=== PATIENT | female | born 1975 | race Caucasian/White ===

== ENCOUNTER 2020-07-22 16:03 | Outpatient (REF) | payer OTHER, SELFPAY ==
--- NOTE | 2020-07-22 16:08 | MM_ITS ---
EXAMINATION: MM SCREENING DIGITAL BREAST TOMOSYNTHESIS, BILATERAL CLINICAL INFORMATION: Screening. Asymptomatic. The lifetime risk of breast cancer based on the Tyrer-Cuzick Model is 27%. COMPARISON: Mammography: July 05, 2019 and May 22, 2018 TECHNIQUE: Digital breast tomosynthesis is performed in both the craniocaudal and mediolateral oblique views along with computer-aided detection (CAD). Synthesized 2D images are generated from the tomosynthesis. FINDINGS: The breasts are extremely dense, which lowers the sensitivity of mammography (ACR BI-RADS breast composition Category d). There are no significant masses, abnormal calcifications, or other abnormalities. MM/MM tomosynthesis screening BI IMPRESSION: There are no significant changes from prior study. ASSESSMENT: BI-RADS 1: Negative RECOMMENDATION: Routine annual mammography screening. This patient's information was entered into a reminder system with a target due date for their next mammogram.
== END 2020-07-22 16:04 | disposition home or self-care (01) ==
LOC: HO.MAMMO 16:03
PROVIDERS: PCP Internal Medicine; Visit Provider Internal Medicine
DX: Z12.31 Encounter for screening mammogram for malignant neoplasm of breast (principal)
CPT/HCPCS: 77063; 77067

== ENCOUNTER 2021-01-20 14:43 | Outpatient (REF) | payer OTHER, SELFPAY ==
[2021-01-21 03:59] LABS: CT PCR NOT DETECTED (Not Detect.); NG PCR NOT DETECTED (Not Detect.)
[2021-01-21 10:02] LABS: BV Int Neg Control Negative (Negative); BV Int Pos Control Positive (Positive)
== END 2021-01-20 14:44 | disposition home or self-care (01) ==
LOC: HO.LAB 14:43
PROVIDERS: PCP Internal Medicine; Referring Provider Internal Medicine; Visit Provider Obstetrics & Gynecology
DX: Z01.411 Encounter for gynecological examination (general) (routine) with abnormal findings (principal); Z11.3 Encounter for screening for infections with a predominantly sexual mode of transmission; B37.3 Candidiasis of vulva and vagina; Z91.89 Other specified personal risk factors, not elsewhere classified
CPT/HCPCS: 87480; 87491; 87510; 87591; 87660

== ENCOUNTER 2021-01-28 08:38 | Outpatient (REF) | payer OTHER, SELFPAY ==
--- NOTE | ~2021-01-28 | MR_ITS ---
EXAMINATION: MR BREAST WITHOUT AND WITH CONTRAST, BILATERAL CLINICAL INFORMATION: 45-year-old for high-risk screening; family history mother at age 50. COMPARISON: Correlation to mammogram of 07/22/2020. TECHNIQUE: Imaging was performed with a dedicated breast coil. Prior to the administration of contrast, bilateral axial T1 and bilateral axial T2 weighted sequences were obtained. After the uneventful administration of?7.5 mL of Gadavist, dynamic contrast-enhanced VIBRANT series through the breasts in the axial plane were performed. Subtracted images were performed and reviewed. A delayed sagittal sequence through both breasts was acquired. Additionally, CAD post-processing, including maximum intensity projections, 3-D reconstructions and kinetic analysis, were performed an independent workstation and reviewed by the interpreting radiologist is a portion of this exam. FINDINGS: The patient's fibroglandular tissue demonstrates moderate background enhancement. LEFT BREAST: There is moderate background enhancement which decreases the overall sensitivity of this examination. There are multiple enhancing foci demonstrating subthreshold and progressive-type kinetics. There is an oval T2 bright mass in the 1 o'clock position, 7.6 cm from the nipple. This may represent an intramammary lymph node (axial subtracted image 52/124). There are no areas of mass or non-mass enhancement suspicious of malignancy. There are no secondary signs of malignancy. There are scattered bright masses consistent with small cysts. There are no additional findings on kinetic curve analysis. RIGHT BREAST: There is a oval enhancing T2 bright mass in the 10 o'clock position, 6 cm from the nipple measuring 2.9 cm. This appears to correspond to a intramammary lymph node which can be seen on mammography (axial subtracted image 68/124). Similar to the contralateral breast, there is moderate background enhancement which decreases the overall sensitivity of this examination. Multiple enhancing foci are also noted demonstrating subthreshold-type kinetics. There are no areas of mass or non-mass enhancement suspicious of malignancy. There are multiple T2 bright masses consistent with cysts. There are no additional findings on kinetic curve analysis. There is no suspicious internal mammary chain or axillary adenopathy. Limited views of the chest and abdomen are unremarkable. MR/MR breast BI wo/w con IMPRESSION: 1. Left breast with oval enhancing T2 bright mass 1 o'clock position which may represent an intramammary lymph node. 2. Right breast with oval enhancing T2 bright mass 10 o'clock position which may represent an intramammary lymph node. ASSESSMENT: LEFT BREAST: BI-RADS 3, probably benign. RIGHT BREAST: BI-RADS 3, probably benign. RECOMMENDATIONS: Short-interval follow-up in 6-12 months to assess findings in the breasts bilaterally.
== END 2021-01-28 08:39 | disposition home or self-care (01) ==
LOC: HO.MRI 08:38
PROVIDERS: PCP Internal Medicine; Visit Provider Obstetrics & Gynecology
DX: Z91.89 Other specified personal risk factors, not elsewhere classified (principal); Z80.3 Family history of malignant neoplasm of breast
CPT/HCPCS: 77049; A9585

== ENCOUNTER 2021-05-05 09:26 | Outpatient (REF) | payer OTHER, SELFPAY ==
[2021-05-05 11:20] LABS: MANUAL DIFF FLAG NO
[2021-05-05 11:26] LABS: Basophils Percent Auto 0.5 % (0-2); Eosinophils Absolute Auto 0.2 X10*3/uL (0.0-0.4); Eosinophils Percent Auto 4.1 % (0-4); Hematocrit 44.9 % (37-47); Hemoglobin 14.4 g/dl (12.0-16.0); Imm Gran Abs Auto 0.01 X10*3/uL (0.00-0.03); Imm Gran Pct Auto 0.2 % (0.0-0.4); Lymphocytes Absolute Auto 1.3 X10*3/uL (1.2-4.9); Lymphocytes Percent Auto 22.3 % (20-40); Mean Corpuscular HGB Conc 32.1 g/dl (31.0-35.0); Mean Corpuscular Hemoglobin 30.4 pg (27.0-33.0); Mean Corpuscular Volume 94.9 fL (80-98); Mean Platelet Volume 9.1 fL (9.4-12.3); Monocytes Absolute Auto 0.4 X10*3/uL (0.1-1.2); Monocytes Percent Auto 6.3 % (2-11); Neutrophils Absolute Auto 3.9 X10*3/uL (2.0-8.3); Neutrophils Percent Auto 66.6 % (45-73); Platelet Count 381 X10*3/uL (160-400); Red Blood Count 4.73 X10*6/uL (4.20-5.50); Red Cell Distribution Width 12.4 % (11.0-16.0); White Blood Count 5.9 X10*3/uL (4.8-10.8)
[2021-05-05 11:48] LABS: Alanine Aminotransferase 41 U/L (0-31); Albumin Level 4.2 g/dL (3.5-5.0); Alkaline Phosphatase 44 U/L (39-117); Anion Gap 10 (12-20); Aspartate Amino Transferase 26 U/L (5-31); Bilirubin Total 1.5 mg/dL (0.0-1.0); Blood Urea Nitrogen 12 mg/dL (9-16); Calcium 9.3 mg/dL (8.4-10.2); Carbon Dioxide 27 mmol/L (22-29); Chloride 103 mmol/L (96-108); Cholesterol 189 mg/dL; Estimated Glomerular Filt Rate > 60; Glucose Fasting 101 mg/dL (60-99); HDL Cholesterol 51 mg/dL; LDL Cholesterol Calculated 123 mg/dl; Potassium 4.2 mmol/L (3.3-5.1); Sodium 136 mmol/L (135-145); Total Protein 6.9 g/dL (6.5-8.0); Triglycerides 76 mg/dL
[2021-05-05 12:09] LABS: Free T4 (Free Thyroxine) 1.11 ng/dL (0.71-1.85); Thyroid Stimulating Hormone 0.77 uIU/mL (0.32-4.0)
[2021-05-05 12:21] LABS: Estimated Average Glucose 97 mg/dL
== END 2021-05-05 09:27 | disposition home or self-care (01) ==
LOC: HO.MANLDS 09:26
PROVIDERS: PCP Physician Assistant; Visit Provider Physician Assistant
DX: Z00.00 Encounter for general adult medical examination without abnormal findings (principal); R63.5 Abnormal weight gain
CPT/HCPCS: 36415; 80053; 80061; 83036; 84439; 84443; 85025

== ENCOUNTER 2021-08-31 16:24 | Outpatient (REF) | payer OTHER, SELFPAY ==
--- NOTE | ~2021-08-31 | MM_ITS ---
EXAMINATION: MM SCREENING DIGITAL BREAST TOMOSYNTHESIS, BILATERAL CLINICAL INFORMATION: Screening. Asymptomatic. Family history breast cancer, mother. The lifetime risk of breast cancer based on the Tyrer-Cuzick Model is 25%. COMPARISON: Mammography: 07/22/2020, 07/05/2019, 05/22/2018; bilateral breast MRI 01/28/2021 TECHNIQUE: Digital breast tomosynthesis is performed in both the craniocaudal and mediolateral oblique views along with computer-aided detection (CAD). Synthesized 2D images are generated from the tomosynthesis. Additional right MLO view is provided. FINDINGS: The breasts are heterogeneously dense, which may obscure small masses (ACR BI-RADS breast composition Category c). There are no significant masses, abnormal calcifications, or other abnormalities. Parenchymal pattern is similar to prior studies. There is no developing density or architectural abnormality. The axilla and skin contours are unremarkable. No significant changes. MM/MM tomosynthesis screening BI IMPRESSION: There are no significant changes from prior study. ASSESSMENT: BI-RADS 1: Negative RECOMMENDATION: 1. Routine annual mammography screening. 2. The lifetime risk of breast cancer based on the Tyrer-Cuzick Model is 25%. Additional annual adjunct screening with breast MRI may be of benefit in women with a risk score of 20% or greater. This patient's information was entered into a reminder system with a target due date for their next mammogram.
== END 2021-08-31 16:25 | disposition home or self-care (01) ==
LOC: HO.MAMMO 16:24
PROVIDERS: PCP Physician Assistant; Visit Provider Physician Assistant
DX: Z12.31 Encounter for screening mammogram for malignant neoplasm of breast (principal)
CPT/HCPCS: 77063; 77067

== ENCOUNTER 2021-09-03 15:01 | Outpatient (REF) | payer OTHER, SELFPAY ==
--- NOTE | ~2021-09-03 | MR_ITS ---
EXAMINATION: MR BREAST WITHOUT AND WITH CONTRAST, BILATERAL CLINICAL INFORMATION: Previous abnormal high risk screening. The estimated lifetime risk of developing breast cancer is 25% Previous MRI 01/28/21 demonstrated probably benign findings in each breast for which short-interval follow-up was recommended Oval enhancing T2 intense mass 1 o'clock position left breast with probably benign features. Oval enhancing T2 intense mass 10 o'clock position right breast with probably benign features. COMPARISON: Portions of a previous MRI 01/28/2021. Mammography (nondiagnostic monitor review): 08/31/2021 TECHNIQUE: A 1.5 T system and a dedicated breast coil. T1-weighted sequences without fat-saturation were obtained prior to the administration of contrast. Fat-saturated T1 and T2-weighted sequences were also acquired. The patient received 8.5 mL of IV gadolinium-based contrast, Gadavist. Multiple sequential dynamic T1-weighted sequences were obtained through both breasts with fat-saturation. Subtracted images were reviewed. CAD postprocessing with 3-D reconstructions, maximum intensity projections and kinetic analysis was performed by the interpreting radiologist at an independent workstation and reviewed as a portion of this exam. FINDINGS: Amount of Remaining Fibroglandular Signal: There is heterogeneous fibroglandular tissue, which may obscure small masses(ACR BI-RADS breast composition category C).* Background Parenchymal Enhancement: Mild Symmetry of Background Enhancement: Symmetric RIGHT BREAST: There is a circumscribed T2 intense bilobed early enhancing mass in the 10 o'clock position, 6 cm from the right nipple (series 100, image 58). 09/03/2021 - 1.0 cm 01/28/2021 - 1.1 cm No suspicious interval change. There is no mammographic correlate. Masses: There are no other suspicious enhancing masses. Non-mass Enhancement: There is no suspicious non-mass enhancement. Focus: There are no suspicious enhancing foci. Non-enhancing Findings: Associated findings: There are some small cysts. Kinetic Curve Assessment: Initial Phase: There are no suspicious areas of color signal. Delayed Phase: There are no areas of washout kinetics. LEFT BREAST: There is a circumscribed oval T2 intense early enhancing mass in the 1 o'clock position, 8 cm from the left nipple (series 102, image 59). 09/03/2021 - 0.6 cm 01/28/2021 - 0.7 cm No suspicious interval change. No suspicious mammographic correlate. Masses: There are no other suspicious enhancing masses. Non-mass Enhancement: There is no suspicious non-mass enhancement. Focus: There are no suspicious enhancing foci. Non-enhancing Findings: Associated Findings: There are no suspicious associated findings. Kinetic Curve Assessment: Initial Phase: There are no areas of suspicious color signal. Delayed Phase: There are no areas of washout kinetics. The axillary lymph nodes are morphologically normal. No suspicious internal mammary lymph nodes are seen. No suspicious abnormality in the visualized portions of chest or abdomen. MR/MR breast BI wo/w con IMPRESSION: No interval change in small T2 intense circumscribed early enhancing masses in each breast. Recommend high-risk screening MRI in one year No new suspicious abnormality. ASSESSMENT: Right Breast: ACR BI-RADS 2: Benign finding. Left Breast: ACR BI-RADS 2: Benign finding. RECOMMENDATIONS: Continue screening.
== END 2021-09-03 15:02 | disposition home or self-care (01) ==
LOC: HO.MRI 15:01
PROVIDERS: Visit Provider Obstetrics & Gynecology
DX: Z91.89 Other specified personal risk factors, not elsewhere classified (principal)
CPT/HCPCS: 77049; A9585

== ENCOUNTER → 2021-10-07 08:36 | Outpatient (BNVA) | payer OTHER, SELFPAY | PROVIDERS: PCP Physician Assistant; Visit Provider Obstetrics & Gynecology ==

== ENCOUNTER 2021-11-02 14:30 | Outpatient (REF) | payer OTHER, SELFPAY ==
[2021-11-02 17:20] LABS: CT PCR NOT DETECTED (Not Detect.); NG PCR NOT DETECTED (Not Detect.)
== END 2021-11-02 14:31 | disposition home or self-care (01) ==
LOC: HO.LAB 14:30
PROVIDERS: PCP Physician Assistant; Visit Provider Obstetrics & Gynecology
DX: Z30.433 Encounter for removal and reinsertion of intrauterine contraceptive device (principal); Z87.891 Personal history of nicotine dependence
CPT/HCPCS: 58300; 58301; 81025; 87491; 87591

== ENCOUNTER → 2021-12-13 11:03 | Outpatient (BNVA) | payer OTHER, SELFPAY | PROVIDERS: Visit Provider Obstetrics & Gynecology | DX: Z30.431 Encounter for routine checking of intrauterine contraceptive device (principal) | CPT/HCPCS: 81025 ==

== ENCOUNTER 2022-01-24 15:26 | Outpatient (REF) | payer OTHER, SELFPAY ==
[2022-01-27 17:02] LABS: HPV mRNA E6/E7 rflx Detected (Not Detected)
[2022-01-27 17:22] LABS: HPV 16 RNA DETECTED (NOT DETECTED)
== END 2022-01-24 15:27 | disposition home or self-care (01) ==
LOC: HO.LAB 15:26
PROVIDERS: Visit Provider Obstetrics & Gynecology
DX: Z01.419 Encounter for gynecological examination (general) (routine) without abnormal findings (principal); Z11.51 Encounter for screening for human papillomavirus (HPV)
CPT/HCPCS: 87624; 87625; 88142

== ENCOUNTER 2022-03-02 12:48 | Outpatient (REF) | payer OTHER, SELFPAY | END 2022-03-02 12:49 | disposition home or self-care (01) | LOC: HO.LAB 12:48 | PROVIDERS: PCP Internal Medicine; Visit Provider Obstetrics & Gynecology | DX: Z32.02 Encounter for pregnancy test, result negative (principal); R87.613 High grade squamous intraepithelial lesion on cytologic smear of cervix (HGSIL) | CPT/HCPCS: 57454; 81025; 88305 ==

== ENCOUNTER → 2022-03-10 09:59 | Outpatient (BNVA) | payer OTHER, SELFPAY | PROVIDERS: PCP Internal Medicine; Visit Provider Obstetrics & Gynecology | DX: Z30.432 Encounter for removal of intrauterine contraceptive device (principal); D06.9 Carcinoma in situ of cervix, unspecified | CPT/HCPCS: 58301; 81025 ==

== ENCOUNTER 2022-03-18 08:51 | Day surgery (SDC) | payer OTHER, SELFPAY ==
--- NOTE | 2022-03-17 08:36 | P.CONAN_ITS ---
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 (Acute) HGSIL (high grade squamous intraepithelial lesion) on Pap smear of cervix (Acute) Encounter for IUD removal and reinsertion (Acute) Contraceptive management (Acute) IUD check up (Acute) Candidal vulvovaginitis (Acute) At high risk for breast cancer (Acute) Well woman exam (Acute) Past Medical History Medical History Asthma Family History Family History Mother Breast CA Father Diabetes Maternal Aunt Non-Hodgkin lymphoma Paternal Uncle Lung cancer Social History Social History Alcohol intake: former Patient Tobacco Use Status: Former Tobacco user Quit Date: 2015 Tobacco use type: Cigarette Use of substances other than those prescribed or required for medical reasons: No Are you DNR?: No Advance Directives: No Advance Directives Information Provided: Yes Recently lost weight without trying: No Nutrition Risks: No Nutritional Risk Meds Allergies Allergy/AdvReac Type Severity Reaction Status Date / Time No Known Allergies Allergy Verified 01/24/22 15:01 Home Medications Medication Instructions Recorded Confirmed Last Taken Type montelukast 10 mg tablet 10 mg PO QPM 01/20/21 02/05/21 Unknown History Surinamese Ginseng 1 tab PO DAILY 02/05/21 02/05/21 Unknown History Benadryl Allergy 25 mg PO PRN Allergy Symptoms 02/05/21 Unknown History magnesium 1 tab PO DAILY 02/05/21 02/05/21 Unknown History copper 380 square mm intrauterine intrauterine 12/13/21 Unknown History device (ParaGard T 380A) albuterol sulfate 90 mcg/actuation 2 puff inhalation Q6H PRN 01/24/22 Unknown History aerosol inhaler albuterol sulfate 90 mcg/actuation 2 puff inhalation Q6H PRN 01/24/22 Unknown History aerosol inhaler bupropion HCl 150 mg tablet,12 hr 150 mg PO QAM 01/24/22 Unknown History sustained-release (Wellbutrin SR) Exam Exam Date and Time: March 17, [id number] Assessment and Plan Assessment Anesthesia Assessment: PAT Visit Documented by User: Rafael Bonilla MD 03/18/22 10:14 [facility] Past Medical History Medical History Asthma Family History Family History Mother Breast CA Father Diabetes Maternal Aunt Non-Hodgkin lymphoma Paternal Uncle Lung cancer Family history of problems with anesthesia: No Surgical History History of Problems with Anesthesia: No Social History Social History Alcohol intake: former Patient Tobacco Use Status: Former Tobacco user Quit Date: 2015 Tobacco use type: Cigarette Use of substances other than those prescribed or required for medical reasons: No Are you DNR?: No Advance Directives: No Advance Directives Information Provided: Yes Recently lost weight without trying: No Nutrition Risks: No Nutritional Risk Meds Allergies Allergy/AdvReac Type Severity Reaction Status Date / Time No Known Allergies Allergy Verified 01/24/22 15:01 Home Medications Medication Instructions Recorded Confirmed Last Taken Type montelukast 10 mg tablet 10 mg PO QPM 01/20/21 02/05/21 Unknown History Surinamese Ginseng 1 tab PO DAILY 02/05/21 02/05/21 Unknown History Benadryl Allergy 25 mg PO PRN Allergy Symptoms 02/05/21 Unknown History magnesium 1 tab PO DAILY 02/05/21 02/05/21 Unknown History copper 380 square mm intrauterine intrauterine 12/13/21 Unknown History device (ParaGard T 380A) albuterol sulfate 90 mcg/actuation 2 puff inhalation Q6H PRN 01/24/22 Unknown History aerosol inhaler albuterol sulfate 90 mcg/actuation 2 puff inhalation Q6H PRN 01/24/22 Unknown History aerosol inhaler bupropion HCl 150 mg tablet,12 hr 150 mg PO QAM 01/24/22 Unknown History sustained-release (Wellbutrin SR) Exam Airway Mallampati Class: I TM Dist: >3cm Neck ROM: Full Loose/Missing/Broken Teeth: No (Rrr) Lungs: clear Assessment and Plan Final Anesthetic Review Family History of Problems with Anesthesia: No History of Problems with Anesthesia: No NPO: Yes ASA Class: I Final Preanesthetic Review: No Changes in Pt Med Stat, Meds/Allgs Chart Reviewed, Consent Obtained/Reviewed and Anes Risks/Benef Reviewed Patient Risk: Low Procedure Risk: Low Anesthetic Plan Anesthetic Plan: GA Disposition: Standard PACU
[2022-03-18 09:13] VITALS: BMI 27.4
[2022-03-18 09:19] LABS: UPreg QC Valid YES; Urine Pregnancy NEGATIVE (NEGATIVE)
[2022-03-18 09:26] VITALS: BP 117/62; PULSE 86; RESP 16; TEMP 36.7; O2SAT 99
[2022-03-18] MEDS: Lactated Ringers 1,000 ML 100 ML IVCONT (09:40)
--- NOTE | 2022-03-18 10:55 | MHC.SHP ---
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 No changes have occurred unless specified.
--- NOTE | 2022-03-18 10:55 | PM.OP ---
Brief Operative Note Date of Service: 03/18/22 Pre-op diagnosis: MAITE 3 with positive ECC Post-op diagnosis: same Procedure: LEEP CONE with post CONE ECC Surgeon: Eb Griffin MD Anesthesia: GLMA and other (Paracervical block) Was an Trimmer And Reinforcer used for this Procedure?: No Estimated blood loss (mL): 0 Pathology: other (Cervical cone, anterior cervical deeper layer, posterior cervical LEEP later, endocervix, post cone ECC) Condition: stable Disposition: other (Home)
--- NOTE | 2022-03-18 10:56 | W.PM.OPN ---
Operative Note Operative Note Date of Service: 03/18/22 Narrative: Pre op diagnosis: MAITE 3 with positive ECC Operation: Colposcopy, Loop electrical excision procedure cone, top hat endocervical excision, post cone ECC Postop diagnosis: the same Quantitative blood loss: 50 cc Surgeon: Eb Griffin MD, FACOG [employer] Logistics Manager: None Pathology: Cervical cone marked to with at 12:00 o'clock suture, anterior cervical lip wider and deeper, posterior cervical lip wider and deeper , endocervix & post cone ECC Complications: none Anesthesia: GLMA and Para cervical block Procedure: The patient was put in a dorsal lithotomy position, scrubbed and draped in the usual sterile fashion. A speculum was inserted inside the patient's vagina. The cervix is assessed using the colposcope with acetic acid , the lesions were seen, and at least 1 cm of the squamocolumnar junction was observed. 20 x 5 mm size loop was selected based upon the diameter of the lesion. Lugol solution was used to outline the lesions and area of the transformation zone order to be removed 10 cc of xylocaine with epinephrine were injected submucosally into the surface of the cervix (ectocervix) at the 3, 6, 9, and 12 o'clock positions. The electrosurgical generator is set at 50 perry on blend 1. The loop is carefully passed simultaneously around and under the transformation zone, in order to ensure excising it making sure the lesion is at least 5 mm far from the specimen margins . The loop was allowed to glide through the cervix from one side to the other, allowing the cutting current to divide the tissue. This was followed by a wider and deeper excision of the anterior cervical lip and a wider and deeper excision of the posterior cervical Since ECC was positive additional tissue was excised from this area with a smaller-diameter loop , endo cervical excision was performed. An endo cervical curettage is performed following completion of excision, and hemostasis is obtained with a Ball electrode or regular tip cautery. At the end, Monsel's solution was applied to the cone bed. The patient tolerated the procedure well and, all instruments were taken out of the patient vaginal cavity, and the patient was transferred to the PACU in stable condition.
[2022-03-18 11:04] VITALS: BP 98/50; PULSE 72; RESP 16; TEMP 36.3; O2SAT 100
[2022-03-18 11:09] VITALS: BP 110/55; PULSE 68; RESP 16; O2SAT 100
[2022-03-18 11:14] VITALS: BP 106/56; PULSE 68; RESP 16; O2SAT 100
[2022-03-18 11:19] VITALS: BP 113/58; PULSE 67; RESP 16; O2SAT 100
[2022-03-18] MEDS: oxyCODONE HCl Immed Release 5 MG TABLET PO (11:32)
[2022-03-18 11:36] VITALS: BP 120/61; PULSE 64; RESP 46; TEMP 36.6; O2SAT 100
== END 2022-03-18 12:22 | disposition home or self-care (01) ==
PROVIDERS: Nurse Practitioner; PCP Internal Medicine; Visit Provider Obstetrics & Gynecology
PROC: 0UBC7ZZ Excision of Cervix, Via Natural or Artificial Opening (ICD-10-PCS; CPT 57522; principal; 2022-03-18 10:50)
DX: D06.0 Carcinoma in situ of endocervix (principal); J45.909 Unspecified asthma, uncomplicated; Z87.891 Personal history of nicotine dependence
CPT/HCPCS: 57460; 81025; 88305; 88307; J1100; J1885; J2250; J2405

== ENCOUNTER 2022-05-10 09:37 | Outpatient (REF) | payer OTHER, SELFPAY ==
[2022-05-10 11:03] LABS: MANUAL DIFF FLAG NO
[2022-05-10 11:33] LABS: Estimated Average Glucose 91 mg/dL; Hemoglobin A1c % 4.8 %
[2022-05-10 11:57] LABS: Alanine Aminotransferase 19 U/L (0-31); Albumin Level 4.2 g/dL (3.5-5.0); Alkaline Phosphatase 44 U/L (39-117); Anion Gap 14 (12-20); Aspartate Amino Transferase 18 U/L (5-31); Bilirubin Total 1.1 mg/dL (0.0-1.0); Blood Urea Nitrogen 13 mg/dL (9-16); Calcium 9.1 mg/dL (8.4-10.2); Carbon Dioxide 25 mmol/L (22-29); Chloride 105 mmol/L (96-108); Cholesterol 133 mg/dL; Estimated Glomerular Filt Rate > 60; Glucose Random 92 mg/dL (60-115); HDL Cholesterol 41 mg/dL; Iron 88 mcg/dL (30-160); LDL Cholesterol Calculated 81 mg/dl; Percent Iron Saturation 32 % (15-50); Potassium 4.3 mmol/L (3.3-5.1); Sodium 140 mmol/L (135-145); Total Iron Binding Capacity 278 mcg/dL (228-428); Total Protein 6.7 g/dL (6.5-8.0); Triglycerides 55 mg/dL; Unsaturated Iron Binding 190 ug/dL
[2022-05-10 12:08] LABS: Basophils Absolute Auto 0.1 X10*3/uL (0.0-0.2); Basophils Percent Auto 0.7 % (0-2); Eosinophils Absolute Auto 0.1 X10*3/uL (0.0-0.4); Eosinophils Percent Auto 1.9 % (0-4); Hematocrit 41.7 % (37.0-47.0); Hemoglobin 13.8 g/dl (12.0-16.0); Imm Gran Abs Auto 0.02 X10*3/uL (0.00-0.03); Imm Gran Pct Auto 0.3 % (0.0-0.4); Lymphocytes Absolute Auto 1.2 X10*3/uL (1.2-4.9); Lymphocytes Percent Auto 17.7 % (20-40); Mean Corpuscular HGB Conc 33.1 g/dl (31.0-35.0); Mean Corpuscular Hemoglobin 31.6 pg (27.0-33.0); Mean Corpuscular Volume 95.4 fL (80.0-98.0); Mean Platelet Volume 9.5 fL (9.4-12.3); Monocytes Absolute Auto 0.4 X10*3/uL (0.1-1.2); Neutrophils Percent Auto 73.4 % (45-73); Platelet Count 324 X10*3/uL (160-400); Red Blood Count 4.37 X10*6/uL (4.20-5.50); White Blood Count 6.8 X10*3/uL (4.8-10.8)
[2022-05-10 12:10] LABS: Folate 12.3 ng/mL (> or = 4.0); Vitamin B12 751 pg/mL (200-900)
[2022-05-10 14:04] LABS: Ferritin 89 ng/mL (10-250); Free T4 (Free Thyroxine) 1.04 ng/dL (0.71-1.85); Thyroid Stimulating Hormone 0.67 uIU/mL (0.32-4.0); Vitamin D 25-OH Total 29.1 ng/mL (>30)
== END 2022-05-10 09:38 | disposition home or self-care (01) ==
LOC: HO.MANLDS 09:37
PROVIDERS: Visit Provider Physician Assistant
DX: Z00.00 Encounter for general adult medical examination without abnormal findings (principal)
CPT/HCPCS: 36415; 80053; 80061; 82306; 82607; 82728; 82746; 83036; 83540; 84439; 84443; 85025

== ENCOUNTER 2022-08-15 07:52 | Outpatient (REF) | payer OTHER, SELFPAY ==
[2022-08-15 09:12] LABS: Hematocrit 42.2 % (37.0-47.0); Hemoglobin 13.7 g/dl (12.0-16.0); Mean Corpuscular HGB Conc 32.5 g/dl (31.0-35.0); Mean Corpuscular Hemoglobin 31.1 pg (27.0-33.0); Mean Corpuscular Volume 95.7 fL (80.0-98.0); Mean Platelet Volume 8.9 fL (9.4-12.3); Platelet Count 358 X10*3/uL (160-400); Red Blood Count 4.41 X10*6/uL (4.20-5.50); Red Cell Distribution Width 12.8 % (11.0-16.0); White Blood Count 12.7 X10*3/uL (4.8-10.8)
[2022-08-15 09:50] LABS: HCG Quantitative < 2 mIU/mL; TSH reflex Free T4 0.51 uIU/mL (0.32-4.0)
[2022-08-15 14:12] LABS: CT PCR NOT DETECTED (Not Detect.); NG PCR NOT DETECTED (Not Detect.)
== END 2022-08-15 07:53 | disposition home or self-care (01) ==
LOC: HO.LNP 07:52
PROVIDERS: PCP Internal Medicine; Visit Provider Obstetrics & Gynecology
DX: N93.9 Abnormal uterine and vaginal bleeding, unspecified (principal); D06.9 Carcinoma in situ of cervix, unspecified; Z91.89 Other specified personal risk factors, not elsewhere classified; Z30.09 Encounter for other general counseling and advice on contraception
CPT/HCPCS: 0353U; 84443; 84702; 85027

== ENCOUNTER 2022-08-25 15:51 | Outpatient (REF) | payer OTHER, SELFPAY ==
--- NOTE | ~2022-08-25 | MR_ITS ---
EXAMINATION: MR BREAST WITHOUT AND WITH CONTRAST, BILATERAL CLINICAL INFORMATION: High-risk screening. COMPARISON: MRI 09/03/2021, 01/28/2021 TECHNIQUE: Imaging was performed with a dedicated breast coil. Prior to the administration of contrast, bilateral axial T1 and bilateral axial T2 weighted sequences were obtained. After the uneventful administration of?6.5 mL of Gadavist, dynamic contrast-enhanced VIBRANT series through the breasts in the axial plane were performed. Subtracted images were performed and reviewed. A delayed sagittal sequence through both breasts was acquired. Additionally, CAD post-processing, including maximum intensity projections, 3-D reconstructions and kinetic analysis, were performed an independent workstation and reviewed by the interpreting radiologist is a portion of this exam. FINDINGS: The patient's fibroglandular tissue demonstrates moderate background enhancement. LEFT BREAST: No suspicious masslike or non-masslike enhancement. No abnormal skin thickening or nipple retraction. No abnormal architectural distortion. Review of the T2 weighted images demonstrates no fibrocystic changes or dilated ducts. Review of kinetic images reveals no additional findings. RIGHT BREAST: In the 1:00 position, 4 cm from the nipple, there is a 4 mm focus of enhancement with mostly circumscribed margins a be a new finding compared to previous studies. Finding is mildly hyperintense on review of T2-weighted images and considered probably benign. Recommend attention on follow-up MRI in one year (image 46, series 700). No suspicious masslike or non-masslike enhancement. No abnormal skin thickening or nipple retraction. No abnormal architectural distortion. Review of the T2 weighted images demonstrates no fibrocystic changes or dilated ducts. Review of kinetic images reveals no additional findings. There is no suspicious internal mammary chain or axillary adenopathy. Limited views of the chest and abdomen are unremarkable. MR/MR breast BI wo/w con IMPRESSION: Probably benign focus of enhancement, right breast, 1:00. Otherwise, no MR specific evidence of malignancy. ASSESSMENT: LEFT BREAST: BI-RADS 1-Negative RIGHT BREAST: BI-RADS 3 - Probably benign finding (s). Short interval followup suggested. RECOMMENDATIONS: Follow-up MRI in one year.
== END 2022-08-25 15:52 | disposition home or self-care (01) ==
LOC: HO.MRI 15:51
PROVIDERS: PCP Internal Medicine; Visit Provider Obstetrics & Gynecology
DX: Z12.39 Encounter for other screening for malignant neoplasm of breast (principal); Z91.89 Other specified personal risk factors, not elsewhere classified
CPT/HCPCS: 77049

== ENCOUNTER 2022-09-02 13:40 | Outpatient (REF) | payer OTHER, SELFPAY ==
--- NOTE | ~2022-09-02 | MM_ITS ---
EXAMINATION: MM SCREENING DIGITAL BREAST TOMOSYNTHESIS, BILATERAL CLINICAL INFORMATION: Screening. Asymptomatic. The lifetime risk of breast cancer based on the Tyrer-Cuzick Model is 25.4%. Additional annual screening with breast MRI may be of benefit in women with a score of 20% or greater. COMPARISON: Mammography: MRI of August 25, 2022 and studies dating back to December 08, 2008 TECHNIQUE: Digital breast tomosynthesis is performed in both the craniocaudal and mediolateral oblique views along with computer-aided detection (CAD). Synthesized 2D images are generated from the tomosynthesis. FINDINGS: The breasts are heterogeneously dense, which may obscure small masses (ACR BI-RADS breast composition Category c). There are no significant masses, abnormal calcifications, or other abnormalities. MM/MM tomosynthesis screening BI IMPRESSION: No significant changes from prior exam. ASSESSMENT: BI-RADS 1: Negative RECOMMENDATION: Routine annual mammography screening. This patient's information was entered into a reminder system with a target due date for their next mammogram.
== END 2022-09-02 13:41 | disposition home or self-care (01) ==
LOC: HO.MAMMO 13:40
PROVIDERS: PCP Internal Medicine; Visit Provider Internal Medicine
DX: Z12.31 Encounter for screening mammogram for malignant neoplasm of breast (principal)
CPT/HCPCS: 77063; 77067

== ENCOUNTER 2022-09-05 14:18 | Outpatient (REF) | payer OTHER, SELFPAY ==
--- NOTE | ~2022-09-05 | US_ITS ---
EXAMINATION: US PELVIS CLINICAL INFORMATION: Abnormal uterine and vaginal bleeding; the last menstrual period was on 08/15/2022. COMPARISON: None TECHNIQUE: Ultrasound of the pelvis is performed using both transabdominal and transvaginal transducers along with Doppler. Transvaginal imaging is performed due to inadequate visualization transabdominally. FINDINGS: Uterus: The uterus is anteverted and measures 8.8 x 3.1 x 4.4 cm. The uterus is anteverted and anteflexed. There are punctate calcifications within the cervix. The double wall endometrial thickness is 6 mm. The uterus is smooth in contour and has normal myometrial echogenicity. No visible fibroid. Adnexa: Both ovaries are visualized. There is normal color flow to the adnexa. There is no ovarian torsion. There is a small amount of nonspecific free fluid adjacent to the right ovary. Right ovary measures 2.7 x 2.1 x 2.4 cm (volume 7.1 mL). A 1.8 x 1.4 x 1.9 cm right ovarian corpus luteum cyst is seen. Left ovary measures 2.0 x 1.6 x 1.6 cm (volume 2.7 mL). US/US pelvic and transvaginal IMPRESSION: 1. A 1.9 cm in maximal diameter right ovarian corpus luteum cyst is seen. 2. There is a small amount nonspecific free fluid adjacent to the right ovary.
== END 2022-09-05 14:19 | disposition home or self-care (01) ==
LOC: HO.US 14:18
PROVIDERS: PCP Internal Medicine; Visit Provider Obstetrics & Gynecology
DX: N93.9 Abnormal uterine and vaginal bleeding, unspecified (principal)
CPT/HCPCS: 76830; 76856

== ENCOUNTER 2022-09-12 11:42 | Outpatient (REF) | payer OTHER, SELFPAY | END 2022-09-12 11:43 | disposition home or self-care (01) | LOC: HO.LNP 11:42 | PROVIDERS: PCP Internal Medicine; Visit Provider Obstetrics & Gynecology | DX: N93.9 Abnormal uterine and vaginal bleeding, unspecified (principal) | CPT/HCPCS: 58100; 81025; 88305 ==

== ENCOUNTER → 2022-09-13 15:07 | Outpatient (BNVA) | payer OTHER, SELFPAY | PROVIDERS: PCP Internal Medicine; Visit Provider Surgery | DX: Z13.89 Encounter for screening for other disorder (principal) ==

== ENCOUNTER → 2022-09-26 10:32 | Outpatient (BNVA) | payer OTHER, SELFPAY | PROVIDERS: PCP Internal Medicine; Visit Provider Obstetrics & Gynecology | DX: Z13.89 Encounter for screening for other disorder (principal) ==

== ENCOUNTER 2022-10-03 11:05 | Outpatient (REF) | payer OTHER, SELFPAY ==
[2022-10-05 01:10] LABS: HPV mRNA E6/E7 rflx Not Detected (Not Detected)
== END 2022-10-03 11:06 | disposition home or self-care (01) ==
LOC: HO.LNP 11:05
PROVIDERS: PCP Internal Medicine; Visit Provider Obstetrics & Gynecology
DX: D06.9 Carcinoma in situ of cervix, unspecified (principal)
CPT/HCPCS: 87624; 88142

== ENCOUNTER 2022-12-01 12:29 | Outpatient (REF) | payer OTHER, SELFPAY | END 2022-12-01 12:30 | disposition home or self-care (01) | LOC: HO.LNP 12:29 | PROVIDERS: PCP Internal Medicine; Visit Provider Obstetrics & Gynecology | DX: Z32.02 Encounter for pregnancy test, result negative (principal); R87.610 Atypical squamous cells of undetermined significance on cytologic smear of cervix (ASC-US) | CPT/HCPCS: 57454; 81025; 88305; 88342; 88360 ==

== ENCOUNTER 2022-12-20 11:45 | Outpatient (REF) | payer OTHER, SELFPAY | END 2022-12-20 11:46 | disposition home or self-care (01) | LOC: HO.LNP 11:45 | PROVIDERS: PCP Internal Medicine; Visit Provider Obstetrics & Gynecology | DX: R87.610 Atypical squamous cells of undetermined significance on cytologic smear of cervix (ASC-US) (principal) | CPT/HCPCS: 57454; 88305 ==

== ENCOUNTER 2023-03-14 15:06 | Outpatient (AMB) | payer OTHER, SELFPAY ==
--- NOTE | 2023-03-14 15:08 | MHC.OFFVIS ---
Intake Vital Signs 03/14/23 15:17 Height 5 ft 2 in Weight 145 lb BMI 26.5 BP 120/58 L Blood Pressure Location Lt brachial Position Sitting Pulse 68 Intake Visit Reasons: 6 mth follow up breast exam Intake Note: Patient is seen in office for 6 month follow up visit, breast exam. Patient c/0: denies any concerns or changes since last visit Irish [employer] Operator Required: No Accompanied by: Self / Same As Patient Allergies No Known Allergies Allergy (Verified 03/14/23 15:17) HPI HPI Comments History of Present Illness Details 47-year-old female patient with a known strong family history of breast cancer including her mother and maternal aunt, determined to be high risk for breast cancer due to her family history with a Tyrer-Cuzick remaining lifetime risk of breast cancer of 25%. She has been followed by Dr. Griffin and Bk for this high risk and has previously undergone yearly breast MRI and mammograms. Genetic testing performed by Dr. Bourgeois is reported to be negative for any clinically significant genetic mutations or mutations of unknown significance. Her most recent mammogram performed on 09/05/2022 revealed no suspicious findings and no significant changes from her prior study (BI-RADS 1). Breast MRI on 08/25/2022?revealed a focus of enhancement in the 1 o'clock position of the right breast, 4 cm from the nipple, 4 mm in diameter with circumscribed margins felt to be new from the previous studies. The finding was felt to be low suspicion for malignancy and short-term follow-up recommended in 1 year. The patient denies any palpable mass, skin change, nipple discharge, or enlarged lymph nodes in either breast. She denies a previous history of breast problems or breast surgery. She is with 1 ab. Menarche at 14 years old, LMP on 09/11/2022. 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 Gender identity: Female Female Reproductive History Menstrual Age of Menarche: 14 Review of Systems Const All systems reviewed & are unremarkable except as noted in HPI and below Denies chills, Denies fever(s), Denies headache(s), Denies poor appetite and Denies weakness ENT Denies headache(s) Card Denies chest pain, Denies irregular heart rhythm, Denies palpitations and Denies dyspnea Resp Denies cough, Denies excessive phlegm production and Denies dyspnea GI Denies abdominal pain, Denies bloating, Denies change in bowel habits, Denies constipation, Denies heartburn, Denies diarrhea, Denies nausea and Denies vomiting Denies urinary frequency Musc Denies back pain, Denies muscle weakness and Denies numbness Skin/Breast Denies changing lesions and Denies unusual bruising Neuro Denies headache(s), Denies numbness, Denies paresthesias and Denies weakness Psych Denies anxiety and Denies depression Endo Denies palpitations Rich/Lymph Denies lymphadenopathy Physical Exam Vital Signs: Last Vital Signs Pulse 68 03/14/23 15:17 BP 120/58 L 03/14/23 15:17 BMI result Body Mass Index 26.5 Const General: cooperative and no acute distress Nutritional Appearance: well nourished Orientation/consciousness: patient oriented x3 Limitations: no limitations HEENT Head: Yes normocephalic and Yes atraumatic Ears: hearing grossly normal bilaterally Chest Other: Left breast: No skin change, no nipple retraction, no nipple discharge, no palpable mass, no enlarged lymph nodes. Right breast: No skin change, no nipple retraction, no nipple discharge, no palpable mass, no enlarged lymph nodes Resp Effort & Inspection: normal respiratory effort, no audible wheezes, no cough and no respiratory distress Cardio Jugular venous distension: no JVD GI Inspection: Yes normal to inspection Skin Other: Warm, dry, no rash Neuro General: patient oriented x3 Extrem General: Yes no clubbing, cyanosis or edema Assessment & Plan Assessment & Plan (1) At high risk for breast cancer: Code(s): Z91.89 - Other specified personal risk factors, not elsewhere classified (2) Family history of breast cancer: Code(s): Z80.3 - Family history of malignant neoplasm of breast Plan 47-year-old female patient with a strong family history of breast cancer in both her mother and maternal aunt presenting for a high risk breast cancer evaluation. She should continue with the yearly breast MRI alternating with mammograms q.6 month. I encouraged her to perform breast self examinations every month. I also suggested she return in 6 months for routine breast examination. She is welcome to call sooner for any new breast concerns. She expressed understanding and agrees with the plan. Orders: Orders MM screening mammo BI 09/04/23 Z80.3 - Family history of malignant neoplasm of breast, Z91.89 - Other specified personal risk factors, not elsewhere classified MR breast BI wo/w con 08/28/23 Z80.3 - Family history of malignant neoplasm of breast, Z91.89 - Other specified personal risk factors, not elsewhere classified Coding Level of Care Code Est Pt Level 3 (27500) Diagnoses At high risk for breast cancer Z91.89 Family history of breast cancer Z80.3
[2023-03-14 15:17] VITALS: BP 120/58; PULSE 68; BMI 26.5
== END 2023-03-14 15:31 | disposition home or self-care (01) ==
PROVIDERS: PCP Internal Medicine; Visit Provider Surgery
DX: Z91.89 Other specified personal risk factors, not elsewhere classified (principal); Z80.3 Family history of malignant neoplasm of breast
CPT/HCPCS: 99213

== ENCOUNTER → 2023-03-14 15:06 | Outpatient (BNVA) | payer SELFPAY | PROVIDERS: PCP Internal Medicine; Visit Provider Surgery ==

== ENCOUNTER 2023-03-31 11:48 | Outpatient (REF) | payer OTHER, SELFPAY ==
[2023-03-31 18:18] LABS: Erythrocyte Sedimentation Rate 5 MM/HR (0-20)
[2023-03-31 18:59] LABS: Alanine Aminotransferase 21 U/L (0-31); Albumin Level 4.3 g/dL (3.5-5.0); Alkaline Phosphatase 43 U/L (39-117); Amylase 59 U/L (28-100); Anion Gap 15 (12-20); Aspartate Amino Transferase 25 U/L (5-31); Bilirubin Total 1.4 mg/dL (0.0-1.0); Blood Urea Nitrogen 17 mg/dL (9-16); C Reactive Protein < 0.10 mg/dL (< or = 0.50); Carbon Dioxide 24 mmol/L (22-29); Chloride 100 mmol/L (96-108); Estimated Glomerular Filt Rate > 60; Glucose Random 63 mg/dL (60-115); Lipase 23 U/L (8-78); Potassium 3.9 mmol/L (3.3-5.1); Sodium 135 mmol/L (135-145); Total Protein 7.1 g/dL (6.5-8.0)
[2023-03-31 19:19] LABS: Gamma Glutamyl Transpeptidase 35 U/L (7-33)
== END 2023-03-31 11:49 | disposition home or self-care (01) ==
LOC: HO.MANLDS 11:48
PROVIDERS: Visit Provider Physician Assistant
DX: A07.8 Other specified protozoal intestinal diseases (principal); K29.60 Other gastritis without bleeding
CPT/HCPCS: 36415; 80053; 82150; 82977; 83690; 85652; 86140

== ENCOUNTER 2023-04-05 06:45 | Outpatient (REF) | payer OTHER, SELFPAY ==
[2023-04-05 15:27] LABS: Adenovirus F 40/41 Not Detected (Not Detect.); Astrovirus Not Detected (Not Detect.); Campylobacter Not Detected (Not Detect.); Cryptosporidium Not Detected (Not Detect.); Cyclospora cayetanensis Not Detected (Not Detect.); E. coli EAEC Not Detected (Not Detect.); E. coli EPEC Not Detected (Not Detect.); E. coli ETEC Not Detected (Not Detect.); E. coli STEC Not Detected (Not Detect.); Entamoeba histolytica Not Detected (Not Detect.); Giardia lamblia Not Detected (Not Detect.); Norovirus GI/GII Not Detected (Not Detect.); Plesiomonas shigelloides Not Detected (Not Detect.); Rotavirus A Not Detected (Not Detect.); Salmonella Not Detected (Not Detect.); Sapovirus Not Detected (Not Detect.); Shigella sp./EIEC Not Detected (Not Detect.); Vibrio Not Detected (Not Detect.); Vibrio Cholerae Not Detected (Not Detect.); Yersinia enterocolitica Not Detected (Not Detect.)
[2023-04-11 22:18] LABS: Calprotectin, Fecal 29 mcg/g
== END 2023-04-05 06:46 | disposition home or self-care (01) ==
LOC: HO.MANLNP 06:45
PROVIDERS: Visit Provider Physician Assistant
DX: A07.8 Other specified protozoal intestinal diseases (principal)
CPT/HCPCS: 83993; 87507

== ENCOUNTER 2023-05-16 07:45 | Outpatient (AMB) | payer OTHER, SELFPAY ==
--- NOTE | 2023-05-16 08:10 | A.OFFVIS_ITS ---
Intake Vital Signs 05/16/23 08:11 Height 5 ft 2 in Weight 140 lb BMI 25.6 BP 98/56 L Blood Pressure Location Lt brachial Position Sitting Pulse 66 Intake Visit Reasons: Diarrhea Intake Note: Patient new consult for diarrhea. Patient cc: abdominal bloating, diarrhea with some blood on and off, and denies any other GI issues. Etcher Machine Required: No Accompanied by: Self / Same As Patient Allergies No Known Allergies Allergy (Verified 05/16/23 08:08) HPI Diarrhea HPI Details 47-year-old female is here today for innikhil gonzalez consultation. Patient reports to have loose stools for the last few months. Patient had bit intestine for any viral component and it was negative. Patient reports that she was away in [place] for the weekend and when she came back she started with symptoms epigastric pain and postprandial moves stools. No matter what patient will be eating she has loose stools. Currently patient is using omeprazole on as needed basis. Epigastric pain has subsided. However patient reports that she will have the pain if she is eating spicy. Patient reports that her stools are soft, feels like they are sticky, not watery. Patient reports that she has not changed her diet. Patient reports occasional blood on the tissue when wiping. Despite having frequent bowel movements patient does not feel like she empties her bowels completely. Patient is feeling bloated and gassy. Patient denies any nausea or vomiting. Denies any dyspepsia, dysphagia her odynophagia. Patient denies any melena, unintentional weight loss or ribbon like stools. 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 Gender identity: Female Female Reproductive History Menstrual Age of Menarche: 14 Review of Systems Const Denies weight gain and Denies weight loss ENT Reports no additional complaints, Denies dysphagia and Denies odynophagia Card Reports no additional complaints Resp Reports no additional complaints GI Denies abdominal pain, Denies belching, Denies melena, Reports bloating, Denies change in bowel habits, Denies dysphagia, Denies excessive flatus, Denies dyspepsia, Reports heartburn, Denies diarrhea, Reports loose stools, Denies nausea, Denies odynophagia and Denies vomiting Reports no additional complaints Musc Reports no additional complaints Neuro Reports no additional complaints Psych Reports no additional complaints Endo Reports no additional complaints Physical Exam Const General: healthy appearing, no acute distress and well developed Nutritional Appearance: well nourished Orientation/consciousness: patient oriented x3 HEENT Head: Yes normal to inspection, Yes normocephalic and Yes atraumatic Face and sinus: Yes normal facial exam Mouth: Normal oral and palatal mucosa present Throat: Yes posterior oropharynx normal, Yes tonsils normal and Yes uvula midline Eyes General: appearance normal, both eyes and all related structures Neck Neck: Yes normal visual inspection, Yes full ROM and Yes trachea midline Thyroid: Thyroid normal Resp Effort & Inspection: normal respiratory effort, able to speak in complete sentences, no tracheal deviation and symmetric chest movement Auscultation: clear to auscultation bilaterally Cardio Rate: regular rate Heart sounds: S1 normal heart sound present and S2 normal heart sound present GI Inspection: Yes normal to inspection and No distended Palpation (GI): Soft to palpation, not firm, nontender and No hepatosplenomegaly present Auscultation: normal bowel sounds General: Yes no CVA tenderness Back/Spine/Pelvis Back: no CVA tenderness Skin General skin exam: elasticity normal, turgor normal and dry skin Neuro General: patient oriented x3 Psych Appearance: grossly normal Mental Status: mental status grossly normal Assessment & Plan Assessment & Plan (1) Irritable bowel syndrome with both constipation and diarrhea: Code(s): K58.2 - Mixed irritable bowel syndrome (2) Postprandial diarrhea: Code(s): K52.9 - Noninfective gastroenteritis and colitis, unspecified (3) Abdominal bloating: Code(s): R14.0 - Abdominal distension (gaseous) (4) GERD (gastroesophageal reflux disease): Code(s): K21.9 - Gastro-esophageal reflux disease without esophagitis Qualifiers: Esophagitis presence: esophagitis presence not specified Qualified Code(s): K21.9 - Gastro-esophageal reflux disease without esophagitis (5) Epigastric pain: Code(s): R10.13 - Epigastric pain Plan Liver enzymes and lipase were normal when blood work was ordered by PCP. Will send to rule out pancreatic insufficiency, H pylori. Patient will start taking Citrucel to help her bulk her stool and will take Senokot to help her eliminate her bowels better. Patient was also encouraged to increase fluid intake and activity to her move her bowel motility. Discussed with patient low FODMAP diet. List of food recommended as well as list of food to avoid given to patient. Patient reports epigastric discomfort, will check transglutaminase to rule out celiac. Will check vitamin-D, B12 and folate. I will see patient in 3 months. Patient is due to go for colorectal screening. Will discuss going for colonoscopy. If patient continues have epigastric pain and reflux we will send her for upper endoscopy as well. All this was discussed with patient. Patient is agreeable to plan of care and verbalizes understanding of instructions. She was given the opportunity to ask questions and all questions answered. Thank you for allowing me to participate in her care Orders: Orders Pancreatic Elastase-1 Today R10.9 - Unspecified abdominal pain Transglutaminase Ab IgG Today R10.9 - Unspecified abdominal pain Transglutaminase IgA Today R10.9 - Unspecified abdominal pain Vitamin D 25-OH (D2 and D3) Today E55.9 - Vitamin D deficiency, unspecified Vitamin B12 and Folate Today R19.7 - Diarrhea, unspecified H pylori Ag Stool Today K21.9 - Gastro-esophageal reflux disease without esophagitis Medications: New methylcellulose (laxative) (Citrucel) 500 mg PO DAILY 30 tabs 2RF K59.00 - Constipation, unspecified sennosides (Natural Senna Laxative) 17.2 mg (2 x 8.6 mg) PO BEDTIME 60 tabs 3RF constipation K59.00 - Constipation, unspecified Coding Level of Care Code New Pt Level 4 (08474) Diagnoses Irritable bowel syndrome with both constipation and diarrhea K58.2 Postprandial diarrhea K52.9 Abdominal bloating R14.0 Gastroesophageal reflux disease, unspecified whether esophagitis present K21.9 Esophagitis presence: esophagitis presence not specified Epigastric pain R10.13 Time Spent (min) 45 Comment 30 minutes spent with patient and additional 15 minutes spent reviewing her records.
[2023-05-16 08:11] VITALS: BP 98/56; PULSE 66; BMI 25.6
== END 2023-05-16 08:45 | disposition home or self-care (01) ==
PROVIDERS: PCP Internal Medicine; Visit Provider Nurse Practitioner Family
DX: K58.2 Mixed irritable bowel syndrome (principal); R14.0 Abdominal distension (gaseous); K21.9 Gastro-esophageal reflux disease without esophagitis; R10.13 Epigastric pain
CPT/HCPCS: 99204

== ENCOUNTER 2023-05-16 07:45 | Outpatient (REF) | payer OTHER, SELFPAY ==
[2023-05-16 11:06] LABS: Folate 11.5 ng/mL (> or = 4.0); Vitamin B12 817 pg/mL (200-900)
[2023-05-18 17:53] LABS: Transglutaminase Ab IgG 1.2 U/mL; Transglutaminase IgA <1.0 U/mL
[2023-05-19 16:47] LABS: Vitamin D 25-OH, D2 <4 ng/mL; Vitamin D 25-OH, D3 33 ng/mL; Vitamin D 25-OH, Total 33 ng/mL (30-100)
== END 2023-05-16 07:46 | disposition home or self-care (01) ==
LOC: HO.LAB 07:45
PROVIDERS: PCP Internal Medicine; Visit Provider Nurse Practitioner Family
DX: R10.9 Unspecified abdominal pain (principal); E55.9 Vitamin D deficiency, unspecified; K52.9 Noninfective gastroenteritis and colitis, unspecified; R14.0 Abdominal distension (gaseous); K21.9 Gastro-esophageal reflux disease without esophagitis; R10.13 Epigastric pain
CPT/HCPCS: 36415; 82306; 82607; 82746; 86364

== ENCOUNTER 2023-05-18 08:28 | Outpatient (REF) | payer OTHER, SELFPAY ==
[2023-05-26 02:19] LABS: Pancreatic Elastase-1 459 mcg/g
== END 2023-05-18 08:29 | disposition home or self-care (01) ==
LOC: HO.LNP 08:28
PROVIDERS: Visit Provider Nurse Practitioner Family
DX: R10.9 Unspecified abdominal pain (principal); K21.9 Gastro-esophageal reflux disease without esophagitis
CPT/HCPCS: 82656; 87338

== ENCOUNTER 2023-08-22 07:46 | Outpatient (AMB) | payer OTHER, SELFPAY ==
--- NOTE | 2023-08-22 07:48 | MHC.OFFVIS ---
Intake Vital Signs 08/22/23 08:03 Height 5 ft 2 in Weight 150 lb BMI 27.4 BP 114/67 Blood Pressure Location Lt brachial Position Sitting Pulse 77 Intake Visit Reasons: 3 month follow up Diarrhea Intake Note: Yudi presents in the office as a 3 month follow up diarrhea. CC: She states that things are getting better and she does not have any concerns at this time. Ammonia Solution Preparer Required: No Allergies No Known Allergies Allergy (Verified 08/22/23 08:04) HPI 3 month follow up Diarrhea HPI Details LAST VISIT: Irritable bowel syndrome with both constipation and diarrhea Postprandial diarrhea Abdominal bloating GERD (gastroesophageal reflux disease) Epigastric pain Plan Liver enzymes and lipase were normal when blood work was ordered by PCP. Will send to rule out pancreatic insufficiency, H pylori. Patient will start taking Citrucel to help her bulk her stool and will take Senokot to help her eliminate her bowels better. Patient was also encouraged to increase fluid intake and activity to her move her bowel motility. Discussed with patient low FODMAP diet. List of food recommended as well as list of food to avoid given to patient. Patient reports epigastric discomfort, will check transglutaminase to rule out celiac. Will check vitamin-D, B12 and folate. I will see patient in 3 months. Patient is due to go for colorectal screening. Will discuss going for colonoscopy. If patient continues have epigastric pain and reflux we will send her for upper endoscopy as well. All this was discussed with patient. Patient is agreeable to plan of care and verbalizes understanding of instructions. She was given the opportunity to ask questions and all questions answered. ? Thank you for allowing me to participate in her care Orders Orders Pancreatic Elastase-1 Today R10.9 Transglutaminase Ab IgG Today R10.9 Transglutaminase IgA Today R10.9 Vitamin D 25-OH (D2 and D3) Today E55.9 Vitamin B12 and Folate Today R19.7 H pylori Ag Stool Today K21.9 Medications New methylcellulose (laxative) (Citrucel) 500 mg PO DAILY 30 tabs 2RF K59.00 sennosides (Natural Senna Laxative) 17.2 mg (2 x 8.6 mg) PO BEDTIME 60 tabs 3RF constipation K59.00 TODAY'S VISIT: Patient is here today for follow-up and to discuss colonoscopy. Patient reports that she has been feeling better. Her symptoms of acid reflux are controlled. Patient reports that she is moving her bowels better now that she is taking senna. Denies any abdominal pain or discomfort. Denies melena, hematochezia, unintentional weight loss or ribbon like stools. Patient denies any dyspepsia dysphagia or odynophagia. Depending on what she eats patient might have postprandial abdominal bloating and occasional dyspepsia. 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 Gender identity: Female Female Reproductive History Menstrual Age of Menarche: 14 Review of Systems Const Denies weight gain and Denies weight loss ENT Reports no additional complaints, Denies dysphagia and Denies odynophagia Card Reports no additional complaints Resp Reports no additional complaints GI Denies abdominal pain, Denies belching, Denies melena, Reports bloating, Denies change in bowel habits, Denies dysphagia, Denies excessive flatus, Denies dyspepsia, Reports heartburn, Denies diarrhea, Denies loose stools, Denies nausea, Denies odynophagia and Denies vomiting Reports no additional complaints Musc Reports no additional complaints Neuro Reports no additional complaints Psych Reports no additional complaints Endo Reports no additional complaints Physical Exam Vital Signs: Last Vital Signs Pulse 77 08/22/23 08:03 BP 114/67 08/22/23 08:03 BMI result Body Mass Index 27.4 Const General: healthy appearing, no acute distress and well developed Nutritional Appearance: well nourished Orientation/consciousness: patient oriented x3 Resp Effort & Inspection: normal respiratory effort, able to speak in complete sentences, no tracheal deviation and symmetric chest movement Auscultation: clear to auscultation bilaterally Cardio Rate: regular rate GI Inspection: Yes normal to inspection and No distended Palpation (GI): Soft to palpation, not firm, nontender and No hepatosplenomegaly present Auscultation: normal bowel sounds General: Yes no CVA tenderness Back/Spine/Pelvis Back: no CVA tenderness Skin General skin exam: elasticity normal, turgor normal and dry skin Neuro General: patient oriented x3 Psych Appearance: grossly normal Mental Status: mental status grossly normal Speech and movement: Normal speech and movement present Results Reviewed Results Reviewed: Laboratory Tests 05/16/23 05/16/23 05/18/23 09:02 09:02 07:11 Vitamin B12 817 25-OH Vitamin D Total 33 Folate 11.5 Stool Pancreat Elastase 459 Tiss Transglutamin IgG 1.2 Tiss Transglutamin IgA <1.0 Assessment & Plan Assessment & Plan (1) Irritable bowel syndrome with both constipation and diarrhea: Code(s): K58.2 - Mixed irritable bowel syndrome (2) Postprandial diarrhea: Code(s): K52.9 - Noninfective gastroenteritis and colitis, unspecified (3) Abdominal bloating: Code(s): R14.0 - Abdominal distension (gaseous) (4) GERD (gastroesophageal reflux disease): Code(s): K21.9 - Gastro-esophageal reflux disease without esophagitis Qualifiers: Esophagitis presence: esophagitis presence not specified Qualified Code(s): K21.9 - Gastro-esophageal reflux disease without esophagitis (5) Epigastric pain: Code(s): R10.13 - Epigastric pain Plan Patient reports to be feeling better since the last time I have seen her. Patient reports that she changed her diet. Eating more fiber. Patient is moving her bowels better. Less postprandial abdominal bloating. Patient denies any dyspepsia, dysphagia or odynophagia. Denies melena, hematochezia, unintentional weight loss or ribbon like stools. Patient will continue avoiding dietary triggers and late night snacking. Staying upright for minimum 3 hours after meals discussed with patient. Patient denies any melena, hematochezia, unintentional weight loss or ribbon like stools. Patient will go for colonoscopy. Patient denies any issues with anesthesia in the past. No history of sleep apnea. Not on any anticoagulation medication. Patient denies any cardiac or respiratory symptoms. What to expect before during and after the procedure discussed with patient. The importance of clear liquid diet and good bowel prep day before procedure discussed with patient. Patient will follow-up in the office after the procedure, sooner on as needed basis. Patient is agreeable to this plan and verbalizes understanding of instructions. She was given the opportunity to ask questions and all questions answered. Thank you for allowing me participate in her care Medications: New bisacodyl (Dulcolax (bisacodyl)) take 4 tabs at noon the day before your colonoscopy 20 mg (4 x 5 mg) PO ONCE 1 day 4 tabs 0RF Z12.11 - Encounter for screening for malignant neoplasm of colon polyethylene glycol 3350 (Miralax) As directed by gastroenterology department at [facility] 238 grams PO ONCE 238 grams 0RF Z12.11 - Encounter for screening for malignant neoplasm of colon Refilled sennosides (Natural Senna Laxative) 17.2 mg (2 x 8.6 mg) PO BEDTIME 180 tabs 3RF constipation K59.00 - Constipation, unspecified Coding Level of Care Code Est Pt Level 4 (05372) Diagnoses Irritable bowel syndrome with both constipation and diarrhea K58.2 Postprandial diarrhea K52.9 Abdominal bloating R14.0 Gastroesophageal reflux disease, unspecified whether esophagitis present K21.9 Esophagitis presence: esophagitis presence not specified Epigastric pain R10.13 Time Spent (min) 35 Comment 20 minutes spent with patient and additional 15 minutes spent reviewing her records
[2023-08-22 08:03] VITALS: BP 114/67; PULSE 77; BMI 27.4
== END 2023-08-22 09:04 | disposition home or self-care (01) ==
PROVIDERS: PCP Internal Medicine; Visit Provider Nurse Practitioner Family
DX: K58.2 Mixed irritable bowel syndrome (principal); K21.9 Gastro-esophageal reflux disease without esophagitis
CPT/HCPCS: 99213

== ENCOUNTER → 2023-08-22 07:46 | Outpatient (BNVA) | payer OTHER, SELFPAY | PROVIDERS: PCP Internal Medicine; Visit Provider Nurse Practitioner Family ==

== ENCOUNTER 2023-09-05 13:54 | Outpatient (REF) | payer OTHER, SELFPAY | END 2023-09-05 13:55 | disposition home or self-care (01) | LOC: HO.MAMMO 13:54 | PROVIDERS: Absent Provider Obstetrics & Gynecology; PCP Internal Medicine; Visit Provider Surgery | DX: Z12.31 Encounter for screening mammogram for malignant neoplasm of breast (principal) | CPT/HCPCS: 77063; 77067 ==

== ENCOUNTER → 2023-09-05 13:55 | Outpatient (BNV) | payer OTHER, SELFPAY | PROVIDERS: Absent Provider Obstetrics & Gynecology; PCP Internal Medicine; Visit Provider Radiology Diagnostic Radiology | DX: Z12.31 Encounter for screening mammogram for malignant neoplasm of breast (principal) | CPT/HCPCS: 77063; 77067 ==

== ENCOUNTER 2023-09-08 14:31 | Outpatient (REF) | payer OTHER, SELFPAY ==
[2023-09-08 16:41] LABS: Thyroid Stimulating Hormone 0.56 uIU/mL (0.32-4.0)
[2023-09-09 08:35] LABS: Follicle Stimulating Hormone 7.4 mIU/mL; Lutenizing Hormone 5.5 mIU/mL; Prolactin 10.1 ng/mL
[2023-09-13 12:19] LABS: Testosterone, Total 21 ng/dL (2-45)
[2023-09-14 18:08] LABS: Estrogen 116 pg/mL
[2023-09-15 20:24] LABS: Progesterone 0.1 ng/mL
[2023-09-21 06:27] LABS: Estradiol Free 0.79 pg/mL; Estradiol, Ultrasensitive 43 pg/mL
== END 2023-09-08 14:32 | disposition home or self-care (01) ==
LOC: HO.LAB 14:31
PROVIDERS: PCP Internal Medicine; Visit Provider Physician Assistant
DX: N95.8 Other specified menopausal and perimenopausal disorders (principal)
CPT/HCPCS: 36415; 82670; 82672; 82681; 83001; 83002; 84144; 84146; 84403; 84436; 84443

== ENCOUNTER 2023-09-19 15:30 | Outpatient (AMB) | payer OTHER, SELFPAY ==
[2023-09-19 15:33] VITALS: BP 126/74; PULSE 71; BMI 29.0
--- NOTE | 2023-09-19 15:33 | A.OFFVIS_ITS ---
Intake Vital Signs 09/19/23 15:33 Height 5 ft 2 in Weight 158 lb 6 oz BMI 29.0 BP 126/74 Blood Pressure Location Lt brachial Position Sitting Pulse 71 Pulse Source Pulse Oximeter Intake Visit Reasons: 6 mth breast exam Intake Note: Pt presents to the office today for a 6 month breast exam. Pt states she is feeling well at this time and denies any concerns. Allergies No Known Allergies Allergy (Verified 09/19/23 15:35) HPI HPI Comments History of Present Illness Details 47-year-old female patient with a known strong family history of breast cancer including her mother and maternal aunt, determined to be high risk for breast cancer due to her family history with a Tyrer-Cuzick remaining lifetime risk of breast cancer of 25%. She has been followed by Dr. Griffin and Bk for this high risk and has previously undergone yearly breast MRI and mammograms. Genetic testing performed by Dr. Bourgeois is reported to be negative for any clinically significant genetic mutations or mutations of unknown significance. Her most recent mammogram dated 09/05/2023 revealed no mammographic evidence of malignancy ( BI-RADS 1 ). Follow-up mammogram is recommended in 1 year. Breast MRI on 08/25/2022?revealed a focus of enhancement in the 1 o'clock position of the right breast, 4 cm from the nipple, 4 mm in diameter with circumscribed margins felt to be new from the previous studies. The finding was felt to be low suspicion for malignancy and short-term follow-up recommended in 1 year. She is due for this breast MRI currently. The patient denies any palpable mass, skin change, nipple discharge, or enlarged lymph nodes in either breast. She is with 1 ab. Menarche at 14 years old, LMP on 09/11/2022. 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 Gender identity: Female Female Reproductive History Menstrual Age of Menarche: 14 Review of Systems Const All systems reviewed & are unremarkable except as noted in HPI and below Denies chills, Denies fever(s), Denies headache(s), Denies poor appetite and Denies weakness ENT Denies headache(s) Card Denies chest pain, Denies irregular heart rhythm, Denies palpitations and Denies dyspnea Resp Denies cough, Denies excessive phlegm production and Denies dyspnea GI Denies abdominal pain, Denies bloating, Denies change in bowel habits, Denies constipation, Denies heartburn, Denies diarrhea, Denies nausea and Denies vomiting Denies urinary frequency Musc Denies back pain, Denies muscle weakness and Denies numbness Skin/Breast Denies changing lesions and Denies unusual bruising Neuro Denies headache(s), Denies numbness, Denies paresthesias and Denies weakness Psych Denies anxiety and Denies depression Endo Denies palpitations Rich/Lymph Denies lymphadenopathy Physical Exam Const General: cooperative and no acute distress Nutritional Appearance: well nourished Orientation/consciousness: patient oriented x3 Limitations: no limitations HEENT Head: Yes normocephalic and Yes atraumatic Ears: hearing grossly normal bilaterally Chest Other: Left breast: No skin change, no nipple retraction, no nipple discharge, no palpable mass, no enlarged lymph nodes. Right breast: No skin change, no nipple retraction, no nipple discharge, no palpable mass, no enlarged lymph nodes Resp Effort & Inspection: normal respiratory effort, no audible wheezes, no cough and no respiratory distress Cardio Jugular venous distension: no JVD GI Inspection: Yes normal to inspection Skin Other: Warm, dry, no rash Neuro General: patient oriented x3 Extrem General: Yes no clubbing, cyanosis or edema Assessment & Plan Assessment & Plan (1) At high risk for breast cancer: Code(s): Z91.89 - Other specified personal risk factors, not elsewhere classified (2) Family history of breast cancer: Code(s): Z80.3 - Family history of malignant neoplasm of breast Plan 47-year-old female patient with a strong family history of breast cancer determined to be at high risk for breast cancer with a Tyrer-Cuzick remaining lifetime risk of breast cancer of 25%. Her most recent breast MRI 1 year ago revealed a low suspicion findings and repeat MRI was recommended in 1 year. She is now due for this MRI. This will be scheduled as soon as possible. Her most recent mammogram dated 09/05/2023 revealed no mammographic evidence of malignancy in either breast (BI-RADS 1). Examination today revealed no suspicious findings in either breast. I recommended follow-up examination in 6 months. She should continue monthly self examinations and call for any new concerns. Coding Level of Care Code Est Pt Level 3 (43865) Diagnoses At high risk for breast cancer Z91.89 Family history of breast cancer Z80.3
== END 2023-09-19 15:51 | disposition home or self-care (01) ==
PROVIDERS: PCP Internal Medicine; Visit Provider Surgery
DX: Z91.89 Other specified personal risk factors, not elsewhere classified (principal); Z80.3 Family history of malignant neoplasm of breast
CPT/HCPCS: 99213

== ENCOUNTER → 2023-09-19 15:30 | Outpatient (BNVA) | payer OTHER, SELFPAY | PROVIDERS: PCP Internal Medicine; Visit Provider Surgery ==

== ENCOUNTER 2023-10-19 15:26 | Outpatient (REF) | payer OTHER, SELFPAY ==
--- NOTE | ~2023-10-19 | MR_ITS ---
EXAMINATION: MR BREAST WITHOUT AND WITH CONTRAST, BILATERAL CLINICAL INFORMATION: Z91.89 - Other specified personal risk factors, not elsewhere classified COMPARISON: MRI 08/25/2022, 09/03/2021, 01/28/2021 TECHNIQUE: Imaging was performed with a dedicated breast coil. Prior to the administration of contrast, bilateral axial T1 and bilateral axial T2 weighted sequences were obtained. After the uneventful administration of?7 mL of Gadavist, dynamic contrast-enhanced VIBRANT series through the breasts in the axial plane were performed. Subtracted images were performed and reviewed. A delayed sagittal sequence through both breasts was acquired. Additionally, CAD post-processing, including maximum intensity projections, 3-D reconstructions and kinetic analysis, were performed an independent workstation and reviewed by the interpreting radiologist is a portion of this exam. FINDINGS: The patient's fibroglandular tissue demonstrates moderate background enhancement. LEFT BREAST: There are numerous scattered areas of nonmass enhancement throughout the left breast which are most consistent with background parenchymal enhancement. These overall limits exam sensitivity. No definite suspicious nonmass or mass enhancement. Review of the T2-weighted images demonstrates a few subcentimeter high signal intensity structures consistent with cysts. Review of the kinetic images demonstrates no additional suspicious findings. RIGHT BREAST: In the 1:00 position, 4 cm from the nipple, there is a heterogeneously enhancing mass with mildly indistinct margins measuring 7 mm which is increased in size compared to previous exams (image 49, series 103). No T2 correlate. Finding demonstrates mostly progressive or type I enhancement. Consider MR directed second look ultrasound for further evaluation. Similar to the contralateral side, there are scattered patchy areas of nonmass enhancement which appears similar to previous exams. No other suspicious nonmass or mass enhancement. Review of the T2-weighted images demonstrates a few subcentimeter high signal intensity structures consistent with cysts. Review of the kinetic images demonstrates no additional suspicious findings. There is no suspicious internal mammary chain or axillary adenopathy. Limited views of the chest and abdomen are unremarkable. MR/MR breast BI wo/w con IMPRESSION: 1. Indeterminate right breast mass, 1:00. MR directed second look ultrasound recommended. 2. No convincing MRI evidence of malignancy within the left breast within the limits of the exam. ASSESSMENT: LEFT BREAST: BI-RADS 1-Negative RIGHT BREAST: BI-RADS 4 - Suspicious abnormality - Biopsy should be considered. RECOMMENDATIONS: If this right breast finding cannot be clarified further with ultrasound, MRI guided biopsy will be required for further evaluation. Recommendation give to Osvaldo Barajas RN at 10:10 am.
[2023-10-19] MEDS: gadobutroL 7.5 ML VIAL IVPUSH (16:34)
== END 2023-10-19 15:27 | disposition home or self-care (01) ==
LOC: HO.MRI 15:26
PROVIDERS: PCP Internal Medicine; Visit Provider Surgery
DX: Z91.89 Other specified personal risk factors, not elsewhere classified (principal); Z80.3 Family history of malignant neoplasm of breast
CPT/HCPCS: 77049; A9585

== ENCOUNTER 2023-11-03 09:09 | Outpatient (REF) | payer OTHER, SELFPAY ==
--- NOTE | ~2023-11-03 | US_ITS ---
EXAMINATION: US DIAGNOSTIC ULTRASOUND BREAST, RIGHT CLINICAL INFORMATION: Follow-up for enhancing mass on MRI 10/19/2023, right breast 1:00 axis anterior one third measuring approximately 6-7 mm in diameter with plateau-type kinetics. COMPARISON: MRI 10/19/2023, 08/25/2022, and 09/03/2021. TECHNIQUE: Ultrasound of the breast is performed with real-time red scale imaging and color Doppler. Attention was given to the 1:00 axis and upper inner quadrant of the right breast in the region of MRI concern. FINDINGS: In review of the recent MRI, the enhancing oval mass at the 1:00 axis, anterior one third seems to demonstrate a prominent fatty hilum, suggesting a lymph node. Real-time red scale ultrasound imaging of the right breast demonstrates an oval hypoechoic mass in the 1:00 axis of the right breast, 2 cm from the nipple, measuring 5 x 4 x 2 cm, with fatty hilum, and hilar flow on color Doppler imaging. This finding is consistent with a intramammary lymph node, and is probably benign. This correlates well with the finding on MRI. No additional finding in the upper inner right breast to account for the MRI finding. Results are discussed with the patient at time of visit. US/US breast RT limited mamm only IMPRESSION: Probable intramammary lymph node right breast 1:00 axis, 2 cm from the nipple, correlating well with the enhancing nodule on recent MRI with plateau kinetics. Fatty hilum seen both on the MRI and the ultrasound. This is probably benign, and six-month interval follow-up targeted right breast ultrasound recommended to ensure stability. ASSESSMENT: BI-RADS 3 - Probably benign finding(s) - 6 month follow-up suggested RECOMMENDATION: 6 Month F/U This patient's information was entered into a reminder system with a target due date for their next mammogram.
== END 2023-11-03 09:10 | disposition home or self-care (01) ==
LOC: HO.MAMMO 09:09
PROVIDERS: PCP Internal Medicine; Visit Provider Surgery
DX: N63.12 Unspecified lump in the right breast, upper inner quadrant (principal); Z91.89 Other specified personal risk factors, not elsewhere classified; Z80.3 Family history of malignant neoplasm of breast
CPT/HCPCS: 76642

== ENCOUNTER → 2023-11-03 09:30 | Outpatient (BNV) | payer OTHER, SELFPAY | PROVIDERS: PCP Internal Medicine; Visit Provider Radiology Diagnostic Radiology | DX: N63.12 Unspecified lump in the right breast, upper inner quadrant (principal) | CPT/HCPCS: 76642 ==

== ENCOUNTER 2023-11-16 13:09 | Outpatient (REF) | payer OTHER, SELFPAY ==
--- NOTE | ~2023-11-16 | FL_ITS ---
Left hip arthrogram Indications: Left hip pain. Intra-articular gadolinium injection is needed prior to MRI. Procedure: Risks and benefits and possible complications were discussed with the patient and the consent form was signed. The patient was placed hip on the fluoroscopy table. The left hip was prepped and draped in normal sterile fashion. 1% buffered lidocaine was used for anesthesia. A 22-gauge spinal needle was used to access the hip joint. Intra-articular position of the needle within the hip joint was verified using 3 cc of Omnipaque 300. A total of 10 mL of gadolinium/saline (1:200) contrast mixture was then injected into the hip joint. The needle was then removed and a Band-Aid was applied to the injection site. The patient tolerated the procedure well and was sent for to MRI. There were no immediate complications. FL/FL arthrogram hip LT Impression: Fluoroscopic left hip arthrogram The procedure was performed by Ty Reeves PA-C, and directly supervised by Dr. Garza
--- NOTE | ~2023-11-16 | MR_ITS ---
EXAMINATION: MR HIP WITH CONTRAST, LEFT CLINICAL INFORMATION: Pain labral tear COMPARISON: None available. TECHNIQUE: MRI of the left hip was performed after the intra-articular administration of a dilute gadolinium-containing solution on a high-field scanner. FINDINGS: Bone/cartilage: Articular cartilage and marrow normal no arthrosis. No cystic change or bony excrescence at the femoral head neck junction. Alpha angle 42 degrees Labrum Muscles/tendons: Minimal heterogeneity of the distal gluteus medius and minimus compatible tendinosis. No discrete tear. Bursa: Normal. Muscles/tendons: Normal. Neurovascular structures: Normal. Lymph nodes: Normal. Subcutaneous soft tissues: Normal. MR/MR hip LT w con IMPRESSION: 1. Labrum intact. 2. Mild tendinosis of the gluteus medius and minimus.
[2023-11-16] MEDS: gadobutroL 2 ML VIAL IVPUSH (15:36)
== END 2023-11-16 13:10 | disposition home or self-care (01) ==
LOC: HO.XRAY 13:09
PROVIDERS: PCP Internal Medicine; Visit Provider Physician Assistant
DX: M25.552 Pain in left hip (principal)
CPT/HCPCS: 27093; 73525; 73722; A9585

== ENCOUNTER → 2023-11-16 13:50 | Outpatient (BNV) | payer OTHER, SELFPAY | PROVIDERS: PCP Internal Medicine; Visit Provider Physician Assistant Surgical | DX: M25.552 Pain in left hip (principal) | CPT/HCPCS: 27093; 73525 ==

== ENCOUNTER 2023-11-20 13:43 | Outpatient (AMB) | payer OTHER, SELFPAY ==
--- NOTE | 2023-11-20 13:53 | A.OFFVIS_ITS ---
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 No complaints. Last Pap/HPV was ascus/HPV negative, colpo/biopsy/ECC were negative. The patient had PALAK 3 in 01/19 status post LEEP with negative margins Last Mammogram was in 09/23 was BI-RADS 1 Breast MRI in 11/21 right BI-RADS 1, left BI-RADS 4 recommended ultrasound which showed BI-RADS 3, recommended six-month follow-up., the patient is under the care of Dr. 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 Gender identity: Female Female Reproductive History Menstrual Age of Menarche: 14 Duration of menses: 6-7 days Date of last menstrual period: 11/01/23 Total pregnancies: 1 Number of Living Children: 0 Date of last pap smear: 10/03/22 ([place]) History of abnormal pap smear: Yes (01/19 hgsil +hpv 03/21 colpo palak 3 03/21 leep palak 3 12/20 colpo) Date of Mammogram: 09/05/23 Review of Systems Const All systems reviewed & are unremarkable except as noted in HPI and below Card Reports as per HPI Resp Reports as per HPI GI Reports as per HPI and Reports no additional complaints Reports as per HPI Physical Exam Vital Signs: Last Vital Signs BP 100/64 11/20/23 13:55 BMI result Body Mass Index 27.1 Const General: cooperative, healthy appearing and comfortable Chest Chest palpation & inspection: normal inspection of the chest and normal palpation of entire chest wall Breast/axilla inspection: normal inspection of the breasts and normal inspection of the axillae Breast/axilla palpation: normal palpation of the breasts, normal palpation of the axillae and no axillary lymphadenopathy Resp Effort & Inspection: normal respiratory effort Auscultation: clear to auscultation bilaterally Percussion: percussion normal Cardio Palpation: normal PMI Rate: regular rate Rhythm: regular rhythm Heart sounds: no murmurs and no rubs Peripheral pulses: Peripheral pulses 2+ throughout GI Inspection: Yes normal to inspection Palpation (GI): Soft to palpation, nontender, no guarding, not rigid and No hepatosplenomegaly present Percussion: Yes normal to percussion Auscultation: normal bowel sounds Rectal Exam - Female: deferred General: Yes bladder normal to palpation External Female Exam: No lesion Speculum Exam - Vagina: normal appearance of the vagina, normal palpation, normal vaginal discharge and not erythematous Speculum Exam - Cervix: normal appearance of the cervix and normal palpation Bimanual exam- vagina & uterus: normal bimanual exam, normal palpation, uterine size normal, bladder normal to palpation, consistency normal and normal palpation Bimanual Exam- Adnexa, other: normal adnexae, no masses and no tenderness Assessment & Plan Assessment & Plan (1) Well woman exam: Comment: History of PALAK 3 in 01/19 status post LEEP cone negative margins Code(s): Z01.419 - Encounter for gynecological examination (general) (routine) without abnormal findings Category: Medical Plan: Cotesting done. Instructions given the patient to schedule a six-month Mammogram /ultrasound per recommendation and to follow up with Dr. Fraga for her high-risk breast cancer status. Counseled the patient about the recommended dietary allowance of 1000 mg of Calcium & 600 IU of vitamin D. The patient was instructed to perform monthly self-breast exams and to schedule an annual exam in a year; The patient has an appointment with GI for screening colonoscopy All questions answered and the patient verbalized understanding. Instructed the patient to schedule annual exam in a year
[2023-11-20 13:55] VITALS: BP 100/64; BMI 27.1
== END 2023-11-20 15:17 | disposition home or self-care (01) ==
LOC: HO.HWS 13:43
PROVIDERS: PCP Internal Medicine; Visit Provider Obstetrics & Gynecology
DX: Z01.419 Encounter for gynecological examination (general) (routine) without abnormal findings (principal)
CPT/HCPCS: 99396

== ENCOUNTER 2023-11-20 13:43 | Outpatient (REF) | payer OTHER, SELFPAY ==
[2023-11-23 22:43] LABS: HPV 16 RNA DETECTED (NOT DETECTED); HPV mRNA E6/E7 rflx Detected (Not Detected)
== END 2023-11-20 13:44 | disposition home or self-care (01) ==
LOC: HO.LNP 13:43
PROVIDERS: PCP Internal Medicine; Visit Provider Obstetrics & Gynecology
DX: Z01.419 Encounter for gynecological examination (general) (routine) without abnormal findings (principal); Z11.51 Encounter for screening for human papillomavirus (HPV); D06.9 Carcinoma in situ of cervix, unspecified
CPT/HCPCS: 87624; 87625; 88142

== ENCOUNTER 2023-12-18 14:38 | Outpatient (AMB) | payer OTHER, SELFPAY ==
--- NOTE | 2023-12-18 14:39 | MHC.OFFVIS ---
Vital Signs 12/18/23 14:45 Height 5 ft 2 in Weight 147 lb 11.355 oz BMI 27.0 BP 120/70 Intake Visit Reasons: Colposcopy Health Commissioner Required: No Information Interpreted: non-clinical & clinical Bone Density Technician: Bone Density Technician Present (Diane SINGH) Accompanied by: Self / Same As Patient Allergies No Known Allergies Allergy (Verified 12/18/23 14:46) Is last menstrual period known: Yes Last menstrual period: 11/28/23 HPI Comments Details: Presenting for colposcopy Pap smear showed ascus/HPV E6/E7 positive, HPV 16/18/45 negative 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 We thoroughly discussed the procedure itself, including its details, alternatives, and all associated risks. This included but not limited to the following complications such as bleeding, infection, and injury to the vagina, bladder, and vessels, as well as the potential need for transfusion with all its associated risks. Subsequently, the patient sign the consent. Pap smear result: Ascus/HPV E6/E7 positive /HPV 16/18/45 negative Urine test in office = Negative Procedure: During the procedure, the following steps were performed: A speculum was inserted, and acetic acid was applied. Colposcopy was conducted, allowing visualization of the transformation zone. Acetowhite lesions were identified at the 4+7+11+12+3 o'clock position. Cervical biopsies were obtained from the 4+7+11+12+3 o'clock position, followed by an endocervical curettage (ECC). Vaginoscopy of the upper vagina revealed no evidence of aceto-white lesions. Hemostasis was achieved using Monsel solution, and the patient tolerated the procedure well. Post-Procedure Instructions: The patient was advised to promptly contact the office or the after hours answering service or go to the emergency room if experiencing a temperature exceeding 100.4?F, abdominal pain, nausea/vomiting, or bleeding. Additionally, the patient was instructed to abstain from vaginal intercourse and bathtub use. The patient confirmed understanding of these instructions. Discharge Instructions: The patient was instructed to schedule a follow-up appointment in 2 weeks for further evaluation and management. Please note that this note was generated using a voice recognition program, and errors may have occurred during embedded developer. 80873-Wpasefzzs of cervix including upper vagina with biopsy and ECC Procedure code (CPT) selection complete Results AMB Test Urine AMB Test Urine Negative Last Edit by Diane Kauffman CMA on 12/18/23 14:47 Results Reviewed Results Reviewed: Laboratory Last Values Tst Clinic Negative 12/18/23 14:47 Assessment & Plan Assessment & Plan (1) ASCUS with positive high risk HPV cervical: Code(s): R87.610 - Atypical squamous cells of undetermined significance on cytologic smear of cervix (ASC-US); R87.810 - Cervical high risk human papillomavirus (HPV) DNA test positive Category: Medical Plan: Colposcopy done, see procedure Orders: Orders AMB HCG Urine Test Today Z32.02 - Encounter for test, result negative AMB Colposcopy Today R87.610 - Atypical squamous cells of undetermined significance on cytologic smear of cervix (ASC-US), R87.810 - Cervical high risk human papillomavirus (HPV) DNA test positive Coding Level of Care Code Procedure Only Diagnoses ASCUS with positive high risk HPV cervical R87.610; R87.810 CPT Codes Colposcopy - CPT: 27947-Xeromzrrn of cervix including upper vagina with biopsy and ECC ([id number])
[2023-12-18 14:45] VITALS: BP 120/70; BMI 27.0
== END 2023-12-18 15:10 | disposition home or self-care (01) ==
LOC: HO.HWS 14:38
PROVIDERS: PCP Internal Medicine; Visit Provider Obstetrics & Gynecology
DX: R87.610 Atypical squamous cells of undetermined significance on cytologic smear of cervix (ASC-US) (principal); R87.810 Cervical high risk human papillomavirus (HPV) DNA test positive; Z32.02 Encounter for pregnancy test, result negative
CPT/HCPCS: 57454

== ENCOUNTER 2023-12-18 14:38 | Outpatient (REF) | payer OTHER, SELFPAY | END 2023-12-18 14:39 | disposition home or self-care (01) | LOC: HO.LNP 14:38 | PROVIDERS: PCP Internal Medicine; Visit Provider Obstetrics & Gynecology | DX: R87.610 Atypical squamous cells of undetermined significance on cytologic smear of cervix (ASC-US) (principal); R87.810 Cervical high risk human papillomavirus (HPV) DNA test positive | CPT/HCPCS: 57454; 81025; 88305; 88342; 88360 ==

== ENCOUNTER 2024-01-15 10:16 | Day surgery (SDC) | payer OTHER, SELFPAY ==
[2024-01-11 11:34] VITALS: BMI 27.4
[2024-01-15 10:36] VITALS: BMI 24.8
[2024-01-15 10:44] VITALS: BP 105/53; PULSE 73; RESP 16; TEMP 37.1; O2SAT 99
[2024-01-15 10:57] LABS: UPreg QC Valid YES; Urine Pregnancy NEGATIVE (NEGATIVE)
[2024-01-15] MEDS: Lactated Ringers 1,000 ML 50 ML IVCONT (11:01)
--- NOTE | 2024-01-15 11:26 | P.CONAN_ITS ---
[facility] Active Problems Active Problems: All Active Problems ASCUS with positive high risk HPV cervical (Acute) ASCUS of cervix with negative high risk HPV (Acute) Family history of breast cancer (Acute) Family planning advice (Acute) Abnormal uterine bleeding (AUB) (Acute) Encounter for IUD removal (Acute) MAITE III (cervical intraepithelial neoplasia grade III) with severe dysplasia (Acute) HGSIL (high grade squamous intraepithelial lesion) on Pap smear of cervix (Acute) Encounter for IUD removal and reinsertion (Acute) Contraceptive management (Acute) IUD check up (Acute) Candidal vulvovaginitis (Acute) At high risk for breast cancer (Acute) Well woman exam (Acute) Past Medical History Medical History (Updated 01/11/24 @ 11:35 by Tiffanie Denny RN) GERD (gastroesophageal reflux disease) Asthma Family History Family History Mother Breast CA, Onset Age: 50 Father Diabetes Maternal Aunt Non-Hodgkin lymphoma Breast CA Paternal Uncle Lung cancer Family history of problems with anesthesia: No Surgical History Surgical History H/O LEEP History of Problems with Anesthesia: No Social History Social History Household Members: None Housing: Apartment Alcohol intake: current Alcohol intake frequency: holidays/special occasions only Patient Tobacco Use Status: Former Tobacco user Tobacco use type: Cigarette Use of substances other than those prescribed or required for medical reasons: No Are you DNR?: No Advance Directives: No Advance Directives Information Provided: Yes service: No Current occupational status: employed 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 Gender identity: Female Meds Allergies Allergy/AdvReac Type Severity Reaction Status Date / Time No Known Allergies Allergy Verified 12/18/23 14:46 Active Medications: Current Medications Lactated Ringer's (Lr) 1,000 mls @ 50 mls/hr IVCONT .Q20H HALI Last Admin: 01/15/24 11:01 Dose: 50 mls/hr Home Medications ?Medication ?Instructions ?Recorded ?Confirmed ?Last Taken ?Type montelukast 10 mg tablet 10 mg PO QPM 01/20/21 01/11/24 Unknown History Benadryl Allergy 25 mg PO DAILY PRN Allergy Symptoms 02/05/21 01/11/24 Unknown History albuterol sulfate 90 mcg/actuation 2 puff inhalation Q6H PRN 01/24/22 01/11/24 Unknown History aerosol inhaler Shortness Of Breath Or Wheezing escitalopram oxalate 10 mg tablet 10 mg PO DAILY 05/16/23 01/11/24 Unknown History omeprazole 20 mg capsule,delayed 20 mg PO DAILY 05/16/23 01/11/24 Unknown History release Exam Height,Weight and Vital Signs: Height 5 ft 2 in Weight 61.462 kg Last Vital Signs Temp 98.7 F 01/15/24 10:44 Pulse 73 01/15/24 10:44 Resp 16 01/15/24 10:44 BP 105/53 L 01/15/24 10:44 Pulse Ox 99 01/15/24 10:44 O2 Del Method Room Air 01/15/24 10:44 Pertinent Lab Results Pertinent Lab Results: Laboratory Tests 01/15/24 10:30 Urine Test NEGATIVE Airway Mallampati Class: II TM Dist: >3cm Neck ROM: Full Heart: rrr Lungs: cta Assessment and Plan Assessment Anesthesia Assessment: Anesthesia Plan Discussed and Chart Reviewed Final Anesthetic Review Family History of Problems with Anesthesia: No History of Problems with Anesthesia: No NPO: Yes ASA Class: II Final Preanesthetic Review: No Changes in Pt Med Stat, Meds/Allgs Chart Reviewed and Consent Obtained/Reviewed Patient Risk: Low Procedure Risk: Low Anesthetic Plan Anesthetic Plan: MAC: Disposition: Standard PACU
--- NOTE | 2024-01-15 12:17 | MHC.SHP ---
Pre-Procedural Eval Section A - 24 Hr Update-Section A only Date of Service: 01/15/24 The patient is an INPATIENT: No The patient has been examined within 24 hours of the surgical procedure. The History & Physical has been completed within 30 days and I have reviewed it.: No Section B - Complete if H&P > 30 days Chief Complaint: Colon cancer screening, diarrhea Relevant Family History (Specify if Yes): No Relevant Social History: Tobacco Use (former smoker) Present Medications: see Short Stay Collaborative assessment Medical History: Significant History (GERD, asthma) History of Previous Operations: Relevant previous surgery/procedure and date(s) (H/O LEEP) Allergies: Allergies Allergy/AdvReac Type Severity Reaction Status Date / Time No Known Allergies Allergy Verified 12/18/23 14:46 Review of Systems Sugical H&P ROS: Negative: Constitution, Cardiovascular, Respiratory and Gastrointestinal Exam Surgical H&P Exam: Normal: Heart, Normal: Lungs, Normal: Extremities and Normal: Abdomen Plan Diagnosis/Plan: Unchanged I have reviewed the history and physical and performed a pertinent physical examination on my patient. No changes have occurred unless specified. Time Spent With Patient Time: Total time managing care of this patient today ____ minutes.
[2024-01-15 12:55] VITALS: BP 89/48; PULSE 73; RESP 16; TEMP 36.2; O2SAT 100
--- NOTE | 2024-01-15 12:59 | HO.OPN-COLON ---
Colonoscopy Operative Note Operative Note Date of Service: 01/15/24 Narrative: COLONOSCOPY TILL CECUM WITH BIOPSIES Pre-op diagnosis: Colon cancer screening, chronic diarrhea. Post-op diagnosis:? Mild melanosis coli, Diverticulosis, hemorrhoids Endoscopist:? Marianna Franklin MD Anesthesia:?MAC Consent: Indications for the procedure and potential complications of bleeding, perforation, reaction to medications and missed diagnosis were discussed with the patient and informed consent was obtained. Instrument: Olympus PCF H 190 L variable stiffness pediatric colonoscope Monitoring: Vital signs and clinical assessment, intermittent blood pressure monitoring, continuous EKG monitoring, Pulse oximetry and Carbon Dioxide monitoring were done throughout the procedure. Please see anesthesia flowsheet. Colon withdrawl time was 11 minutes. Procedure: The patient was placed in the left lateral decubitis position and pre-procedure medications were administered. After a digital rectal examination of the ano-rectum, the video colonoscope was inserted into the rectum and advanced through the colon to the cecum. The colonoscope was slowly withdrawn in a retrograde panoramic fashion and the colon mucosa was carefully examined including a retroflexed view of the rectum. Findings and interventions are described below. Procedure Difficulty: without difficulty Findings: Terminal Ileum: Not evaluated Cecum: Mild melanosis coli noted throughout the entire colon Ascending Colon: Mild melanosis coli noted throughout the entire colon Transverse Colon: Mild melanosis coli noted throughout the entire colon Descending Colon: Mild melanosis coli noted throughout the entire colon Sigmoid Colon: Mild melanosis coli noted throughout the entire colon and moderate diverticulosis Rectum: Normal Ano-rectum: Moderate internal hemorrhoids Colon preparation: Excellent after some irrigation. [place] Bowel Preparation Scale Right colon; 3 Transverse colon: 3 Left colon; 3 (0 = Unprepared colon segment with mucosa not seen due to solid stool that cannot be cleared. 1 = Portion of mucosa of the colon segment seen, but other areas of the colon segment not well seen due to staining, residual stool and/or opaque liquid. 2 = Minor amount of residual staining, small fragments of stool and/or opaque liquid, but mucosa of colon segment seen well. 3 = Entire mucosa of colon segment seen well with no residual staining, small fragments of stool or opaque liquid) Impression and Post Procedure Diagnosis: Colonoscopy Findings: No polyps were detected Mild melanosis coli noted throughout the entire colon. Random biopsies were obtained in the right and left colon to check for microscopic colitis Moderate diverticulosis seen in the sigmoid colon Small hemorrhoids on retroflexed exam. Plan: Pt has a FU appointment on 02/09/24 with Rupali Richards NP Repeat Colonoscopy in 10 years if colon biopsies are normal. Above findings were reviewed with the patient and relevant handouts were given and the discharge area. BIOSPSIES SHOWED: A. Colon, random right, biopsy: Colonic mucosa with melanosis coli; negative for active, chronic or microscopic colitis. B. Colon, random left, biopsy: Colonic mucosa with melanosis coli; negative for active, chronic or microscopic colitis
[2024-01-15 13:10] VITALS: BP 94/45; PULSE 70; RESP 14; O2SAT 100
[2024-01-15 13:25] VITALS: BP 113/62; PULSE 74; RESP 15; TEMP 36.1; O2SAT 100
== END 2024-01-15 13:41 | disposition home or self-care (01) ==
PROVIDERS: Anesthesiology; PCP Internal Medicine; Visit Provider Internal Medicine Gastroenterology
PROC: 0DJD8ZZ Inspection of Lower Intestinal Tract, Via Natural or Artificial Opening Endoscopic (ICD-10-PCS; CPT 45378; principal; 2024-01-15 11:30)
DX: Z12.11 Encounter for screening for malignant neoplasm of colon (principal); K57.30 Diverticulosis of large intestine without perforation or abscess without bleeding; K64.8 Other hemorrhoids; K58.2 Mixed irritable bowel syndrome; J45.909 Unspecified asthma, uncomplicated
CPT/HCPCS: 45380; 81025; 88305; J2704

== ENCOUNTER → 2024-01-15 10:16 | Outpatient (BNV) | payer OTHER, SELFPAY | PROVIDERS: PCP Internal Medicine; Visit Provider Internal Medicine Gastroenterology | DX: Z12.11 Encounter for screening for malignant neoplasm of colon (principal); K52.9 Noninfective gastroenteritis and colitis, unspecified; K63.89 Other specified diseases of intestine; K57.30 Diverticulosis of large intestine without perforation or abscess without bleeding; K64.8 Other hemorrhoids | CPT/HCPCS: 45380 ==

== ENCOUNTER 2024-01-24 11:36 | Outpatient (AMB) | payer OTHER, SELFPAY ==
--- NOTE | 2024-01-24 11:50 | A.OFFVIS_ITS ---
Intake Visit Reasons: Colposcopy Allergies No Known Allergies Allergy (Verified 12/18/23 14:46) HPI Comments Details: Presenting post colpo for follow-up. The patient is doing well with no complaints. The pathology showed the following: A. Endocervix, curettage: Scant benign endocervical glandular epithelium and fragments of benign lower uterine segment. B. Cervix, 3:00, biopsy: Squamous and endocervical glandular mucosa with marked inflammation, and atypical epithelium bordering on mild dysplasia/low-grade squamous intraepithelial lesion; no evidence of high grade dysplasia. C. Cervix, 4:00, biopsy: Squamous and endocervical glandular mucosa with marked inflammation and reactive changes; negative for dysplasia. D. Cervix, 7:00, biopsy: Squamous and endocervical glandular mucosa with marked inflammation and reactive changes; negative for dysplasia. E. Cervix, 11:00, biopsy: Squamous and endocervical glandular mucosa with marked inflammation and reactive changes; negative for dysplasia. F. Cervix, 12, biopsy: Squamous and endocervical glandular mucosa with marked inflammation and reactive changes; negative for dysplasia. Comment: The rare atypical cells in the patient's previous Pap test ([id number]) have some similarities to the atypical cells in the current biops [facility] Medical History (Updated 01/24/24 @ 12:02 by Eb Griffin MD) GERD (gastroesophageal reflux disease) Asthma Surgical History (Updated 01/24/24 @ 12:02 by Eb Griffin MD) H/O LEEP Family History Mother Breast CA, Onset Age: 50 Father Diabetes Maternal Aunt Non-Hodgkin lymphoma Breast CA Paternal Uncle Lung cancer Social History Household Members: None Housing: Apartment Alcohol intake: current Alcohol intake frequency: holidays/special occasions only Patient Tobacco Use Status: Former Tobacco user Tobacco use type: Cigarette service: No Current occupational status: employed 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 Discussed with the patient the sensitivity specificity, positive and negative predictive value in detecting cervical cancer in addition discussed the regression, persistence and progression rates. Recommended co-testing in 12 months, if cytology and or HPV are abnormal will proceed was colposcopy biopsy and endocervical curettage, if lesions gets worse or stays persistent for 2 years will proceed with loop electric excision procedure. Instructions given to the patient to schedule a co test appointment in 1 year. All questions answered the patient verbalized understanding. Coding Level of Care Code Est Pt Level 3 (99125) Diagnoses Dysplasia of cervix, low grade (MAITE 1) N87.0
== END 2024-01-24 12:21 | disposition home or self-care (01) ==
PROVIDERS: PCP Internal Medicine; Visit Provider Obstetrics & Gynecology
DX: N87.0 Mild cervical dysplasia (principal)
CPT/HCPCS: 99213

== ENCOUNTER → 2024-01-24 11:36 | Outpatient (BNVA) | payer OTHER, SELFPAY | PROVIDERS: PCP Internal Medicine; Visit Provider Obstetrics & Gynecology ==

== ENCOUNTER 2024-02-09 09:43 | Outpatient (AMB) | payer OTHER, SELFPAY ==
--- NOTE | 2024-02-09 09:46 | A.OFFVIS_ITS ---
Vital Signs 02/09/24 10:47 Height 5 ft 2 in Weight 135 lb BMI 24.7 BP 97/45 L Blood Pressure Location Lt brachial Position Sitting Pulse 66 Intake Visit Reasons: S/P Abrams; Dr. Vigil Intake Note: Patient follow up for abdominal bloating and Colonoscopy results. Patient cc: abdominal pain with bloating/nauseas and cramping with new medication dulcolax , diarrhea and constipation on and off. Instructor Dramatic Arts Required: No Accompanied by: Self / Same As Patient Allergies No Known Allergies Allergy (Verified 02/09/24 09:45) HPI HPI S/P Abrams; Dr. Vigil: Details: LAST VISIT: Irritable bowel syndrome with both constipation and diarrhea Postprandial diarrhea Abdominal bloating GERD (gastroesophageal reflux disease) Epigastric pain Plan Patient reports to be feeling better since the last time I have seen her. Patient reports that she changed her diet. Eating more fiber. Patient is moving her bowels better. Less postprandial abdominal bloating. Patient denies any dyspepsia, dysphagia or odynophagia. Denies melena, hematochezia, unintentional weight loss or ribbon like stools. Patient will continue avoiding dietary triggers and late night snacking. Staying upright for minimum 3 hours after meals discussed with patient. Patient denies any melena, hematochezia, unintentional weight loss or ribbon like stools. Patient will go for colonoscopy. Patient denies any issues with anesthesia in the past. No history of sleep apnea. Not on any anticoagulation medication. Patient denies any cardiac or respiratory symptoms. What to expect before during and after the procedure discussed with patient. The importance of clear liquid diet and good bowel prep day before procedure discussed with patient. Patient will follow-up in the office after the procedure, sooner on as needed basis. Patient is agreeable to this plan and verbalizes understanding of instructions. She was given the opportunity to ask questions and all questions answered. ? Thank you for allowing me participate in her care Medications New bisacodyl (Dulcolax (bisacodyl)) take 4 tabs at noon the day before your colonoscopy 20 mg (4 x 5 mg) PO ONCE 1 day 4 tabs 0RF Z12.11 polyethylene glycol 3350 (Miralax) As directed by gastroenterology department at [facility] 238 grams PO ONCE 238 grams 0RF Z12.11 Refilled sennosides (Natural Senna Laxative) 17.2 mg (2 x 8.6 mg) PO BEDTIME 180 tabs 3RF constipation K59.00 COLONOSCOPY: Findings: Terminal Ileum: Not evaluated Cecum: Mild melanosis coli noted throughout the entire colon Ascending Colon: Mild melanosis coli noted throughout the entire colon Transverse Colon: Mild melanosis coli noted throughout the entire colon Descending Colon: Mild melanosis coli noted throughout the entire colon Sigmoid Colon: Mild melanosis coli noted throughout the entire colon and moderate diverticulosis Rectum: Normal Ano-rectum: Moderate internal hemorrhoids Colon preparation: Excellent after some irrigation. [place] Bowel Preparation Scale Right colon; 3 Transverse colon: 3 Left colon; 3 (0 = Unprepared colon segment with mucosa not seen due to solid stool that cannot be cleared. 1 = Portion of mucosa of the colon segment seen, but other areas of the colon segment not well seen due to staining, residual stool and/or opaque liquid. 2 = Minor amount of residual staining, small fragments of stool and/or opaque liquid, but mucosa of colon segment seen well. 3 = Entire mucosa of colon segment seen well with no residual staining, small fragments of stool or opaque liquid) Impression and Post Procedure Diagnosis: Colonoscopy Findings: No polyps were detected Mild melanosis coli noted throughout the entire colon. Random biopsies were obtained in the right and left colon to check for microscopic colitis Moderate diverticulosis seen in the sigmoid colon Small hemorrhoids on retroflexed exam. Plan: Repeat Colonoscopy in 10 years if colon biopsies are normal. Above findings were reviewed with the patient and relevant handouts were given and the discharge area. BIOSPSIES SHOWED: A. Colon, random right, biopsy: Colonic mucosa with melanosis coli; negative for active, chronic or microscopic colitis. B. Colon, random left, biopsy: Colonic mucosa with melanosis coli; negative for active, chronic or microscopic colitis TODAY'S VISIT Patient is here today for follow-up and to discuss colonoscopy results. Patient denies any ill effects from the prep, anesthesia or procedure itself. Patient reports that she has been feeling well. No polyps found: On coli patient is not using senna but Dulcolax. Patient states that senna used to work better for her, however she is aware that she should avoid using it. Patient reports cramps when taking Dulcolax. Would like to switch to something else. Patient denies any melena, hematochezia. Denies any other GI concerning symptoms. Occasional acid reflux what she uses omeprazole for. 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 Gender identity: Female Female Reproductive History Menstrual Age of Menarche: 14 Review of Systems Const Denies weight gain and Denies weight loss ENT Reports no additional complaints, Denies dysphagia and Denies odynophagia Card Reports no additional complaints Resp Reports no additional complaints GI Denies abdominal pain, Denies belching, Denies melena, Reports bloating, Denies change in bowel habits, Denies dysphagia, Denies excessive flatus, Denies dyspepsia, Reports heartburn (Occasional), Denies diarrhea, Denies loose stools, Denies nausea, Denies odynophagia and Denies vomiting Reports no additional complaints Musc Reports no additional complaints Neuro Reports no additional complaints Psych Reports no additional complaints Endo Reports no additional complaints Physical Exam Vital Signs: Last Vital Signs Pulse 66 02/09/24 10:47 BP 97/45 L 02/09/24 10:47 BMI result Body Mass Index 24.7 Const General: healthy appearing, no acute distress and well developed Nutritional Appearance: well nourished Orientation/consciousness: patient oriented x3 Resp Effort & Inspection: normal respiratory effort, able to speak in complete sentences, no tracheal deviation and symmetric chest movement Auscultation: clear to auscultation bilaterally Cardio Rate: regular rate GI Inspection: Yes normal to inspection and No distended Palpation (GI): Soft to palpation, not firm, nontender and No hepatosplenomegaly present Auscultation: normal bowel sounds General: Yes no CVA tenderness Back/Spine/Pelvis Back: no CVA tenderness Skin General skin exam: elasticity normal, turgor normal and dry skin Neuro General: patient oriented x3 Psych Appearance: grossly normal Mental Status: mental status grossly normal Assessment & Plan Assessment & Plan (1) Irritable bowel syndrome with both constipation and diarrhea: Code(s): K58.2 - Mixed irritable bowel syndrome (2) Postprandial diarrhea: Code(s): K52.9 - Noninfective gastroenteritis and colitis, unspecified (3) Abdominal bloating: Code(s): R14.0 - Abdominal distension (gaseous) (4) GERD (gastroesophageal reflux disease): Code(s): K21.9 - Gastro-esophageal reflux disease without esophagitis Qualifiers: Esophagitis presence: esophagitis presence not specified Qualified Code(s): K21.9 - Gastro-esophageal reflux disease without esophagitis (5) Epigastric pain: Code(s): R10.13 - Epigastric pain Plan Patient will stop taking Dulcolax and will use MiraLax daily. Increase fluid intake and activity to promote better bowel motility. Patient can continue PPI on as-needed basis. Avoid dietary triggers and late night snacking. Staying upright for minimum 3 hours after meals discussed with patient. Patient will return in the office in 6 months, sooner on as needed basis. She is agreeable to this plan and verbalizes understanding of instructions. She was given the opportunity to ask questions and all questions answered. Colonoscopy in 10 years, sooner if clinically necessary. Patient denies any family history of CRC Medications: New polyethylene glycol 3350 (Miralax) 17 grams PO DAILY 510 grams 2RF Discontinued bisacodyl (Dulcolax (bisacodyl)) Discontinued Reason: Doctor's Order 10 mg (2 x 5 mg) PO BEDTIME 60 tabs 4RF Coding Level of Care Code Est Pt Level 3 (03484) Diagnoses Irritable bowel syndrome with both constipation and diarrhea K58.2 Postprandial diarrhea K52.9 Abdominal bloating R14.0 Gastroesophageal reflux disease, unspecified whether esophagitis present K21.9 Esophagitis presence: esophagitis presence not specified Epigastric pain R10.13 Time Spent (min) 30 Comment 20 minutes spent with patient and additional 10 minutes spent reviewing her records
[2024-02-09 10:47] VITALS: BP 97/45; PULSE 66; BMI 24.7
== END 2024-02-09 11:20 | disposition home or self-care (01) ==
PROVIDERS: PCP Internal Medicine; Visit Provider Nurse Practitioner Family
DX: K58.2 Mixed irritable bowel syndrome (principal); K52.9 Noninfective gastroenteritis and colitis, unspecified; R14.0 Abdominal distension (gaseous); K21.9 Gastro-esophageal reflux disease without esophagitis; R10.13 Epigastric pain
CPT/HCPCS: 99213

== ENCOUNTER → 2024-02-09 09:43 | Outpatient (BNVA) | payer OTHER, SELFPAY | PROVIDERS: PCP Internal Medicine; Visit Provider Nurse Practitioner Family ==

== ENCOUNTER 2024-03-19 15:32 | Outpatient (AMB) | payer OTHER, SELFPAY ==
--- NOTE | 2024-03-19 15:33 | MHC.OFFVIS ---
Vital Signs 03/19/24 15:40 Height 5 ft 2 in Weight 130 lb 2 oz BMI 23.8 BP 115/58 L Blood Pressure Location Lt brachial Position Sitting Pulse 66 Intake Visit Reasons: 6 mth breast exam Intake Note: Patient is seen in office for 6 month follow up visit, breast exam. Pt c/o: denies any concerns at the time of visit mm:09/05/23 MRI:10/19/23 Glass Embosser Required: No Simplex Operator: Simplex Operator Present Accompanied by: Self / Same As Patient Allergies No Known Allergies Allergy (Verified 03/19/24 15:39) HPI Comments Details: 48-year-old female patient with a known strong family history of breast cancer including her mother and maternal aunt, determined to be high risk for breast cancer due to her family history with a Tyrer-Cuzick remaining lifetime risk of breast cancer of 25%. She has been followed by Dr. Griffin and kB for this high risk and has previously undergone yearly breast MRI and mammograms. Genetic testing performed by Dr. Bourgeois is reported to be negative for any clinically significant genetic mutations or mutations of unknown significance. Her most recent mammogram dated 09/05/2023 revealed no mammographic evidence of malignancy ( BI-RADS 1 ). Follow-up mammogram is recommended in 1 year. Breast MRI on 10/19/2023 revealed an enhancing mass the 1 o'clock position right breast 4 cm from the nipple measuring 7 mm, increased in size from the previous year's MRI. This was felt to be suspicious (BI-RADS 4 right breast ) and focused ultrasound was recommended. This was performed on 11/03/2023. The findings were felt to be an intramammary lymph node, probably benign (BI-RADS 3). Six-month follow-up breast ultrasound is scheduled for 05/07/2024. The patient denies any palpable mass, skin change, nipple discharge, or enlarged lymph nodes in either breast. She is with 1 ab. Menarche at 14 years old, LMP on 09/11/2022. 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 Gender identity: Female Female Reproductive History Menstrual Age of Menarche: 14 Review of Systems Const All systems reviewed & are unremarkable except as noted in HPI and below Denies chills, Denies fever(s), Denies headache(s), Denies poor appetite and Denies weakness ENT Denies headache(s) Card Denies chest pain, Denies irregular heart rhythm, Denies palpitations and Denies dyspnea Resp Denies cough, Denies excessive phlegm production and Denies dyspnea GI Denies abdominal pain, Denies bloating, Denies change in bowel habits, Denies constipation, Denies heartburn, Denies diarrhea, Denies nausea and Denies vomiting Denies urinary frequency Musc Denies back pain, Denies muscle weakness and Denies numbness Skin/Breast Denies changing lesions and Denies unusual bruising Neuro Denies headache(s), Denies numbness, Denies paresthesias and Denies weakness Psych Denies anxiety and Denies depression Endo Denies palpitations Rich/Lymph Denies lymphadenopathy Physical Exam Const General: cooperative and no acute distress Nutritional Appearance: well nourished Orientation/consciousness: patient oriented x3 Limitations: no limitations HEENT Head: Yes normocephalic and Yes atraumatic Ears: hearing grossly normal bilaterally Chest Other: Left breast: No skin change, no nipple retraction, no nipple discharge, no palpable mass, no enlarged lymph nodes. Right breast: No skin change, no nipple retraction, no nipple discharge, no palpable mass, no enlarged lymph nodes Resp Effort & Inspection: normal respiratory effort, no audible wheezes, no cough and no respiratory distress Cardio Jugular venous distension: no JVD GI Inspection: Yes normal to inspection Skin Other: Warm, dry, no rash Neuro General: patient oriented x3 Extrem General: Yes no clubbing, cyanosis or edema Assessment & Plan Assessment & Plan (1) At high risk for breast cancer: Code(s): Z91.89 - Other specified personal risk factors, not elsewhere classified Category: Medical (2) Family history of breast cancer: Code(s): Z80.3 - Family history of malignant neoplasm of breast Category: Medical Plan 48-year-old female patient with a strong family history of breast cancer determined to be at high risk for breast cancer with a Tyrer-Cuzick remaining lifetime risk of breast cancer of 25%. Her most recent breast MRI of 10/19/2023 revealed a right breast enhancing mass in the 01:00 o'clock location 4 cm from the nipple. ( BI-RADS 4 right breast ). Subsequent ultrasound revealed an apparent benign lymph node. Repeat ultrasound in 6 months was recommended and is scheduled for 05/07/2024. Examination today revealed no suspicious findings in either breast. She will return in 6 months following her next mammogram. She is welcome to call sooner for any new concerns. Coding Level of Care Code Est Pt Level 3 (84507) Diagnoses At high risk for breast cancer Z91.89 Family history of breast cancer Z80.3
[2024-03-19 15:40] VITALS: BP 115/58; PULSE 66; BMI 23.8
== END 2024-03-19 15:52 | disposition home or self-care (01) ==
PROVIDERS: PCP Internal Medicine; Visit Provider Surgery
DX: R92.8 Other abnormal and inconclusive findings on diagnostic imaging of breast (principal); Z80.3 Family history of malignant neoplasm of breast; Z91.89 Other specified personal risk factors, not elsewhere classified
CPT/HCPCS: 99213

== ENCOUNTER → 2024-03-19 15:32 | Outpatient (BNVA) | payer OTHER, SELFPAY | PROVIDERS: PCP Internal Medicine; Visit Provider Surgery ==

== ENCOUNTER → 2024-04-09 10:31 | Outpatient (RCR) | payer OTHER, SELFPAY ==
[2021-02-05 14:48] VITALS: BMI 29.5
[2021-02-05 14:49] VITALS: BP 120/84; PULSE 73; RESP 18; TEMP 37.1; O2SAT 98
--- NOTE | 2021-02-05 15:51 | PM.HEMONCCN ---
Subjective - Subjective Chief complaint: consult for: Family history of breast cancer. Patient: new to practice Consult date: 02/05/21 Requesting Physician: Rod Primary Care Provider: Tono Renee MD Medical Summary: DIAGNOSIS: FAMILY HISTORY OF BREAST CANCER IN MOM. HPI - Consult Narrative Reason for consult: Consult for: Family history of breast cancer. Narrative: Yudi Gill is a pleasant 45 year old lady, Who tells me that her mom developed breast cancer at the age of 50. 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 she underwent a simple mastectomy with reconstruction. She did not require further chemotherapy nor antiestrogen therapy. Patient is rather concerned about her risk of developing breast cancer and so she is here for consultation. ROS: She denies easy fatigability. She has felt anxious about coming to this appointment. Appetite is good. Weight is stable. She denies any headache no dizziness. No chest pain or trouble breathing. Denies abdominal pain nausea vomiting heartburn indigestion. Bowels are working without any gross blood in it. Denies any urinary complaints. She has not had a period in 5 years. She has the IUD in place. Denies any joint pain or muscle pain. Denies focal weakness. Denies depression. Family history: Her mom developed breast cancer at 50. A paternal aunt had breast cancer in her 60s. Grandfather had colon cancer. Maternal aunt had non-Hodgkin's lymphoma. 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 She has no children. She denies smoking. She usually drinks on Fridays and Saturdays. Review of Systems - Constitutional Reports no additional constitutional complaints, Denies lack of energy, Denies malaise, Reports weight gain - Eyes Reports no additional eye complaints, Denies double vision - ENT Reports no additional ear, nose, mouth, and throat complaints - Cardiovascular Reports no additional cardiovascular complaints - Respiratory Reports no additional respiratory complaints - Gastrointestinal Reports no additional gastrointestinal complaints - Genitourinary Reports no additional female genitourinary complaints - Musculoskeletal Reports no additional musculoskeletal complaints - Integumentary/Breasts Skin/Breast: Reports no additional skin complaints - Neurologic Reports no additional neurologic complaints - Psychiatric Reports no additional psychiatric complaints - Endocrine Reports no additional endocrine complaints - Hematologic/Lymphatic Reports no additional hematologic/lymphatic complaints - Allergic/Immunologic Reports no additional allergic/immunologic complaints Oncology Screenings - ECOG Performance Status ECOG Performance Status: 0 [facility] Medical History: Medical History (Last Reviewed 02/05/21 @ 14:56 by Saray Dee RN) Asthma Functional capacity: independent ambulation Patient : No Family History: Family History (Last Updated 02/05/21 @ 15:18 by Saray Dee RN) Mother Breast CA Father Diabetes Maternal Aunt Non-Hodgkin lymphoma Paternal Uncle Lung cancer Social History: Social History (Last Updated 02/05/21 @ 14:58 by Saray Dee RN) Alcohol History: Alcohol intake: former Tobacco History: Patient Tobacco Use Status: Former Tobacco user Smoked in Last 30 Days: No Smoke Quit Date: 2015 Nutrition Assessment: Patient : No Home Medications and Allergies Home Medications Medication Instructions Recorded Confirmed Type levonorgestrel 20 mcg/24 hours (6 1 device INTRAUTERINE 01/20/21 History yrs) 52 mg intrauterine device montelukast 10 mg tablet 10 mg PO QPM 01/20/21 02/05/21 History Russian Ginseng 1 tab PO DAILY 02/05/21 02/05/21 History Benadryl Allergy 25 mg PO PRN 02/05/21 History magnesium 1 tab PO DAILY 02/05/21 02/05/21 History Allergies Allergy/AdvReac Type Severity Reaction Status Date / Time No Known Allergies Allergy Verified 01/20/21 14:54 Physical Exam Vital signs: Vital Signs Temp 98.7 F 02/05/21 14:49 Pulse 73 02/05/21 14:49 Resp 18 02/05/21 14:49 BP 120/84 02/05/21 14:49 Pulse Ox 98 02/05/21 14:49 Intake & Output 02/04/21 02/05/21 02/05/21 18:59 06:59 18:59 Other: Weight 73.2 kg [place] Weight in Grams 84709 Weight 73.2 kg - Constitutional Present: no acute distress - Routine HEENT Exam Head: Present: normal inspection ENT: Present: normal exam - Routine Neck Exam Present: supple. Absent: lymphadenopathy - Routine Chest/Breast/Axilla Exam Breast: Absent: tenderness - Routine Respiratory Exam Present: CTAB - Routine Cardiovascular Exam Cardiovascular: Present: RRR, S1, S2 - Routine Abdominal Exam Present: normal bowel sounds, soft. Absent: nontender - Routine Rectal Exam Patient deferred: digital exam - Routine Extremities Exam Present: nontender - Routine Back/Spine/Pelvis Exam Back/Spine: Absent: CVA tenderness Assessment and Plan (1) At high risk for breast cancer Status: Acute This is a pleasant 45-year-old lady with a family history of breast cancer in her mom, who developed it at the age of 50. Her mom has not undergone genetic testing. She is in [place]. She had a normal mammogram on 07/22. She had an MRI of the breast recently that revealed: 1. Left breast with oval enhancing T2 bright mass 1 o'clock position which may represent an intramammary lymph node. 2. Right breast with oval enhancing T2 bright mass 10 o'clock position which may represent an intramammary lymph node. ASSESSMENT: LEFT BREAST: BI-RADS 3, probably benign. RIGHT BREAST: BI-RADS 3, probably benign. RECOMMENDATIONS: Short-interval follow-up in 6-12 months to assess findings in the breasts bilaterally. I offered her genetic testing. Went over the pros and cons of such testing, including the therapeutic options if it turns out to be positive.. PLAN: She watched a video, then spoke to the counselor. She will have the labs drawn for [facility] BRCA 1 and 2 analysis. Will make further recommendations about screening upon the above results. She will return in a couple months for a follow-up visit. All her questions were answered to her satisfaction. thank you, CC: Dr. Griffin. Dr. renee.
--- NOTE | 2021-02-05 16:26 | MHC.HEMONC ---
Exam with Dr Bourgeois. Medications/Clinical Summary updated by this RN. Patient denied pain. Patient reviewed [employer] video and qualifies for evaluation. Blood drawn, consents signed and package prepared to send to [employer].
--- NOTE | 2021-03-08 15:29 | MHC.HEMONC ---
pt was denied genetic testing per [facility]. I left message for pt to call our office for this information. Dr Bourgeois aware.
[2021-04-08 14:13] LABS: MANUAL DIFF FLAG NO
[2021-04-08 14:17] LABS: Basophils Percent Auto 0.3 % (0-2); Eosinophils Absolute Auto 0.1 X10*3/uL (0.0-0.4); Eosinophils Percent Auto 1.2 % (0-4); Hematocrit 40.4 % (37-47); Hemoglobin 13.5 g/dl (12.0-16.0); Imm Gran Abs Auto 0.03 X10*3/uL (0.00-0.03); Imm Gran Pct Auto 0.3 % (0.0-0.4); Lymphocytes Absolute Auto 1.6 X10*3/uL (1.2-4.9); Lymphocytes Percent Auto 14.3 % (20-40); Mean Corpuscular HGB Conc 33.4 g/dl (31.0-35.0); Mean Corpuscular Hemoglobin 32.2 pg (27.0-33.0); Mean Corpuscular Volume 96.4 fL (80-98); Mean Platelet Volume 8.9 fL (9.4-12.3); Monocytes Absolute Auto 0.5 X10*3/uL (0.1-1.2); Monocytes Percent Auto 4.5 % (2-11); Neutrophils Absolute Auto 8.8 X10*3/uL (2.0-8.3); Neutrophils Percent Auto 79.4 % (45-73); Platelet Count 305 X10*3/uL (160-400); Red Blood Count 4.19 X10*6/uL (4.20-5.50); Red Cell Distribution Width 12.5 % (11.0-16.0)
[2021-04-08 14:19] VITALS: BP 115/59; PULSE 79; RESP 16; TEMP 36.3; O2SAT 99; BMI 31.3
--- NOTE | 2021-04-08 14:24 | PM.HEMONCPN ---
Medical Summary - Medical Summary Date of Service: 04/08/21 Chief complaint: Follow-up for: Family history of breast cancer. Medical Summary: DIAGNOSIS: FAMILY HISTORY OF BREAST CANCER IN MOM. Interval History Interval history: Yudi Gill is a pleasant 45 year old lady, here for a follow-up visit. She has been doing very well. She denies easy fatigability. She has felt anxious about coming to this appointment. Appetite is good. Weight is stable. She denies any headache no dizziness. No chest pain or trouble breathing. Denies abdominal pain nausea vomiting heartburn indigestion. Bowels are working without any gross blood in it. Denies any urinary complaints. She has not had a period in 5 years. She has the IUD in place. She follows up with Dr. Griffin. Denies any joint pain or muscle pain. Denies focal weakness. Denies depression. Previous history: She tells me that her mom developed breast cancer at the age of 50. 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 She underwent a simple mastectomy with reconstruction. She did not require further chemotherapy nor antiestrogen therapy. Patient is rather concerned about her risk of developing breast cancer. Family history: Her mom developed breast cancer at 50. A paternal aunt had breast cancer in her 60s. Grandfather had colon cancer. Maternal aunt had non-Hodgkin's lymphoma. 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 She denies smoking. She usually drinks on Fridays and Saturdays. Review of Systems - Constitutional Reports no additional constitutional complaints - Eyes Reports no additional eye complaints - ENT Reports no additional ear, nose, mouth, and throat complaints - Cardiovascular Reports no additional cardiovascular complaints - Respiratory Reports no additional respiratory complaints - Gastrointestinal Reports no additional gastrointestinal complaints - Genitourinary Reports no additional female genitourinary complaints - Musculoskeletal Reports no additional musculoskeletal complaints - Integumentary/Breasts Skin/Breast: Reports no additional skin complaints - Neurologic Reports no additional neurologic complaints - Psychiatric Reports no additional psychiatric complaints - Endocrine Reports no additional endocrine complaints - Hematologic/Lymphatic Reports no additional hematologic/lymphatic complaints - Allergic/Immunologic Reports no additional allergic/immunologic complaints [facility] Medical History: Medical History (Last Reviewed 02/05/21 @ 14:56 by Saray Dee RN) Asthma Functional capacity: independent ambulation Patient : No Family History: Family History (Last Updated 02/05/21 @ 15:18 by Saray Dee RN) Mother Breast CA Father Diabetes Maternal Aunt Non-Hodgkin lymphoma Paternal Uncle Lung cancer Social History: Social History (Last Updated 02/05/21 @ 14:58 by Saray Dee RN) Alcohol History: Alcohol intake: former Tobacco History: Patient Tobacco Use Status: Former Tobacco user Smoked in Last 30 Days: No Smoke Quit Date: 2015 Nutrition Assessment: Patient : No Oncology Screenings - ECOG Performance Status ECOG Performance Status: 0 Home Medications and Allergies Home Medications Medication Instructions Recorded Confirmed Type levonorgestrel 20 mcg/24 hours (6 1 device INTRAUTERINE 01/20/21 History yrs) 52 mg intrauterine device (Mirena) montelukast 10 mg tablet 10 mg PO QPM 01/20/21 02/05/21 History Bermudian Ginseng 1 tab PO DAILY 02/05/21 02/05/21 History Benadryl Allergy 25 mg PO PRN 02/05/21 History magnesium 1 tab PO DAILY 02/05/21 02/05/21 History Allergies Allergy/AdvReac Type Severity Reaction Status Date / Time No Known Allergies Allergy Verified 01/20/21 14:54 Exam Vital signs: Vital Signs Temp 97.4 F 04/08/21 14:19 Pulse 79 04/08/21 14:19 Resp 16 04/08/21 14:19 BP 115/59 L 04/08/21 14:19 Pulse Ox 99 04/08/21 14:19 Intake & Output 04/07/21 04/08/21 04/08/21 18:59 06:59 18:59 Other: Weight 77.6 kg [place] Weight in Grams 56099 Weight 77.6 kg Body Mass Index 31.3 - Constitutional Present: no acute distress - Routine HEENT Exam Head: Present: normal inspection Eye: Present: normal appearance ENT: Present: mucous membranes moist - Routine Neck Exam Present: full ROM - Routine Respiratory Exam Present: CTAB - Routine Cardiovascular Exam Cardiovascular: Present: RRR, S1, S2 - Routine Abdominal Exam Present: normal bowel sounds, soft. Absent: nontender - Routine Rectal Exam Patient deferred: digital exam - Routine Extremities Exam Present: nontender - Routine Back/Spine/Pelvis Exam Back/Spine: Absent: CVA tenderness - Routine Skin Exam Present: intact - Routine Neurological Exam Present: alert, oriented X3 - Routine Psychiatric Exam Present: normal affect Data - Labs CBC & Chem 7: 04/08/21 14:11 04/08/21 14:11 Labs: 04/08/21 14:11 Complete Blood Count Auto Diff Routine Laboratory Last Values WBC 11.0 X10*3/uL (4.8-10.8) H 04/08/21 14:11 RBC 4.19 X10*6/uL (4.20-5.50) L 04/08/21 14:11 Hgb 13.5 g/dl (12.0-16.0) 04/08/21 14:11 Hct 40.4 % (37-47) 04/08/21 14:11 MCV 96.4 fL (80-98) 04/08/21 14:11 MCH 32.2 pg (27.0-33.0) 04/08/21 14:11 MCHC 33.4 g/dl (31.0-35.0) 04/08/21 14:11 RDW 12.5 % (11.0-16.0) 04/08/21 14:11 Plt Count 305 X10*3/uL (160-400) 04/08/21 14:11 MPV 8.9 fL (9.4-12.3) L 04/08/21 14:11 Immature Gran % (Auto) 0.3 % (0.0-0.4) 04/08/21 14:11 Neut % (Auto) 79.4 % (45-73) H 04/08/21 14:11 Lymph % (Auto) 14.3 % (20-40) L 04/08/21 14:11 [place] % (Auto) 4.5 % (2-11) 04/08/21 14:11 Eos % (Auto) 1.2 % (0-4) 04/08/21 14:11 Baso % (Auto) 0.3 % (0-2) 04/08/21 14:11 Lymph # (Auto) 1.6 X10*3/uL (1.2-4.9) 04/08/21 14:11 [place] # (Auto) 0.5 X10*3/uL (0.1-1.2) 04/08/21 14:11 Eos # (Auto) 0.1 X10*3/uL (0.0-0.4) 04/08/21 14:11 Baso # (Auto) 0.0 X10*3/uL (0.0-0.2) 04/08/21 14:11 Abs Immat Gran (auto) 0.03 X10*3/uL (0.00-0.03) 04/08/21 14:11 Absolute Neuts (auto) 8.8 X10*3/uL (2.0-8.3) H 04/08/21 14:11 Absolute Nucleated RBC 0.000 X10*3/uL (0.0-0.012) 04/08/21 14:11 Nucleated RBC % (auto) 0.0 /100WBC (0.0-0.2) 04/08/21 14:11 Assessment and Plan Patient Active problem list reviewed?: Yes (1) At high risk for breast cancer Status: Acute Assessment and plan: This is a pleasant 45-year-old lady with a family history of breast cancer in her mom, who developed it at the age of 50. Her mom has not undergone genetic testing. She is in [place]. She had a normal mammogram on 07/22. She had an MRI of the breast recently that revealed: 1. Left breast with oval enhancing T2 bright mass 1 o'clock position which may represent an intramammary lymph node. 2. Right breast with oval enhancing T2 bright mass 10 o'clock position which may represent an intramammary lymph node. ASSESSMENT: LEFT BREAST: BI-RADS 3, probably benign. RIGHT BREAST: BI-RADS 3, probably benign. RECOMMENDATIONS: Short-interval follow-up in 6-12 months to assess findings in the breasts bilaterally. I offered her genetic testing. Went over the pros and cons of such testing, including the therapeutic options if it turns out to be positive. She watched a video, then spoke to the counselor. She had the labs drawn for [facility] BRCA 1 and 2 analysis. She is here to review the results. These came back negative. This is reassuring. Her results were shared with her. Her She was counseled about it. 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 She already has been scheduled for her mammogram and the year and MRI in 6 months time. All her questions were answered to her satisfaction. thank you, CC: Dr. Griffin. Dr. renee. - Time Spent With Patient Time Spent with Patient (in minutes): 30
[2021-04-08 14:36] LABS: Alanine Aminotransferase 18 U/L (0-31); Albumin Level 3.9 g/dL (3.5-5.0); Alkaline Phosphatase 41 U/L (39-117); Anion Gap 11 (12-20); Aspartate Amino Transferase 20 U/L (5-31); Bilirubin Total 0.8 mg/dL (0.0-1.0); Blood Urea Nitrogen 14 mg/dL (9-16); Calcium 9.2 mg/dL (8.4-10.2); Carbon Dioxide 25 mmol/L (22-29); Chloride 107 mmol/L (96-108); Creatinine Clr Calc Pharmacy 85.3; Estimated Glomerular Filt Rate > 60; Glucose Random 105 mg/dL (60-115); Potassium 4.1 mmol/L (3.3-5.1); Sodium 139 mmol/L (135-145); Total Protein 6.2 g/dL (6.5-8.0)
--- NOTE | 2021-04-08 16:06 | MHC.HEMONCMA ---
Pt came in for onc follow up and states she is doing well. clinical summary was updated and labs were drawn. pt will call office if needed to be seen.
== END | disposition home or self-care (01) ==
LOC: HO.ONC 02-05 14:02
PROVIDERS: PCP Internal Medicine; Referring Provider Obstetrics & Gynecology; Visit Provider Internal Medicine Medical Oncology
DX: Z71.83 Encounter for nonprocreative genetic counseling (principal); Z80.3 Family history of malignant neoplasm of breast
CPT/HCPCS: 36415; 80053; 85025; 99204; 99214

== ENCOUNTER 2024-05-07 15:19 | Outpatient (REF) | payer OTHER, SELFPAY ==
--- NOTE | ~2024-05-07 | US_ITS ---
EXAMINATION: US DIAGNOSTIC ULTRASOUND BREAST, RIGHT CLINICAL INFORMATION: Six-month follow-up for probably benign lymph node 1:00 axis right breast, correlating with Second Look ultrasound for enhancing mass on MRI 10/19/2023, right breast 1:00 axis anterior one third measuring approximately 6-7 mm in diameter with plateau-type kinetics. COMPARISON: Ultrasound right breast 11/03/2023. Breast MRI 10/19/2023, 08/25/2022, and 09/03/2021. TECHNIQUE: Ultrasound of the breast is performed with real-time red scale imaging and color Doppler. Attention was given to the 1:00 axis and upper inner quadrant of the right breast in the region of MRI and/or ultrasound concern. FINDINGS: In review of the recent MRI, the enhancing oval mass at the 1:00 axis, anterior one third seems to demonstrate a prominent fatty hilum, suggesting a lymph node. Previous red scale ultrasound imaging of the right breast demonstrated what was believed to be a small 5 mm lymph node in the 1:00 axis of the right breast, 2 cm from the nipple. Current real-time red scale and color Doppler imaging including a cine clip demonstrates the area of prior interest does not represent a lymph node, and on today's exam appears to represent an ectatic duct with a small amount of intraductal debris. No internal color Doppler flow. There is no intraductal mass seen. No current finding in the upper inner right breast to account for the MRI finding on 10/19/2023. Ultrasound limited by very dense fibroglandular dense breast tissue and associated mild duct ectasia. US/US breast RT limited mamm only IMPRESSION: -No current ultrasound findings suspicious for malignancy within the upper inner quadrant right breast. -Previously seen hypoechoic oval 5 mm abnormality in the 1:00 axis right breast 2 cm from the nipple is not well reproduced, and instead appears to represent on real-time imaging an ectatic duct with small amount of internal debris. This is benign. -No definite current correlate for the MRI finding at the 1:00 axis is present. Recommend the patient be referred back to MRI screening and yearly mammographic screening. ASSESSMENT: BI-RADS 2 - Benign findings. RECOMMENDATION: Routine annual mammography screening. Follow-up breast MRI when due for MR screening. Electronically signed by: Miah Taylor MD 05/07/2024 04:51 PM EDT
== END 2024-05-07 15:20 | disposition home or self-care (01) ==
LOC: HO.MAMMO 15:19
PROVIDERS: PCP Internal Medicine; Visit Provider Surgery
DX: Z91.89 Other specified personal risk factors, not elsewhere classified (principal); Z80.3 Family history of malignant neoplasm of breast
CPT/HCPCS: 76642

== ENCOUNTER → 2024-05-07 15:30 | Outpatient (BNV) | payer OTHER, SELFPAY | PROVIDERS: PCP Internal Medicine; Visit Provider Radiology Diagnostic Radiology | DX: N63.12 Unspecified lump in the right breast, upper inner quadrant (principal) | CPT/HCPCS: 76642 ==

== ENCOUNTER 2024-08-26 15:02 | Outpatient (AMB) | payer OTHER, SELFPAY ==
--- NOTE | 2024-08-26 15:13 | A.OFFVIS_ITS ---
Vital Signs 08/26/24 15:14 Height 5 ft 2 in Weight 127 lb 6.835 oz BMI 23.3 BP 108/50 L Blood Pressure Location Lt brachial Position Sitting Pulse 70 Pulse Source Pulse Oximeter Pulse Oximetry (%) 97 Oxygen Delivery Method Room Air Intake Visit Reasons: 6 mo f/u bloating Intake Note: ESTABLISHED PATIENT Reason; 6 mos - Abd bloating. Changes/concerns? No GI concerns currently. Traveling Representative Required: No Traveling Representative Services: Traveling Representative Offered & Declined Allergies No Known Allergies Allergy (Verified 08/26/24 15:14) HPI HPI 6 mo f/u bloating: Details: LAST VISIT: Irritable bowel syndrome with both constipation and diarrhea Postprandial diarrhea Abdominal bloating GERD (gastroesophageal reflux disease) Epigastric pain Plan Patient will stop taking Dulcolax and will use MiraLax daily. Increase fluid intake and activity to promote better bowel motility. Patient can continue PPI on as-needed basis. Avoid dietary triggers and late night snacking. Staying upright for minimum 3 hours after meals discussed with patient. Patient will return in the office in 6 months, sooner on as needed basis. She is agreeable to this plan and verbalizes understanding of instructions. She was given the opportunity to ask questions and all questions answered. Colonoscopy in 10 years, sooner if clinically necessary. Patient denies any family history of CRC Medications New polyethylene glycol 3350 (Miralax) 17 grams PO DAILY 510 grams 2RF Discontinued bisacodyl (Dulcolax (bisacodyl)) Discontinued Reason: Doctor's Order 10 mg (2 x 5 mg) PO BEDTIME 60 tabs 4RF TODAY'S VISIT Patient is here today for follow-up. Since last visit patient reports that she has been feeling fairly well, however patient reports that when she went [place] she had severe abdominal pain and diarrhea. Patient went to emergency department they where she was evaluated. Patient brought her paperwork with her and no acute findings. Patient did not have any leukocytos is. Was told that most likely was related to food. Patient reports similar symptoms when traveled to [facility] and then to [place]. Patient currently reports that she is not taking any probiotics. Patient's sister gave sciatica take and she has yet to purchase her own. Patient reports that when she was in [place] she had norovirus over the [place]. Patient reports no symptoms since returning to the [facility] Patient is moving her bowels well without any issues takes MiraLax at times as well as Citrucel. Patient denies any melena, hematochezia, unintentional weight loss or ribbon like stools. Patient denies any dyspepsia, dysphagia or odynophagia. 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 Gender identity: Female Female Reproductive History Menstrual Age of Menarche: 14 Review of Systems Const Denies weight gain and Denies weight loss ENT Reports no additional complaints, Denies dysphagia and Denies odynophagia Card Reports no additional complaints Resp Reports no additional complaints GI Denies abdominal pain, Denies belching, Denies melena, Denies bloating, Denies change in bowel habits, Denies dysphagia, Denies excessive flatus, Denies dyspepsia, Denies heartburn, Denies diarrhea, Denies loose stools, Denies nausea, Denies odynophagia and Denies vomiting Musc Reports no additional complaints Neuro Reports no additional complaints Psych Reports no additional complaints Endo Reports no additional complaints Physical Exam Vital Signs: Last Vital Signs Pulse 70 08/26/24 15:14 BP 108/50 L 08/26/24 15:14 Pulse Ox 97 08/26/24 15:14 Oxygen Delivery Method Room Air 08/26/24 15:14 BMI result Body Mass Index 23.3 Const General: healthy appearing, no acute distress and well developed Nutritional Appearance: well nourished Orientation/consciousness: patient oriented x3 Resp Effort & Inspection: normal respiratory effort, able to speak in complete sentences, no tracheal deviation and symmetric chest movement Auscultation: clear to auscultation bilaterally Cardio Rate: regular rate GI Inspection: Yes normal to inspection and No distended Palpation (GI): Soft to palpation, not firm, nontender and No hepatosplenomegaly present Auscultation: normal bowel sounds General: Yes no CVA tenderness Back/Spine/Pelvis Back: no CVA tenderness Skin General skin exam: elasticity normal, turgor normal and dry skin Neuro General: patient oriented x3 Psych Appearance: grossly normal Mental Status: mental status grossly normal Assessment & Plan Assessment & Plan (1) Irritable bowel syndrome with both constipation and diarrhea: Code(s): K58.2 - Mixed irritable bowel syndrome (2) Postprandial diarrhea: Code(s): K52.9 - Noninfective gastroenteritis and colitis, unspecified (3) Abdominal bloating: Code(s): R14.0 - Abdominal distension (gaseous) (4) GERD (gastroesophageal reflux disease): Code(s): K21.9 - Gastro-esophageal reflux disease without esophagitis Qualifiers: Esophagitis presence: esophagitis presence not specified Qualified Code(s): K21.9 - Gastro-esophageal reflux disease without esophagitis (5) Epigastric pain: Code(s): R10.13 - Epigastric pain Plan Continue low FODMAP diet. Avoid dietary triggers and late night snacking. Staying upright for minimum 3 hours after meals discussed with patient. Continue Citrucel and MiraLax. Increase fluid intake and activity to promote better bowel motility. Patient will get probiotics and take it every day. Patient was encouraged to do that is specially before traveling. Patient was encouraged to buy bottled water when traveling to tropical countries. Continue omeprazole daily. Follow-up in 6 months, sooner on as needed basis. She is agreeable to this plan and verbalizes understanding of instructions. She was given the opportunity to ask questions and all questions answered. Thank you for allowing me to participate in her care Coding Level of Care Code Est Pt Level 3 (88811) Diagnoses Irritable bowel syndrome with both constipation and diarrhea K58.2 Postprandial diarrhea K52.9 Abdominal bloating R14.0 Gastroesophageal reflux disease, unspecified whether esophagitis present K21.9 Esophagitis presence: esophagitis presence not specified Epigastric pain R10.13 Time Spent (min) 30 Comment 20 minutes spent with patient and additional 10 minutes spent reviewing her records
[2024-08-26 15:14] VITALS: BP 108/50; PULSE 70; O2SAT 97; BMI 23.3
== END 2024-08-26 18:39 | disposition home or self-care (01) ==
PROVIDERS: PCP Internal Medicine; Visit Provider Nurse Practitioner Family
DX: K58.2 Mixed irritable bowel syndrome (principal); R14.0 Abdominal distension (gaseous); K21.9 Gastro-esophageal reflux disease without esophagitis; R10.13 Epigastric pain
CPT/HCPCS: 99213

== ENCOUNTER → 2024-08-26 15:02 | Outpatient (BNVA) | payer OTHER, SELFPAY | PROVIDERS: PCP Internal Medicine; Visit Provider Nurse Practitioner Family ==

== ENCOUNTER 2024-09-02 06:54 | Outpatient (REF) | payer OTHER, SELFPAY ==
--- OUTSIDE RECORDS SUMMARY | 2024-09-02 06:57 | XMS_ITS | Continuity of Care Document ---
Author Organization [facility], [facility] Address [address] [place] [address] Assessment No assessment recorded. Plan of Treatment Reminders Order Date Submit Date Provider Last Modified By Organization Details Last Modified Time Details Appointments ANNUAL EXAM 2025 09:30A M JOSE CARLOS WEEKS Not available Not available Not available Lab iron + TIBC + ferritin, serum 2024 025 [facility], [address] [place] [address], [id number], 08/23/2024 10:58:55 PTH (parathyr oid hormone), intact + calcium, serum or plasma 2024 025 [facility], [address] [place] [address], [id number], 08/23/2024 10:58:55 estradiol , serum 2024 025 [facility], [address] [place] [address], [id number], 08/23/2024 10:58:55 progester one, serum 2024 025 [facility], [address] [place] [address], [id number], 08/23/2024 10:58:55 lh + FSH, serum 2024 025 [facility], [address] [place] [address], [id number], 08/23/2024 10:58:55 estrogen, total, serum 2024 025 [facility], [address] [place] [address], [id number], 08/23/2024 10:58:55 prolactin , serum 2024 025 [facility], [address] [place] [address], [id number], 08/23/2024 10:58:55 testoster one, total, serum 2024 025 [facility], [address] [place] [address], [id number], 08/23/2024 10:58:55 CMP, serum or plasma 2024 025 [facility], [address] [place] [address], [id number], 08/23/2024 10:58:54 CBC w/ auto diff 2024 025 [facility], [address] [place] [address], [id number], 08/23/2024 10:58:55 lipid panel, blood 2024 025 [facility], [address] [place] [address], [id number], 08/23/2024 10:58:55 vitamin D, 25-hydrox y, total, serum 2024 025 [facility], [address] [place] [address], [id number], 08/23/2024 10:58:55 TSH + free T4, serum 2024 025 [facility], [address] [place] [address], [id number], 08/23/2024 10:58:55 hemoglobi n A1c, QN, blood 2024 025 [facility], [address] [place] [address], [place], [address], 08/23/2024 10:58:54 vitamin B12 + folate, serum or blood 2024 025 [facility], [address] [place] [address], [place], [address], 08/23/2024 10:58:55 Referral None recorded. Procedures None recorded. Surgeries None recorded. Imaging None recorded. Medication Orders omeprazol e 20 mg capsule,d elayed release 2024 025 [facility] #[id number], [address] [place], [address], 08/23/2024 10:57:37 Patient TargetsNo targets recorded. Patient InstructionsNo instructions recorded. Reason for Referral None Reported. 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 [facility] 8 16:20:51 Gastroes ophageal reflux disease 725253269 Active 2018 Not Available [facility] 3 11:47:12 Eczema 98776455 Active 2021 Not Available [facility] 3 11:47:13 Pain of left shoulder joint 8747783680 4519069 Active 2022 Not Available [facility] 3 11:47:12 Inguinal pain 433096431 Active 2022 Not Available [facility] 3 11:47:12 Left inguinal hernia 187003865 Active 2022 JOSE CARLOS WEEKS [address] [place], [address], [facility] 3 09:09:30 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 Procedures Surgical History Date Name Laterality Status Provider Name and Address Organization Details Recorded Time 4 Most Recent Mammogram completed Ana Cedeno [facility] 05/08/2024 08:53:13 Imaging Results None recorded. Procedure Notes None recorded. Medical Equipment None Reported. Allergies Allergen ID Allergen Name Allergen Category Reaction Reaction Severity Criticality Documentation Date Start Date Code Code System Note Provider Name and Address Organization Details Recorded Time 2342 Wellbutri n medicatio n hives Not available Not available 04/25/2018 40777 RxNorm 300 mg dose only JOSE CARLOS WEEKS [address] [place], [address], [facility] 2 09:23:20 Medications Name Sig Start Date Stop Date Status Note LastModified by Organization Details LastModified Time Mirena 21 mcg/24 hr (up to 8 years) 52 mg intrauterin e device TO BE INSERTED ONE TIME BY PRESCRIBE R. ROUTE INTRAUTER INE. 05/10 completed Not Available Not Available Not Available prednisone 10 mg tablet TAKE 1 TABLET BY MOUTH TWICE A DAY FOR 5 DAYS 08/23 completed Not Available Not Available Not Available loperamide 2 mg capsule TAKE 1 CAPSULE BY MOUTH 4 TIMES PER DAY FOR 3 DAYS 03/31 completed Not Available Not Available Not Available azithromyci n 250 mg tablet TAKE 2 TABLETS BY MOUTH TODAY, THEN TAKE 1 TABLET DAILY FOR 4 DAYS DIRECTED 09/08 completed Not Available Not Available Not Available Lidocaine Viscous 2 % mucosal solution TAKE 5 ML (MUCOUS MEMBRANE) 4 TIMES PER DAY ( NEEDED FOR PAIN) FOR 7 DAYS 08/23 completed Not Available Not Available Not Available benzonatate 200 mg capsule TAKE 1 CAPSULE BY MOUTH THREE TIMES A DAY NEEDED FOR 7 DAYS 08/23 completed Not Available Not Available Not Available ranitidine 300 mg tablet TAKE 1 TABLET BY MOUTH EVERY 12 HOURS 05/04 completed Not Available Not Available Not Available senna 8.6 mg tablet TAKE 2 TABLETS BY MOUTH AT BEDTIME FOR CONSTIPAT ION 08/23 completed Not Available Not Available Not Available meloxicam 15 mg tablet TAKE 1 TABLET BY MOUTH EVERY DAY FOR 14 DAYS 05/15 completed Not Available Not Available Not Available Medrol (Kirk) 4 mg tablets in a dose pack 24 mg PO on day 1, then decr. by 4 mg/day x5 days per dose pack instructi ons 10/26 completed Not Available Not Available Not Available clonazepam 0.5 mg tablet TAKE 1 TABLET BY MOUTH TWICE A DAY NEEDED active Not Available Not Available No t Available terconazole 0.8 % vaginal cream APPLY 1 APPLICATO RFUL VAGINALLY AT BEDTIME FOR 3 DAYS 05/05 completed Not Available Not Available Not Available naproxen 250 mg tablet TAKE 1 TABLET BY MOUTH TWICE A DAY NEEDED FOR PAIN FOR 7 DAYS TAKE WITH FOOD 08/23 completed Not Available Not Available Not Available ciprofloxac in 500 mg tablet TAKE 1 TABLET BY MOUTH EVERY 12 HOURS FOR 5 DAYS 05/15 completed Not Available Not Available Not Available amoxicillin 875 mg tablet 10/26 completed Not Available Not Available Not Available dicyclomine 20 mg tablet TAKE 1 TABLET BY MOUTH THREE TIMES A DAY FOR 7 DAYS 03/31 completed Not Available Not Available Not Available benzonatate 100 mg capsule 10/26 completed Not Available Not Available Not Available buspirone 10 mg tablet TAKE 1 TABLET BY MOUTH TWICE A DAY active Not Available Not Available No t Available clotrimazol e-betametha sone 1 %-0.05 % topical cream APPLY TWICE A DAY TOPICALLY FOR 5 DAYS 05/05 completed Not Available Not Available Not Available betamethaso ne dipropionat e 0.05 % topical cream APPLY SPARINGLY TO AFFECTED AREA EVERY DAY 08/23 completed Not Available Not Available Not Available omeprazole 20 mg capsule,del ayed release TAKE 1 CAPSULE BY MOUTH EVERY DAY active Not Available Not Available No t Available montelukast 10 mg tablet TAKE 1 TABLET BY MOUTH EVERY DAY IN THE MORNING active Not Available Not Available No t Available codeine 10 mg-guaifene sin 100 mg/5 mL oral liquid Take 10 mL every 4 hours by oral route for 7 days. 09/07 completed Not Available Not Available Not Available bisacodyl 5 mg tablet,doroteo yed release TAKE 2 TABLETS BY MOUTH AT BEDTIME 08/23 completed Not Available Not Available Not Available levofloxaci n 500 mg tablet Take 1 tablet every 24 hours by oral route for 7 days. 05/10 completed Not Available Not Available Not Available albuterol sulfate HFA 90 mcg/actuati on aerosol inhaler INHALE 2 PUFFS BY MOUTH EVERY 4 HOURS NEEDED FOR 30 DAYS. active Not Available Not Available No t Available fluticasone propionate 50 mcg/actuati on nasal spray,suspe nsion USE 1 SPRAY IN EACH NOSTRIL TWICE A DAY active Not Available Not Available No t Available ParaGard T 380A 380 square mm intrauterin e device 05/10 completed Not Available Not Available Not Available metronidazo le 0.75 % topical gel APPLY TO RED AREAS OF THE CHEEKS AND NOSE 2X DAILY. 12/02 completed Not Available Not Available Not Available amoxicillin 875 mg-potassiu m clavulanate 125 mg tablet TAKE 1 TABLET BY MOUTH TWICE A DAY FOR 10 DAYS 08/23 completed Not Available Not Available Not Available bupropion HCl SR 200 mg tablet,12 hr sustained-r elease TAKE 1 TABLET BY MOUTH EVERY DAY 03/31 completed Not Available Not Available Not Available escitalopra m 10 mg tablet TAKE 1 TABLET BY MOUTH EVERY DAY 08/23 completed Not Available Not Available Not Available escitalopra m 20 mg tablet Take 1 tablet every day by oral route. active Not Available Not Available No t Available bupropion HCl XL 150 mg 24 hr tablet, extended release TAKE 1 TABLET BY MOUTH EVERY DAY 05/10 completed Not Available Not Available Not Available escitalopra m 5 mg tablet TAKE 1 TABLET BY MOUTH EVERY DAY 05/15 completed Not Available Not Available Not Available chlorhexidi ne gluconate 0.12 % mouthwash RINSE 15 ML S TWICE DAILY AFTER BREAKFAST /BEFORE BEDTIME FOLLOWING BRUSHING AND FLOSSING 05/05 completed Not Available Not Available Not Available magnesium qd 08/23 completed Not Available Not Available Not Available Fish Oil qd 05/10 completed Not Available Not Available Not Available Vitamin D3 qd 05/10 completed Not Available Not Available Not Available ProAir HFA PRN 05/04 completed Not Available Not Available Not Available levocetiriz ine 5 mg tablet 05/05 completed Not Available Not Available Not Available Gavilax 17 gram/dose oral powder 17 G BY MOUTH DAILY 08/23 completed Not Available Not Available Not Available astaxanthin qd 05/05 completed Not Available Not Available Not Available Vitals Date Recorded Body height Body mass index (BMI) Body weight Heart rate Oxygen saturation Oxygen saturation in Arterial blood by Pulse oximetry Systolic blood pressure Diastolic blood pressure Provider Name and Address Organization Details Last Updated DateTime 5 160.02 cm 22 kg/m2 93328.8 9 g 72 /min 100 % 100 % 110 mm[Hg] 72 mm[Hg] Ana Alvarado [facility] 5 10:40:10 Social History Question Answer Notes LastModified by Organizat ion Details LastModified Time Tobacco Smoking Status Former Smoker Not Available [facility] 06/02/2020 03:36:23 What Was The Date Of Your Most Recent Tobacco Screening? 08/23/2024 [email or web address] Information not available 08/23/2024 How Many Years Have You Smoked Tobacco? 15 [id number] Information not available 06/02/2020 Do You Or Have You Ever Used Any Other Forms Of Tobacco Or Nicotine? No Information not available 09/08/2023 Sex: Unknown Functional Status None recorded. Mental Status None recorded. Family History Relationship Description Onset Age of this Age Resolved Age Notes LastModified by Organization Details LastModified Time Mother Asthma [email or web address] Not available 10/2018 13:33:50 Mother Disorder of thyroid gland [email or web address] Not available 2018 13:33:50 Father Diabetes mellitus 35 [email or web address] Not available 2018 13:33:50 Father Disorder of thyroid gland [email or web address] Not available 2018 13:33:50 Medical History Condition Response Coronary Artery Disease N Gout N Other N Kidney Stones N Blood Diseases N Blood Transfusion N Breast Cancer N Lung Disease N Depression N COPD N Defects or Inherited Disease N Anxiety Disorder N Muscle, Joint, or Bone Problems N Obesity N Vision or Eye Problems N Arthritis N Infertility N Polyps N Mental Disorder N Cancer N Stroke N Varicosities N Endometriosis N Bladder or Kidney Problems N High Cholesterol N Liver Disease N Fibromyalgia N Headaches N Kidney Disease N Allergies/Hayfever N Heart Problems N Hospitalizations N Thyroid Problems N GI Problems N Eating Disorder N Skin Problems N Anemia N MRSA exposure N Constipation N Mental Illness N Diabetes N Ovarian Cancer N Seizures/Epilepsy N Tuberculosis N Congestive Heart Failure (CHF) N Eczema N Abuse/Domestic Violence N Diverticulitis N Asthma Y Reflux/GERD N Hepatitis N Heart Disease N Pulmonary Embolism N Hypertension N Chicken Pox N Autism Spectrum Disorder (ASD) N Osteoporosis N Gynecological History Statement/Question Response Abnormal Pap N Sexually Active? N IUD Menses Monthly Y Current Control Method IUD Most Recent Mammogram 05/07/2024 Age at Menarche 14 Obstetrics History GPAL:G 0 P 0 0 0 0 Immunizations Vaccine Type Date Status Note Provider Nam e and Address Organization Details Recorded Time Tdap 9 completed October LISA Manzanares [address] [place] [address], [place], [address], [facility] 04/27/2018 13:47:43 Influenza, split virus, quadrivalent, preservative 2 completed BRANDIE rao [facility] 09/08/2023 09:07:22 influenza, unspecified formulation 4 completed Ana rao [facility] 05/08/2024 12:13:01 SARS-COV-2 (COVID-19) vaccine, UNSPECIFIED 4 completed Ana Cedeno maira, [facility] 05/08/2024 12:13:08 Tdap 0 completed No Clemens maira, [facility] 05/08/2020 08:28:19 Influenza, split virus, quadrivalent, preservative 0 completed BRANDIE LOWE maira [facility] 09/08/2023 09:07:22 COVID-19, mRNA, LNP-S, PF, 30 mcg/0.3 mL dose 1 completed BRANDIE LOWE maira [facility] 09/08/2023 09:07:22 COVID-19, mRNA, LNP-S, PF, 30 mcg/0.3 mL dose 1 completed BRANDIE LOWE [facility] 09/08/2023 09:07:22 Past Encounters Encounter ID Performer Location Encounter Start Date Encounter Closed Date Diagnosis/Indication Diagnosis SNOMED-CT Code Diagnosis ICD10 Code Diagnosis Note [id number] [facility] [address] [facility] [address] 08/23/2024 10:27:25 08/23/2024 11:16:34 Active or passive immunization 956715929 Z23 will be getting flu shot Adult heal th examination 974187240 Z00.00 BP is excellent todayalrea dy had blood work Depression screening 171 852961 Z13.31 SCREENING NEGATIVE Perimenopa usal disorder 504216553 N95.8 will set up with lab work to determine if she is in missael-menop ause or any other abnormalit ies Gastritis 5744396 K29.60 stable Loss of hair 274312991 L 63.8 will set up with additional lab work Health Concerns Section Related Observation LastModified by Organization Detai ls LastModified Time None Recorded Concern Status LastModified by Organization Details LastModified Time None Recorded Payers Encounter Date Sequence Insurance Name Policy Number Policy Beaulieu Covered Member ID Beaulieu Member ID Guarantor Name 08/23/2024 1 Kaymu [id number] Yudi Gill [id number] Yudi adamson Notes Date Note Type Note Provider Name a nd Address Organization Details Recorded Time text/html Annual WellnessReported bypatient.Diet and Nutrition:healthy diet; discussed vitamin and supplement use; discussed portion control; discussed maintaining calcium balance; discussed diet improvement Fracture Risk:no history of fractures; no recent explained fracture; no sudden unexplained fractures; no previous musculoskeletal injuries Physical Activity:exercises on a regular basis; recent increase in physical activity; good physical condition Additional Lifestyle Factors:no tobacco use; drinks alcohol (mild-moderate) Depression Risk:never feels sad, empty, or tearful; no loss of interest in activities; no significant changes in weight; no sleep disturbances or insomnia; no agitation; no loss of energy; no feelings of worthlessness or guilt; no thoughts of suicide; no history of depression; no history of mood disorders Hearing:no loss of hearing Vision:no vision problems the patient had a bacteria infection in [place] had strep in the fallthen had norovirus the last month feeling okay has been seeing therapy/psychiatrist who are taking out ofthe patient reports she is having a lot of hair loss, is using asha topical solution the patient reports that she finished her PT for the left groin painthe patient reports that is has helped, significantly improved from previous the patient has a trip to [place] medication up-to-date on list still getting the MM and MRI due to cystic changes in her breast, everything has been normal JOSE CARLOS WEEKS [address] [place] [address], [phone], [facility] 08/23/2024 11:09:46 OBGyn Episode No OBEpisode recorded.
--- OUTSIDE RECORDS SUMMARY | 2024-09-02 06:57 | XMS_ITS | Data Portability ---
Author Organization [facility] Home Service Address [address] [place] [address] Assessment Encounter Date Assessment Date Assessment LastModified by Organization Details LastModified Time 05/15/2023 05/15/2023 The patient denies little pleasure in activities they find enjoyable, feeling depressed, difficulties sleeping, feeling tired or having little energy, change in appetite, feeling guilty, overwhelmed or unmotivated. The patient denies suicidal ideation, thoughts of hurting themselves or others. Their mood is appropriate, they show good judgement and clear understanding of the conversation. They are orientated to time, place and person. They are not expressing any concerning thoughts or actions that would need further investigation and treatment for mental health. [email or web address] Not available 05/15/2023 09:03:55 09/08/2023 09/08/2023 Patient agreed and verbally consents to this audio and video Telehealth appt via a secure platform [email or web address] Not available 09/08/2023 09:37:58 Plan of Treatment Reminders Order Date Submit Date Provider Last Modified By Organization Details Last Modified Time Details Appointments ANNUAL EXAM 2025 09:30A M JOSE CARLOS WEEKS Not available Not available Not available Lab gastroint estinal pathogens panel, PCR, stool 2022 023 [facility], [address] [place] [address], [id number], 04/06/2023 12:58:10 CMP, serum or plasma 2022 023 [facility], [address] [place] [address], [id number], 04/03/2023 11:20:30 amylase + lipase, serum 2022 023 [facility], [address] [place] [address], [id number], 03/31/2023 11:40:30 gamma-glu tamyl transfera se (ggt), serum 2022 023 [facility], [address] [place] [address], [id number], 03/31/2023 11:40:30 ESR (erythroc yte sedimenta tion rate), blood 2022 023 [facility], [address] [place] [address], [id number], 03/31/2023 11:40:30 C-reactiv e protein, quantitat tomasa, serum or plasma 2022 023 [facility], [address] [place] [address], [id number], 03/31/2023 11:40:30 calprotec tin, stool 2022 023 [facility], [address] [place] [address], [id number], 04/12/2023 12:36:21 estradiol , serum 2023 024 [facility], [address] [place] [address], [id number], 09/18/2023 11:30:14 progester one, serum 2023 024 [facility], [address] [place] [address], [id number], 09/08/2023 09:39:22 lh + FSH, serum 2023 024 [facility], [address] [place] [address], [id number], 09/08/2023 09:39:22 estrogen, total, serum 2023 024 [facility], [address] [place] [address], [id number], 09/15/2023 11:34:22 prolactin , serum 2023 024 [facility], [address] [place] [address], [id number], 09/11/2023 12:10:52 testoster one, total, serum 2023 024 [facility], [address] [place] [address], [id number], 09/14/2023 12:35:14 TSH + free T4, serum 2023 024 [facility], [address] [place] [address], [id number], 09/08/2023 09:39:22 iron + TIBC + ferritin, serum 2024 025 [facility], [address] [place] [address], 89773, 08/23/2024 10:58:55 PTH (parathyr oid hormone), intact + calcium, serum or plasma 2024 025 [facility], [address] [place] [address], 39[address], 08/23/2024 10:58:55 estradiol , serum 2024 025 [facility], [address] [place] [address], [id number], 08/23/2024 10:58:55 progester one, serum 2024 025 [facility], [address] [place] [address], 965[address], 08/23/2024 10:58:55 lh + FSH, serum 2024 025 [facility], [address] [place] [address], [id number], 08/23/2024 10:58:55 estrogen, total, serum 2024 025 [facility], [address] [place] [address], [id number], 08/23/2024 10:58:55 prolactin , serum 2024 025 [facility], [address] [place] [address], [id number], 08/23/2024 10:58:55 testoster one, total, serum 2024 025 [facility], [address] [place] [address], [id number], 08/23/2024 10:58:55 CMP, serum or plasma 2024 025 [facility], [address] [place] [address], [id number], 08/23/2024 10:58:54 CBC w/ auto diff 2024 025 [facility], [address] [place] [address], [id number], 08/23/2024 10:58:55 lipid panel, blood 2024 025 [facility], [address] [place] [address], 22407, 08/23/2024 10:58:55 vitamin D, 25-hydrox y, total, serum 2024 025 [facility], [address] [place] [address], [place], [address], 08/23/2024 10:58:55 TSH + free T4, serum 2024 025 [facility], [address] [place] [address], 22526, 08/23/2024 10:58:55 hemoglobi n A1c, QN, blood 2024 025 [facility], [address] [place] [address], [place], [address], 08/23/2024 10:58:54 vitamin B12 + folate, serum or blood 2024 025 [facility], [address] [place] [address], [place], [address], 08/23/2024 10:58:55 Referral physical therapist referral 2022 023 [facility], [address] [place] [address], [address], 05/16/2023 13:59:24 sports medicine referral - had 6 weeks of PT for left groin pain and left hip pain [facility]23 [facility], [address] [place], [address], 09/11/2023 08:19:04 Procedures None recorded. Surgeries None recorded. Imaging None recorded. Medication Orders escitalop genie 5 mg tablet 2022 023 [email or web address] 8 [id number], [address] [place], [address], 05/15/2023 08:57:47 meloxicam 15 mg tablet 2022 023 [email or web address] 8 [id number], [address] [place], [address], 05/15/2023 08:58:13 escitalop genie 10 mg tablet 2022 023 rtryba [id number], [address] [place], [address], 08/23/2024 10:36:02 omeprazol e 20 mg capsule,d elayed release 2024 025 [id number], [address] [place], [address], 08/23/2024 10:57:37 Patient TargetsNo targets recorded. Patient Instructions Encounter Date Encounter Id Patient Instructions Last Modified By Organization Details Last Modified Time 03/31/2023 [id number] pulse oximetry* [email or web address] Not available 03/31/2023 11:36:00 Reason for Referral Physical Therapist Referral for Left inguinal hernia groin muscle pain, left side, with leg lifts Referring Physician: Ebony Masters, Internal Medicine, Encounter Date: 05/15/2023 had 6 weeks of PT for left g roin pain and left hip pain Referring Physician: Ebony Masters, Internal Medicine, Encounter Date: 09/08/2023 Results Created Date Observation Date Name Description Value Unit Range Abnormal Flag Note LastModifiedBy Organization Detail LastModifiedTime 03/31/2003/31/2023 pulse oxime try* Result 99 Not Available [facility] [address], [place], [address], 03/18/2023 09:07:32 09/19/19 24 09/05/2023 MAMMO , scree lucretia, digit al, bilat eral No observ ation record ed. [facility] [address] [place], [address], 08/23/2024 11:03:28 10/26/19 24 10/19/2023 MRI, breas t, bilat eral, w/wo contr ast No observ ation record ed. [facility] ([facility] Records[facility] [address] [place], [address], 08/23/2024 11:03:28 11/03/19 24 11/03/2023 US, shahrammandy t No observ ation record ed. [address] [place], [address], 08/23/2024 11:03:28 11/16/19 24 11/16/2023 MRI, hip, w/ contr ast No observ ation record ed. [facility] (Medical Records) [address] [place], [address], 08/23/2024 11:03:28 12/12/19 24 12/12/2023 fluor oscop y (PROC ) No observ ation record ed. [facility] (Medical Records) [address] [place], [address], 08/23/2024 11:03:28 05/07/20 24 05/07/2024 MAMMO , scree lucretia, digit al, bilat eral No observ ation record ed. [address] [place], [address], 08/23/2024 11:03:28 Result Notes None recorded. Problems Name Problem SNOMED Code Status Onset Date Resolution Date Notes Provider Name and Address Organization Details Recorded Time Asthma 792792710 Active 2017 Not Available [facility] 3 11:47:12 Gastriti s 5004120 Active 2017 Not Available [facility] 3 11:47:13 Degenera tive disorder of macula 706892594 Active 2017 Not Available [facility] 3 11:47:13 Anxiety 95831160 Active 2017 mild/ controll ed Not Available [facility] 3 11:47:13 Insomnia 052835804 Active 2017 mild/con trolled Not Available [facility] 3 11:47:12 Thyroid nodule 872777776 Completed 201704/25/2018 Neg bx over 10 years ago per pt. Cari rao [facility] 8 16:20:51 Gastroes ophageal reflux disease 003876851 Active 2018 Not Available [facility] 3 11:47:12 Eczema 09115857 Active 2021 Not Available [facility] 3 11:47:13 Pain of left shoulder joint 5557556587 6875825 Active 2022 Not Available [facility] 3 11:47:12 Inguinal pain 875938862 Active 2022 Not Available [facility] 3 11:47:12 Left inguinal hernia 176103899 Active 2022 JOSE CARLOS WEEKS [address] [place], [address], 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 4 09:36:59 Loss of hair 188267058 Active 2024 JOSE CARLOS WEEKS [address] [place], [address], [facility] 5 10:56:35 Notes:allergies Problem Notes None recorded. Procedures Surgical History Date Name Laterality Status Provider Name and Address Organization Details Recorded Time 4 Most Recent Mammogram completed Ana Cedeno [facility] 05/08/2024 08:53:13 Imaging Results Imaging Date Name Status LastModified by Organiz [facility] Details LastModified Time 09/05/2023 MAMMO, screening, digital, bilateral completed [facility] [address] [place] [address] [place], [address], 08/23/2024 11:03:28 10/19/2023 MRI, breast, bilateral, w/wo contrast completed [facility] (Medical Records) [address] [place], [address], 08/23/2024 11:03:28 11/03/2023 US, breast completed [address] [place], [address], 08/23/2024 11:03:28 11/16/2023 MRI, hip, w/ contrast completed [facility] (Medical Records) [address] [place], [address], 08/23/2024 11:03:28 12/12/2023 fluoroscopy (PROC) completed [facility] (Medical Records) [address] [place], [address], 08/23/2024 11:03:28 05/07/2024 MAMMO, screening, digital, bilateral completed [address] [place], [address], 08/23/2024 11:03:28 Procedure Notes None recorded. Medical Equipment None Reported. Allergies Allergen ID Allergen Name Allergen Category Reaction Reaction Severity Criticality Documentation Date Start Date Code Code System Note Provider Name and Address Organization Details Recorded Time 2343 Wellbutri n medicatio n hives Not available Not available 04/25/2018 66207 RxNorm 300 mg dose only JOSE CARLOS WEEKS [address] [place] [address], [phone], [facility] 09:23:20 Medications Name Sig Start Date Stop [...] and Address Organization Details Last Updated DateTime 3 160.02 cm 24.1 kg/m2 10890.5 6 g 67 /min 100 % 100 % 118 mm[Hg] 60 mm[Hg] JOSE CARLOS WEEKS [address] [place], [address] 3 10:32:35 Date Recorded Body height Body mass index (BMI) Body weight Heart rate Oxygen saturation Oxygen saturation in Arterial blood by Pulse oximetry Systolic blood pressure Diastolic blood pressure Provider Name and Address Organization Details Last Updated DateTime 3 160.02 cm 24.1 kg/m2 61790.5 6 g 80 /min 100 % 100 % 112 mm[Hg] 76 mm[Hg] Madie Antony [facility] 3 11:24:18 Date Recorded Body height Body mass index (BMI) Body weight Heart rate Oxygen saturation Oxygen saturation in Arterial blood by Pulse oximetry Systolic blood pressure Diastolic blood pressure Provider Name and Address Organization Details Last Updated DateTime 3 160.02 cm 26.7 kg/m2 94462.7 3 g 71 /min 98 % 98 % 110 mm[Hg] 72 mm[Hg] Hayley Velarde [facility] 3 08:56:50 Date Recorded Body height Body mass index (BMI) Body weight Heart rate Oxygen saturation Oxygen saturation in Arterial blood by Pulse oximetry Systolic blood pressure Diastolic blood pressure Provider Name and Address Organization Details Last Updated DateTime 5 160.02 cm 22 kg/m2 37956.8 9 g 72 /min 100 % 100 % 110 mm[Hg] 72 mm[Hg] Ana Cedeno [facility] 5 10:40:10 Social History Question Answer Notes LastModified by Organizat ion Details LastModified Time Tobacco Smoking Status Former Smoker Not Available [facility] 06/02/2020 03:36:23 What Was The Date Of Your Most Recent Tobacco Screening? 08/23/2024 [email or web address] Information not available 08/23/2024 How Many Years Have You Smoked Tobacco? 15 [id number] Information not available 06/02/2020 Do You Or [...] Tdap 9 completed October LISA Manzanares [address] [place] [address], [address], [facility] 04/27/2018 13:47:43 Influenza, split virus, quadrivalent, preservative 2 completed BRANDIE rao [facility] 09/08/2023 09:07:22 influenza, unspecified formulation 4 completed Ana rao [facility] 05/08/2024 12:13:01 SARS-COV-2 (COVID-19) vaccine, UNSPECIFIED 4 completed Ana rao [facility] 05/08/2024 12:13:08 Tdap 0 completed No rao [facility] 05/08/2020 08:28:19 Influenza, split virus, quadrivalent, preservative 0 completed BRANDIE rao [facility] 09/08/2023 09:07:22 COVID-19, mRNA, LNP-S, PF, 30 mcg/0.3 mL dose 1 completed BRANDIE rao [facility] 09/08/2023 09:07:22 COVID-19, mRNA, LNP-S, PF, 30 mcg/0.3 mL dose 1 tiffanie rao [facility] 09/08/2023 09:07:22 Past Encounters Encounter ID Performer Location Encounter Start Date Encounter Closed Date Diagnosis/Indication Diagnosis SNOMED-CT Code Diagnosis ICD10 Code Diagnosis Note [id number] October [facility] [address] [facility],[place] [address] 04/27/2018 13:29:56 04/27/2018 14:10:52 Adult health examination 686220523 Z00.01 mother with breast cancer age 52 Asthma 252019454 J45.90 9 stable Body mass index 25-29 - overweight 703764646 Z68.26 slightly overweight diet and exercise Gastroesop hageal reflux disease 955893369 K21.9 stable Anxiety 35792449 F41.9 well controlled with clonazepam Upper resp iratory infection 36994727 J06.9 [id number] Stefani Garcia NP, S [facility] [address] [place] [address],[place] [address] 10/26/2018 13:43:14 10/30/2018 14:18:12 Asthma 606110543 J45.909 Anxiety 77412532 F41.9 Acid reflux 774347318 K2 1.9 prn zantac [id number] October [facility] [address] [facility],[place] [address] 05/03/2019 13:31:22 05/03/2019 14:32:49 Adult health examination 458376538 Z00.00 mother with breast cancer age 52 Active or passive immunization 320300447 Z23 will have flu shot at work flu clinic on the 15 of may Anxiety 04423110 F41.9 uses clonazepam maybe once or twice a week Asthma 553158781 J45.90 9 stable Insomnia 884797060 G47.0 0 uses clonazepam once a week Constipation 23677878 K5 9.00 Gastritis 9493934 K29.70 ranitidine on recall, will rx omeprazole Allergic rhinitis 303825 04 J30.9 Gastroesop hageal reflux disease 443879780 K21.9 stable Vitamin D deficiency 347 23050 E55.9 Body mass index 25-29 - overweight 585495695 Z68.26 slightly overweight diet and exercise Venereal d isease screening 770796276 Z11.3 [id number] JOSE CARLOS WEEKS [facility] [address] [facility],[place] [address] 05/04/2020 09:09:12 05/04/2020 09:41:26 Asthma 690698506 J45.909 stable Active or passive immunization 525043385 Z23 send for booster Adult heal th examination 332924459 Z00.00 BP is excellent today Screening for cardiovascular system disease 970465250 Z13.6 [place] [id number] JOSE CARLOS WEEKS [facility] [address] [facility],[place] [address] 05/05/2021 08:51:45 05/05/2021 10:22:55 Active or passive immunization 300093671 Z23 will be getting flu shot Adult heal th examination 139975685 Z00.00 BP is excellent today Weight gain 2522927 R63. 5 will fu with lab work [id number] JOSE CARLOS WEEKS [facility] [address] [facility], [place] [address] 06/29/2021 10:19:04 07/02/2021 15:38:28 Acute severe exacerbation of asthma 593036013 J45.31 will start on pred, abx and cough suppressan t her inhaler is up to date Asthma 723653127 J45.21 will treat for acute exacerbati on Acute bronchitis 2636649 2 J20.8 given instructio ns how to take Cough 81350979 R05.1 no improvemen t and limitied sleep with OTC meds, will give oral liquid [id number] JOSE CARLOS WEEKS [facility] [address] [facility] [address] 09/07/2021 08:31:50 09/07/2021 14:40:53 Generalized anxiety disorder 55991377 F41.1 will start at low dose of the wellbutrin at 300 mg she gets hivesif she develops hives again will switch to busparpati ent concerned about weight gain [id number] JOSE CARLOS WEEKS [facility] [address] [facility] [address] 05/10/2022 08:58:09 05/10/2022 13:46:04 Active or passive immunization 170275462 Z23 will be getting flu shot Adult heal th examination 075186393 Z00.00 BP is excellent today Eczema 51432023 L30.8 with fu with betamethas one topical for atophic dermatitis Anxiety 61714999 F41.1 will fu with increase 200 mg, stay away from 300 mg due to hives at high doses [id number] JOSE CARLOS WEEKS [facility] [address] [facility],[place] [address] 12/02/2022 10:22:57 12/05/2022 09:08:37 Constipation 94297664 K59.09 stable Insomnia 879273992 G47.0 0 stable Asthma 377259560 J45.21 stablestab le on singulair with albuterol Pain of le ft shoulder joint 5321264743 1800001 M25.512 has been seeing a chiropract or; feeling wellworkin g on therapyred uced weight on that side Anxiety 66053616 F41.1 switch to lexapro; reduce bupropion level [id number] JOSE CARLOS WEEKS [facility] [address] [facility], [place] [address] 03/31/2023 11:10:27 03/31/2023 14:48:23 Anxiety 29066110 F41.1 doing much better per patient Asthma 258349046 J45.21 stablestab le on singulair with albuterol Gastroesop hageal reflux disease 692258314 K21.9 stable Gastritis 9370614 K29.60 stable Constipation 25225414 K5 9.09 stable Diarrhea 39655789 A07.8 will set up lab work and GI stool panel Inguinal pain 977224049 R10.2 [id number] JOSE CARLOS WEEKS [facility] [address] [facility], [place] [address] 05/15/2023 08:48:08 05/16/2023 13:59:24 Adult health examination 755422650 Z00.00 BP is excellent todayalrejunito singh had blood work Diarrhea 85877257 A07.8 never called her for the CT abdomen and pelvis Left inguinal hernia 236 684959 K40.90 agreed to physical therapy referral [id number] JOSE CARLOS WEEKS [facility] [address] [facility] [address],[place] [address] 09/08/2023 09:06:56 09/11/2023 11:04:54 Perimenopausal disorder 785795697 N95.8 will set up with lab work to determine if she is in missael-menop ause or any other abnormalit ies Inguinal pain 037534733 R10.2 per PT recommenda tion will set up with sports medicine for consult [id number] JOSE CARLOS WEEKS Internal [facility] [address] [facility] [address],[place] [address] 08/23/2024 10:27:25 08/23/2024 11:16:34 Active or passive immunization 915133911 Z23 will be getting flu shot Adult heal th examination 837360509 Z00.00 BP is excellent todayalrea dy had blood work Depression screening 171 091797 Z13.31 SCREENING NEGATIVE Perimenopa usal disorder 685373499 N95.8 will set up with lab work to determine if she is in missael-menop ause or any other abnormalit ies Gastritis 2056216 K29.60 stable Loss of hair 461313130 L 63.8 will set up with additional lab work Health Concerns Section Related Observation LastModified by Organization Detai ls LastModified Time None Recorded Concern Status LastModified by Organization Details LastModified Time None Recorded Advance Directives Directive None Recorded Payers Encounter Date Sequence Insurance Name Policy Number Policy Beaulieu Covered Member ID Beaulieu Member ID Guarantor Name 12/02/2022 1 [facility] [id number] Yudi Dumonto Jairo [id number] Yudi Bautista-Kalyani io 03/31/2023 1 [employer] [id number] Yudi Dumonto Jairo [id number] Yudi Bautista-Kalyani io 05/15/2023 1 [employer] [id number] Yudi Dumonto Jairo [id number] Yudi Bautista-Kalyani io 09/08/2023 1 [employer] [id number] Yudi Gibbs Bautista Jairo [id number] Yudi Bautista-Kalyani io 08/23/2024 1 [employer] [id number] Yudi Gibbs Michele Gill [id number] Yudi Almaz io Notes Date Note Type Note Provider Name a nd Address Organization Details Recorded Time 3 text/html BP is excellent anxiety: the patient reports that she would like to switch to lexapro from bupropionwill go down; has the 150 mg will start going down ADD: the patient reports that is having issues with motivation and concentration at workthe patient had a recent colposcopy yesterdaystill had results with mild atypical cells asthma: stablestill using the singulair which is helpful left shoulder pain improvedalmost complete resolution with chiropractor JOSE CARLOS WEEKS [address] [place], [address], [facility] 12/02/2022 10:53:57 3 text/html c/o GI bloating the patient reports that on 02/28 she was at [place]; had vomiting and diarrhea recurrentlythe patient is having bloating, diarrhea, pain stopped the patient reports having a weekthe patient is still having diarrhea, UC gave her immodium and dicyclomine agreed to lab work and stool culture JOSE CARLOS WEEKS [address] [facility], [place], [address], [facility] 03/31/2023 13:34:14 3 text/html Annual WellnessReported bypatient.Diet and Nutrition:healthy diet; [...] disorders Hearing:no loss of hearing Vision:no vision problems; does not wear glasses or contacts sees an eye doctor (once per year) JOSE CARLOS WEEKS [address] [place], [address], [facility] 05/15/2023 09:15:38 4 text/html f/u appointment The patient is participating in this appointment via telemedicine communication with a phone call/video calling service ([place])The patient consents to use of these platforms in place of an in-person appointment due to either sick symptoms the patient is presenting with or current office closure due to COVID exposure in order to keep our office staff and patients safe the patient reports she is still having inguinal and groin painthe patient did her PT courses without any changes in her discomfort the patient did get an appointment with chiropractor as well PT recommended f/u with sports medicinewill send in referral for the patient to have a consult the patient reports that she is in missael-menopauseshe reports she is having 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, 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 09/08/2023 09:42:37 5 text/html Annual WellnessReported bypatient.Diet and Nutrition:healthy diet; [...] previous the patient has a trip to [place] medication up-to-date on list still getting the MM and MRI due to cystic changes in her breast, everything has been normal JOSE CARLOS WEEKS [address] [place] [address], [place], [id number], [facility] 08/23/2024 11:09:46 OBGyn Episode No OBEpisode recorded.
[2024-09-02 07:12] LABS: MANUAL DIFF FLAG NO
[2024-09-02 08:08] LABS: Basophils Percent Auto 0.7 % (0-2); Eosinophils Absolute Auto 0.2 X10*3/uL (0.0-0.4); Eosinophils Percent Auto 2.8 % (0-4); Hemoglobin 14.1 g/dl (12.0-16.0); Imm Gran Abs Auto 0.05 X10*3/uL (0.00-0.03); Imm Gran Pct Auto 0.9 % (0.0-0.4); Lymphocytes Absolute Auto 1.7 X10*3/uL (1.2-4.9); Lymphocytes Percent Auto 30.9 % (20-40); Mean Corpuscular HGB Conc 33.6 g/dl (31.0-35.0); Mean Corpuscular Hemoglobin 32.2 pg (27.0-33.0); Mean Corpuscular Volume 95.9 fL (80.0-98.0); Mean Platelet Volume 8.9 fL (9.4-12.3); Monocytes Absolute Auto 0.3 X10*3/uL (0.1-1.2); Monocytes Percent Auto 5.5 % (2-11); Neutrophils Absolute Auto 3.2 x10*3/uL (2.0-8.3); Neutrophils Percent Auto 59.2 % (45-73); Platelet Count 377 X10*3/uL (160-400); Red Blood Count 4.38 X10*6/uL (4.20-5.50); Red Cell Distribution Width 12.9 % (11.0-16.0); White Blood Count 5.4 X10*3/uL (4.8-10.8)
[2024-09-02 08:54] LABS: Alanine Aminotransferase 22 U/L (0-31); Alkaline Phosphatase 31 U/L (39-117); Anion Gap 10 (12-20); Aspartate Amino Transferase 24 U/L (5-31); Bilirubin Total 0.9 mg/dL (0.0-1.0); Blood Urea Nitrogen 13 mg/dL (9-16); Calcium 8.8 mg/dL (8.4-10.2); Carbon Dioxide 24 mmol/L (22-29); Chloride 107 mmol/L (96-108); Cholesterol 165 mg/dL (<200); Estimated Glomerular Filt Rate > 60; Glucose Random 81 mg/dL (60-115); HDL Cholesterol 53 mg/dL (>40); Iron 81 mcg/dL (30-160); LDL Cholesterol Calculated 101 mg/dL (<100); Percent Iron Saturation 32 % (15-50); Potassium 4.1 mmol/L (3.3-5.1); Sodium 137 mmol/L (135-145); Total Iron Binding Capacity 253 mcg/dL (228-428); Total Protein 6.9 g/dL (6.5-8.0); Triglycerides 55 mg/dL (<150); Unsaturated Iron Binding 172 ug/dL
[2024-09-02 09:00] LABS: Estimated Average Glucose 85 mg/dL; Hemoglobin A1c % 4.6 % (<6.0); Total Hemoglobin (HGBA1C) 3748.9566 umol/L
[2024-09-02 09:18] LABS: Folate 13.5 ng/mL (> or = 4.0)
[2024-09-02 09:20] LABS: Free T4 (Free Thyroxine) 0.97 ng/dL (0.71-1.85); Thyroid Stimulating Hormone 0.51 uIU/mL (0.32-4.0); Vitamin D 25-OH Total 47.8 ng/mL (>30)
[2024-09-02 13:03] LABS: Vitamin B12 464 pg/mL (200-900)
[2024-09-04 16:33] LABS: Follicle Stimulating Hormone 10.4 mIU/mL; Lutenizing Hormone 7.2 mIU/mL
[2024-09-06 23:03] LABS: Estrogen 199 pg/mL
[2024-09-09 18:39] LABS: Progesterone 4.7 ng/mL
[2024-09-10 02:09] LABS: Estradiol Ultra Sensitive 88 pg/mL
[2024-09-11 18:09] LABS: Testosterone, Total 36 ng/dL (2-45)
== END 2024-09-02 06:55 | disposition home or self-care (01) ==
LOC: HO.LAB 06:54
PROVIDERS: PCP Internal Medicine; Visit Provider Physician Assistant
DX: Z00.00 Encounter for general adult medical examination without abnormal findings (principal); N95.8 Other specified menopausal and perimenopausal disorders; L63.8 Other alopecia areata; Z13.1 Encounter for screening for diabetes mellitus
CPT/HCPCS: 36415; 80053; 80061; 82306; 82607; 82670; 82672; 82746; 83001; 83002; 83036; 83540; 83970; 84144; 84146; 84403; 84439; 84443; 85025

== ENCOUNTER 2024-09-09 07:53 | Outpatient (REF) | payer OTHER, SELFPAY | END 2024-09-09 07:54 | disposition home or self-care (01) | LOC: HO.MAMMO 07:53 | PROVIDERS: PCP Internal Medicine; Visit Provider Internal Medicine | DX: Z12.31 Encounter for screening mammogram for malignant neoplasm of breast (principal) | CPT/HCPCS: 77063; 77067 ==

== ENCOUNTER → 2024-09-09 08:00 | Outpatient (BNV) | payer OTHER, SELFPAY | PROVIDERS: PCP Internal Medicine; Visit Provider Internal Medicine | DX: Z12.31 Encounter for screening mammogram for malignant neoplasm of breast (principal) | CPT/HCPCS: 77063; 77067 ==

== ENCOUNTER 2024-10-03 15:23 | Outpatient (AMB) | payer OTHER, SELFPAY ==
--- NOTE | 2024-10-03 15:25 | A.OFFVIS_ITS ---
Vital Signs 10/03/24 15:33 Height 5 ft 2 in Weight 127 lb BMI 23.2 BP 114/54 L Blood Pressure Location Lt brachial Position Sitting Pulse 62 Intake Visit Reasons: 6 month follow up, breast exam Intake Note: Patient is seen in office for 6 month follow up visit, breast exam. Pt c/o: MRI:10/19/23(DUE) mm:09/09/24 Song Plugger Required: No Family Assistant: Family Assistant Present Accompanied by: Self / Same As Patient Allergies No Known Allergies Allergy (Verified 10/03/24 15:26) HPI Comments Details: 48-year-old female patient with a known strong family history of breast cancer including her mother and maternal aunt, determined to be high risk for breast cancer due to her family history with a Tyrer-Cuzick remaining lifetime risk of breast cancer of 25%. She has been followed by Dr. Griffin and Bk for this high risk and has previously undergone yearly breast MRI and mammograms. [employer] testing performed by Dr. Bourgeois is reported to be negative for any clinically significant genetic mutations or mutations of unknown significance. Breast MRI on 10/19/2023 revealed an enhancing mass the 1 o'clock position right breast 4 cm from the nipple measuring 7 mm, increased in size from the previous year's MRI. This was felt to be suspicious (BI-RADS 4 right breast ) and focused ultrasound was recommended. This was performed on 11/03/2023. The findings were felt to be an intramammary lymph node, probably benign (BI-RADS 3). Six-month follow-up mammogram performed on 05/07/2024 revealed no suspicious findings. She is now due for an annual breast MRI. Most recent mammogram dated 09/09/2024 revealed no mammographic evidence of malignancy (BI-RADS 1). She denies any palpable mass, skin change, nipple discharge or other breast symptoms. She is with 1 ab. Menarche at 14 years old, LMP on 09/11/2022. 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 Gender identity: Female Female Reproductive History Menstrual Age of Menarche: 14 Review of Systems Const All systems reviewed & are unremarkable except as noted in HPI and below Denies chills, Denies fever(s), Denies headache(s), Denies poor appetite and Denies weakness ENT Denies headache(s) Card Denies chest pain, Denies irregular heart rhythm, Denies palpitations and Denies dyspnea Resp Denies cough, Denies excessive phlegm production and Denies dyspnea GI Denies abdominal pain, Denies bloating, Denies change in bowel habits, Denies constipation, Denies heartburn, Denies diarrhea, Denies nausea and Denies vomiting Denies urinary frequency Musc Denies back pain, Denies muscle weakness and Denies numbness Skin/Breast Denies changing lesions and Denies unusual bruising Neuro Denies headache(s), Denies numbness, Denies paresthesias and Denies weakness Psych Denies anxiety and Denies depression Endo Denies palpitations Rich/Lymph Denies lymphadenopathy Physical Exam Const General: cooperative and no acute distress Nutritional Appearance: well nourished Orientation/consciousness: patient oriented x3 Limitations: no limitations HEENT Head: Yes normocephalic and Yes atraumatic Ears: hearing grossly normal bilaterally Chest Other: Bilateral dense breast tissue. Left breast: No skin change, no nipple retraction, no nipple discharge, no palpable mass, no enlarged lymph nodes. Right breast: No skin change, no nipple retraction, no nipple discharge, no palpable mass, no enlarged lymph nodes Resp Effort & Inspection: normal respiratory effort, no audible wheezes, no cough and no respiratory distress Cardio Jugular venous distension: no JVD GI Inspection: Yes normal to inspection Skin Other: Warm, dry, no rash Neuro General: patient oriented x3 Extrem General: Yes no clubbing, cyanosis or edema Assessment & Plan Assessment & Plan (1) At high risk for breast cancer: Code(s): Z91.89 - Other specified personal risk factors, not elsewhere classified Category: Medical (2) Family history of breast cancer: Code(s): Z80.3 - Family history of malignant neoplasm of breast Category: Medical Plan 48-year-old female patient with a strong family history of breast cancer determined to be at high risk for breast cancer with a Tyrer-Cuzick remaining lifetime risk of breast cancer of 25%. Most recent mammogram of 09/09/2024 revealed no mammographic evidence of malignancy (BI-RADS 1). She is now due for her annual breast MRI which will be ordered today. Should follow up in 6 months for routine breast examination. Orders: Orders MR breast BI wo/w con Today Z80.3 - Family history of malignant neoplasm of breast, Z91.89 - Other specified personal risk factors, not elsewhere classified Coding Level of Care Code Est Pt Level 3 (61804) Diagnoses At high risk for breast cancer Z91.89 Family history of breast cancer Z80.3
[2024-10-03 15:33] VITALS: BP 114/54; PULSE 62; BMI 23.2
--- OUTSIDE RECORDS SUMMARY | 2024-10-03 18:53 | XMS_ITS | Data Portability ---
Author Organization [facility], Home Service Address [address] [place] [address] Assessment Encounter Date Assessment Date Assessment LastModified [...] + TIBC + ferritin, serum 2024 025 [facility], [address] [place] [address], [place], [address], 08/23/2024 10:58:55 PTH (parathyr oid hormone), intact + calcium, serum or plasma 2024 025 [facility], [address] [place], [address], 08/23/2024 10:58:55 estradiol , serum 2024 025 [facility], [address] [place] [address], [address], 09/09/2024 12:21:19 progester one, serum 2024 025 [facility], [address] [place] [address], [address], 09/10/2024 13:10:24 lh + FSH, serum 2024 025 [facility], [address] [place] [address], [address], 09/05/2024 12:57:46 estrogen, total, serum 2024 025 [facility], [address] [place] [address], [address], 09/10/2024 13:10:23 prolactin , serum 2024 025 [facility], [address] [place] [address], [address], 08/23/2024 10:58:55 testoster one, total, serum 2024 025 [facility], [address] [place] [address], [address], 09/12/2024 12:33:03 CMP, serum or plasma 2024 025 [facility], [address] [place] [address], [address], 09/03/2024 13:06:16 CBC w/ auto diff 2024 025 [facility], [address] [place] [address], [address], 08/23/2024 10:58:55 lipid panel, blood 2024 025 [facility], [address] [place] [address], [address], 08/23/2024 10:58:55 vitamin D, 25-hydrox y, total, serum 2024 025 [facility], [address] [place] [address], [address], 08/23/2024 10:58:55 TSH + free T4, serum 2024 025 [facility], [address] [place] [address], [address], 08/23/2024 10:58:55 hemoglobi n A1c, QN, blood 2024 025 [facility], [address] [place] [address], [address], 08/23/2024 10:58:54 vitamin B12 + folate, serum or blood 2024 025 [facility], [address] [place] [address], [address], 08/23/2024 10:58:55 estradiol , serum 2023 024 [facility], [address] [place] [address], [address], 09/18/2023 11:30:14 progester one, serum 2023 024 [facility], [address] [place] [address], [address], 09/08/2023 09:39:22 lh + FSH, serum 2023 024 [facility], [address] [place] [address], [address], 09/08/2023 09:39:22 estrogen, total, serum 2023 024 [facility], [address] [place] [address], [address], 09/15/2023 11:34:22 prolactin , serum 2023 024 [facility], [address] [place] [address], [address], 09/11/2023 12:10:52 testoster one, total, serum 2023 024 [facility], [address] [place] [address], [address], 09/14/2023 12:35:14 TSH + free T4, serum 2023 024 [facility], [address] [place] [address], [address], 09/08/2023 09:39:22 gastroint estinal pathogens panel, PCR, stool 2022 023 [facility], [address] [place] [address], [address], 04/06/2023 12:58:10 CMP, serum or plasma 2022 023 [facility], [address] [place] [address], [address], 04/03/2023 11:20:30 amylase + lipase, serum 2022 023 [facility], [address] [place] [address], [address], 03/31/2023 11:40:30 gamma-glu tamyl transfera se (ggt), serum 2022 023 [facility], [address] [place] [address], [address], 03/31/2023 11:40:30 ESR (erythroc yte sedimenta tion rate), blood 2022 023 [facility], [address] [place] [address], [place], [address], 03/31/2023 11:40:30 C-reactiv e protein, quantitat tomasa, serum or plasma 2022 023 [facility], [address] [place] [address], [address], 03/31/2023 11:40:30 calprotec tin, stool 2022 023 [facility], [address] [place] [address], [address], 04/12/2023 12:36:21 Referral sports medicine referral - had 6 weeks of PT for left groin pain and left hip pain 2023 024 [facility], [address] [place] [address], [address], 09/11/2023 08:19:04 physical therapist referral 2022 023 [facility], [address] [place] [address], [address], 05/16/2023 13:59:24 Procedures None recorded. Surgeries None recorded. Imaging None recorded. Medication Orders omeprazol e 20 mg capsule,d elayed release 2024 025 [id number], [address] [place], [address], 08/23/2024 10:57:37 meloxicam 15 mg tablet 2022 023 [email or web address] 8 [id number], [address] [place], [address], 05/15/2023 08:58:13 escitalop genie 10 mg tablet 2022 023 [email or web address] [id number], [address] [place], [address], 08/23/2024 10:36:02 escitalop genie 5 mg tablet 2022 023 [email or web address] 8 [id number], [address] [place], [address], 05/15/2023 08:57:47 Patient TargetsNo targets recorded. Patient Instructions Encounter Date Encounter Id Patient Instructions Last Modified By Organization Details Last Modified Time 03/31/2023 [id number] pulse oximetry* [email or web address] Not available 03/31/2023 11:36:00 [...] pulse oxime try* Result 99 Not Available [facility] [address] [facility] [address], [place], [address], 03/18/2023 09:07:32 09/19/19 24 09/05/2023 MAMMO , michelle boykin, jyoti al, gretel tillman No observ ation record ed. [facility] [address] [place], [address], 08/23/2024 11:03:28 10/26/19 24 10/19/2023 MRI, marie pinedo, gretel tillman, w/wo contr ast No observ ation record ed. [facility] (Medical Records) [address] [facility], [place], [address], 08/23/2024 11:03:28 11/03/19 24 11/03/2023 US, breas t No observ ation record ed. [address] [place], [address], 08/23/2024 11:03:28 11/16/19 24 11/16/2023 MRI, hip, w/ contr ast No observ ation record ed. [facility] (Medical Records) [address] [facility] [place], [address], 08/23/2024 11:03:28 12/12/19 24 12/12/2023 fluor oscop y (PROC ) No observ ation record ed. [facility] (Medical Records) [address] [facility] [place], [address], 08/23/2024 11:03:28 05/07/20 24 05/07/2024 MAMMO , scree lucretia, digit al, bilat eral No observ ation record ed. [address] [place], [address], 08/23/2024 11:03:28 09/13/1909/09/2024 MAMMO , scree lucretia, digit al, bilat eral No observ ation record ed. [email or web address] [address] [place], [address], 09/17/2024 08:25:10 Result Notes None recorded. Problems Name Problem SNOMED Code Status Onset Date Resolution Date Notes Provider Name and Address Organization Details Recorded Time Asthma 534174291 Active 2017 Not Available [facility] 3 11:47:12 Gastriti s 4953963 Active 2017 Not Available [facility] 3 11:47:13 Degenera tive disorder of macula 367651141 Active 2017 Not Available [facility] 3 11:47:13 Anxiety 48756979 Active 2017 mild/ controll ed Not Available [facility] 3 11:47:13 Insomnia 903170930 Active 2017 mild/con trolled Not Available [facility] 3 11:47:12 Thyroid nodule 380947043 Completed 201704/25/2018 Neg bx over 10 years ago per pt. 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 Procedures Surgical History Date Name Laterality Status Provider Name and Address Organization Details Recorded Time 5 Most Recent Mammogram completed Ana Cedeno [facility] 09/17/2024 08:24:42 Imaging Results Imaging Date Name Status LastModified by [facility] Details LastModified Time 09/05/2023 MAMMO, screening, digital, bilateral completed [email or web address] [address] [place], [address], 08/23/2024 11:03:28 10/19/2023 MRI, breast, bilateral, w/wo contrast completed [facility] (Medical Records) [address] [place], [address], 08/23/2024 11:03:28 11/03/2023 US, breast completed [email or web address] [address] [place], [address], 08/23/2024 11:03:28 11/16/2023 MRI, hip, w/ contrast completed [facility] (Medical Records) [address] [place], [address], 08/23/2024 11:03:28 12/12/2023 fluoroscopy (PROC) completed [facility] (Medical Records) [address] [place], [address], 08/23/2024 11:03:28 05/07/2024 MAMMO, screening, digital, bilateral completed [address] [place], [address], 08/23/2024 11:03:28 09/09/2024 MAMMO, screening, digital, bilateral completed [email or web address] [address] [place], [address], 09/17/2024 08:25:10 Procedure Notes None recorded. Medical Equipment None Reported. Allergies Allergen ID Allergen Name Allergen Category Reaction Reaction Severity Criticality Documentation Date Start Date Code Code System Note Provider Name and Address Organization Details Recorded Time 6274 Wellbutri n medicatio n hives Not available Not available 04/25/2018 35107 RxNorm 300 mg dose only JOSE CARLOS WEEKS [address] [place] [address], [address], [facility] 10/11/202 2 09:23:20 Medications Name Sig Start Date [...] Updated DateTime 3 160.02 cm 24.1 kg/m2 74530.5 6 g 67 /min 100 % 100 % 118 mm[Hg] 60 mm[Hg] JOSE CARLOS WEEKS [address] [place], [address] [place], [place] - [facility] 3 10:32:35 Date Recorded Body height Body mass index (BMI) Body weight Heart rate Oxygen saturation Oxygen saturation in Arterial blood by Pulse oximetry Systolic blood pressure Diastolic blood pressure Provider Name and Address Organization Details Last Updated DateTime 3 160.02 cm 24.1 kg/m2 34528.5 6 g 80 /min 100 % 100 % 112 mm[Hg] 76 mm[Hg] Madie Arpan [facility] 3 11:24:18 Date Recorded Body height Body mass index (BMI) Body weight Heart rate Oxygen saturation Oxygen saturation in Arterial blood by Pulse oximetry Systolic blood pressure Diastolic blood pressure Provider Name and Address Organization Details Last Updated DateTime 3 160.02 cm 26.7 kg/m2 51257.7 3 g 71 /min 98 % 98 % 110 mm[Hg] 72 mm[Hg] Hayley Syd [facility] 3 08:56:50 Date Recorded Body height Body mass index (BMI) Body weight Heart rate Oxygen saturation Oxygen saturation in Arterial blood by Pulse oximetry Systolic blood pressure Diastolic blood pressure Provider Name and Address Organization Details Last Updated DateTime 5 160.02 cm 22 kg/m2 89842.8 9 g 72 /min 100 % 100 % 110 mm[Hg] 72 mm[Hg] Ana Cedeno [facility] 5 10:40:10 Social History Question Answer Notes LastModified by Organizat ion Details LastModified Time Tobacco Smoking Status Former Smoker Not Available [facility] 06/02/2020 03:36:23 What Was The Date Of Your Most Recent Tobacco Screening? 08/23/2024 [email or web address] Information not available 08/23/2024 How Many Years Have You Smoked Tobacco? 15 [id number] Information not available 06/02/2020 Do You Or Have You Ever Used Any Other Forms Of Tobacco Or Nicotine? No [email or web address] Information not available 09/08/2023 Sex: Unknown Functional [...] History Condition Response Coronary Artery Disease N Other N Gout N Kidney Stones N Blood Diseases N Breast Cancer N Blood Transfusion N COPD N Depression N Lung Disease N Defects or Inherited Disease N Anxiety [...] N Thyroid Problems N GI Problems N Skin Problems N Eating Disorder N Anemia N MRSA exposure N Constipation N Mental Illness N Ovarian Cancer N Diabetes N Seizures/Epilepsy N Tuberculosis N Congestive Heart Failure (CHF) N Eczema N Diverticulitis N Abuse/Domestic Violence N Asthma Y Reflux/GERD N Hepatitis N Heart Disease N Pulmonary Embolism N Hypertension N Osteoporosis N Chicken Pox N Autism Spectrum Disorder (ASD) N Gynecological History Statement/Question Response Abnormal Pap N Sexually Active? N IUD Menses Monthly Y Current Control Method IUD Most Recent Mammogram 09/09/2024 Age at Menarche 14 Obstetrics History GPAL:G 0 P 0 0 0 0 Immunizations Vaccine Type Date Status Note Provider Nam e and Address Organization Details Recorded Time Tdap 9 completed October LISA Manzanares [address] [place] [address], [address] 04/27/2018 13:47:43 Influenza, split virus, quadrivalent, preservative 2 completed BRANDIE rao [facility] 09/08/2023 09:07:22 influenza, unspecified formulation 4 completed Ana rao [facility] 05/08/2024 12:13:01 SARS-COV-2 (COVID-19) vaccine, UNSPECIFIED 4 completed Ana rao [facility] 05/08/2024 12:13:08 Tdap 0 completed No rao [facility] 05/08/2020 08:28:19 Influenza, split virus, quadrivalent, preservative 0 completed BRANDIE rao [facility] 09/08/2023 09:07:22 COVID-19, mRNA, LNP-S, PF, 30 mcg/0.3 mL dose 1 completed BRANDIE rao [facility] 09/08/2023 09:07:22 COVID-19, mRNA, LNP-S, PF, 30 mcg/0.3 mL dose 1 completed BRANDIE rao [facility] 09/08/2023 09:07:22 Past Encounters Encounter ID Performer Location Encounter Start Date Encounter Closed Date Diagnosis/Indication Diagnosis SNOMED-CT Code Diagnosis ICD10 Code Diagnosis Note [id number] October [facility] [address] [place] [address],[place] [address] 04/27/2018 13:29:56 04/27/2018 14:10:52 Adult health examination 221002575 Z00.01 mother with breast cancer age 52 Asthma 524738510 J45.90 9 stable Body mass index 25-29 - overweight 737135125 Z68.26 slightly overweight diet and exercise Gastroesop hageal reflux disease 240208076 K21.9 stable Anxiety 81300352 F41.9 well controlled with clonazepam Upper resp iratory infection 29770950 J06.9 [id number] Stefani Garcia NP, [facility] [address] [place] [address],[place] [address] 10/26/2018 13:43:14 10/30/2018 14:18:12 Asthma 100351568 J45.909 Anxiety 95561442 F41.9 Acid reflux 078974048 K2 1.9 prn zantac [id number] October [facility] [address] [facility],[place] [address] 05/03/2019 13:31:22 05/03/2019 14:32:49 Adult health examination 325444469 Z00.00 mother with breast cancer age 52 Active or passive immunization 489507743 Z23 will have flu shot at work flu clinic on the 15 of may Anxiety 18763160 F41.9 uses clonazepam maybe once or twice a week Asthma 477101668 J45.90 9 stable Insomnia 135045160 G47.0 0 uses clonazepam once a week Constipation 18762154 K5 9.00 Gastritis 8747536 K29.70 ranitidine on recall, will rx omeprazole Allergic rhinitis 467546 04 J30.9 Gastroesop hageal reflux disease 851824238 K21.9 stable Vitamin D deficiency 347 49421 E55.9 Body mass index 25-29 - overweight 716547456 Z68.26 slightly overweight diet and exercise Venereal d isease screening 055320597 Z11.3 [id number] JOSE CARLOS WEEKS [facility] [address] [facility],[place] [address] 05/04/2020 09:09:12 05/04/2020 09:41:26 Asthma 133983257 J45.909 stable Active or passive immunization 442069546 Z23 send for booster Adult [facility] examination 589873500 Z00.00 BP is excellent today Screening for cardiovascular system disease 787048146 Z13.6 [place] [id number] JOSE CARLOS WEEKS [facility] [address] [facility],[place] [address] 05/05/2021 08:51:45 05/05/2021 10:22:55 Active or passive immunization 892871774 Z23 will be getting flu shot Adult [facility] th examination 247201358 Z00.00 BP is excellent today Weight gain 6726451 R63. 5 will fu with lab work [id number] JOSE CARLOS WEEKS [facility] [address] [facility], [place] [address] 06/29/2021 10:19:04 07/02/2021 15:38:28 Acute severe exacerbation of asthma 865713558 J45.31 will start on pred, abx and cough suppressan t her inhaler is up to date Asthma 258909221 J45.21 will treat for acute exacerbati on Acute bronchitis 1280102 2 J20.8 given instructio ns how to take Cough 04858532 R05.1 no improvemen t and limitied sleep with OTC meds, will give oral liquid [id number] JOSE CARLOS WEEKS [facility] [address] [facility],[employer] [place] [address] 09/07/2021 08:31:50 09/07/2021 14:40:53 Generalized anxiety disorder 33770100 F41.1 will start at low dose of the wellbutrin at 300 mg she gets hivesif she develops hives again will switch to busparpati ent concerned about weight gain [id number] JOSE CARLOS WEEKS [facility] [address] [facility] [place], [address] [facility] [place] [address] 05/10/2022 08:58:09 05/10/2022 13:46:04 Active or passive immunization 936911908 Z23 will be getting flu shot Adult heal th examination 168626466 Z00.00 BP is excellent today Eczema 55026997 L30.8 with fu with betamethas one topical for atophic dermatitis Anxiety 45686952 F41.1 will fu with increase 200 mg, stay away from 300 mg due to hives at high doses [id number] JOSE CARLOS WEEKS [facility] [address] [facility] [place], [address] [facility] [place] [address] 12/02/2022 10:22:57 12/05/2022 09:08:37 Constipation 12346975 K59.09 stable Insomnia 301587002 G47.0 0 stable Asthma 045318696 J45.21 stablestab le on singulair with albuterol Pain of le ft shoulder joint 7292031106 0934907 M25.512 has been seeing a chiropract or; feeling wellworkin g on therapyred uced weight on that side Anxiety 80225259 F41.1 switch to lexapro; reduce bupropion level [id number] JOSE CARLOS WEEKS [facility] [address] [facility] [place], [address] [facility] [place] [address] 03/31/2023 11:10:27 03/31/2023 14:48:23 Anxiety 47435211 F41.1 doing much better per patient Asthma 360919413 J45.21 stablestab le on singulair with albuterol Gastroesop hageal reflux disease 395597553 K21.9 stable Gastritis 0155658 K29.60 stable Constipation 06464017 K5 9.09 stable Diarrhea 97773111 A07.8 will set up lab work and GI stool panel Inguinal pain 673938502 R10.2 [id number] JOSE CARLOS WEEKS [facility] [address] [facility] [address] [place] [address] 05/15/2023 08:48:08 05/16/2023 13:59:24 Adult health examination 088479436 Z00.00 BP is excellent todayalrejunito singh had blood work Diarrhea 02955799 A07.8 never called her for the CT abdomen and pelvis Left inguinal hernia 236 305889 K40.90 agreed to physical therapy referral [id number] JOSE CARLOS WEEKS [facility] [address] [facility] [address],[place] [address] 09/08/2023 09:06:56 09/11/2023 11:04:54 Perimenopausal disorder 040150802 N95.8 will set up with lab work to determine if she is in missael-menop ause or any other abnormalit ies Inguinal pain 883956588 R10.2 per PT recommenda tion will set up with sports medicine for consult [id number] JOSE CARLOS WEEKS [facility] [address] [facility] [address],[place] [address] 08/23/2024 10:27:25 08/23/2024 11:16:34 Active or passive immunization 901081958 Z23 will be getting flu shot Adult heal th examination 586615778 Z00.00 BP is excellent todayalbandar singh had blood work Depression screening 171 705270 Z13.31 SCREENING NEGATIVE Perimenopa usal disorder 789917031 N95.8 will set up with lab work to determine if she is in missael-menop ause or any other abnormalit ies Gastritis 0106045 K29.60 stable Loss of hair 308860936 L 63.8 will set up with additional lab work Health Concerns Section Related Observation LastModified by Organization Analiai morena LastModified Time None Recorded Concern Status LastModified by Organization Details LastModified Time None Recorded Advance Directives Directive None Recorded Payers Encounter Date Sequence Insurance Name Policy Number Policy Beaulieu Covered Member ID Beaulieu Member ID Guarantor Name 12/02/[address] [place] [address] [id number] Yudi Gill [id number] Yudi Bautista-Kalyani io 03/31/2023 1 [employer] [id number] Yudi Bautista Jairo [id number] Yudi Bautista-Kalyani io 05/15/2023 1 [employer] [id number] Yudi Dumonto Jairo [id number] Yudi Bautista-Kalyani io 09/08/2023 1 [employer] [id number] Yudi Gibbs Bautista Jairo [id number] Yudi Bautista-Kalyani io 08/23/2024 1 [employer] [id number] Ydui Gibbs Bautista Jairo [id number] Yudi Bautista-Kalyani io Notes Date Note Type Note Provider [...] resolution with chiropractor JOSE CARLOS WEEKS [address] [place], [address], [facility] 12/02/2022 10:53:57 3 text/html c/o GI bloating the patient reports that on 02/28 she was at [facility]; had vomiting and diarrhea recurrentlythe patient is having bloating, diarrhea, pain stopped the patient reports having a weekthe patient is still having diarrhea, UC gave her immodium and dicyclomine agreed to lab work and stool culture JOSE CARLOS WEEKS [address] [place], [address], [facility] 03/31/2023 13:34:14 3 text/html Annual [...] (once per year) JOSE CARLOS WEEKS [address] [place], [address], [facility] 05/15/2023 09:15:38 4 text/html f/u appointment The patient is participating in this appointment via telemedicine communication with a phone call/video calling service ([employer])The patient consents to use of these platforms [...] as well PT recommended f/u with sports medicineshanall send in referral for the patient to have a consult the patient reports that she is in missael-menopauseshe reports she is having 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, 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, the patient reports increased depressionthe patient denies any hot flashesdenies hair or nail or skin changesthe patient denies sleep changes the patient does report weight gainthe patient reports that she is having more issues with concentration as well that she has never had before agreed to lab work JOSE CARLOS WEEKS [address] [place], [address], [facility] 09/08/2023 09:42:37 5 text/html Annual [...] previous the patient has a trip to [place] medication up-to-date on list still getting the MM and MRI due to cystic changes in her breast, everything has been normal JOSE CARLOS WEEKS [address] [place] [address], [place], [address], [facility] 08/23/2024 11:09:46 OBGyn Episode No OBEpisode recorded.
== END 2024-10-03 15:44 | disposition home or self-care (01) ==
PROVIDERS: PCP Internal Medicine; Visit Provider Surgery
DX: Z91.89 Other specified personal risk factors, not elsewhere classified (principal); Z80.3 Family history of malignant neoplasm of breast
CPT/HCPCS: 99213

== ENCOUNTER → 2024-10-03 15:23 | Outpatient (BNVA) | payer OTHER, SELFPAY | PROVIDERS: PCP Internal Medicine; Visit Provider Surgery ==

== ENCOUNTER → 2024-10-21 15:37 | Outpatient (BNV) | payer OTHER, SELFPAY | PROVIDERS: PCP Physician Assistant; Visit Provider Internal Medicine | DX: N63.11 Unspecified lump in the right breast, upper outer quadrant (principal) | CPT/HCPCS: 77049 ==

== ENCOUNTER 2024-10-21 15:41 | Outpatient (REF) | payer OTHER, SELFPAY ==
[2024-10-21] MEDS: gadobutroL 7.5 ML VIAL IVPUSH (16:19)
--- OUTSIDE RECORDS SUMMARY | 2024-10-21 18:28 | XMS_ITS | Data Portability ---
Author Organization [facility] Home Service Address [address] [place] [address] Assessment Encounter Date Assessment Date Assessment LastModified [...] + TIBC + ferritin, serum 2024 025 [facility], [address] [place] [address], [place], [address], 08/23/2024 10:58:55 PTH (parathyr oid hormone), intact + calcium, serum or plasma 2024 025 [facility], [address] [place], [address], 08/23/2024 10:58:55 estradiol , serum 2024 025 [facility], [address] [place] [address], [address], 09/09/2024 12:21:19 progester one, serum 2024 025 [facility], [address] [place] [address], [address], 09/10/2024 13:10:24 lh + FSH, serum 2024 025 [facility], [address] [place] [address], [address], 09/05/2024 12:57:46 estrogen, total, serum 2024 025 [facility], [address] [place] [address], [address], 09/10/2024 13:10:23 prolactin , serum 2024 025 [facility], [address] [place] [address], [address], 08/23/2024 10:58:55 testoster one, total, serum 2024 025 [facility], [address] [place] [address], [address], 09/12/2024 12:33:03 CMP, serum or plasma 2024 025 [facility], [address] [place] [address], [address], 09/03/2024 13:06:16 CBC w/ auto diff 2024 025 [facility], [address] [place] [address], [address], 08/23/2024 10:58:55 lipid panel, blood 2024 025 [facility], [address] [place] [address], [address], 08/23/2024 10:58:55 vitamin D, 25-hydrox y, total, serum 2024 025 [facility], [address] [place] [address], [address], 08/23/2024 10:58:55 TSH + free T4, serum 2024 025 [facility], [address] [place] [address], [address], 08/23/2024 10:58:55 hemoglobi n A1c, QN, blood 2024 025 [facility], [address] [place] [address], [address], 08/23/2024 10:58:54 vitamin B12 + folate, serum or blood 2024 025 [facility], [address] [place] [address], [address], 08/23/2024 10:58:55 estradiol , serum 2023 024 [facility], [address] [place] [address], [address], 09/18/2023 11:30:14 progester one, serum 2023 024 [facility], [address] [place] [address], [address], 09/08/2023 09:39:22 lh + FSH, serum 2023 024 [facility], [address] [place] [address], [address], 09/08/2023 09:39:22 estrogen, total, serum 2023 024 [facility], [address] [place] [address], [address], 09/15/2023 11:34:22 prolactin , serum 2023 024 [facility], [address] [place] [address], [address], 09/11/2023 12:10:52 testoster one, total, serum 2023 024 [facility], [address] [place] [address], [address], 09/14/2023 12:35:14 TSH + free T4, serum 2023 024 [facility], [address] [place] [address], [address], 09/08/2023 09:39:22 gastroint estinal pathogens panel, PCR, stool 2022 023 [facility], [address] [place] [address], [address], 04/06/2023 12:58:10 CMP, serum or plasma 2022 023 [facility], [address] [place] [address], [address], 04/03/2023 11:20:30 amylase + lipase, serum 2022 023 [facility], [address] [place] [address], [address], 03/31/2023 11:40:30 gamma-glu tamyl transfera se (ggt), serum 2022 023 [facility], [address] [place] [address], [address], 03/31/2023 11:40:30 ESR (erythroc yte sedimenta tion rate), blood 2022 023 [facility], [address] [place] [address], [place], [address], 03/31/2023 11:40:30 C-reactiv e protein, quantitat tomasa, serum or plasma 2022 023 [facility], [address] [place] [address], [address], 03/31/2023 11:40:30 calprotec tin, stool 2022 023 [facility], [address] [place] [address], [address], 04/12/2023 12:36:21 Referral sports medicine referral - had 6 weeks of PT for left groin pain and left hip pain 2023 024 [facility], [address] [place] [address], [address], 09/11/2023 08:19:04 physical therapist referral 2022 023 [facility], [address] [place] [address], [address], 05/16/2023 13:59:24 Procedures None recorded. Surgeries None recorded. Imaging None recorded. Medication Orders omeprazol e 20 mg capsule,d elayed release 2024 025 [id number], [address] [place], [address], 08/23/2024 10:57:37 meloxicam 15 mg tablet 2022 023 [email or web address] 8 [id number], [address] [place], [address], 05/15/2023 08:58:13 escitalop genie 10 mg tablet 2022 023 [email or web address] [id number], [address] [place], [address], 08/23/2024 10:36:02 escitalop genie 5 mg tablet 2022 023 [email or web address] 8 [id number], [address] [place], [address], 05/15/2023 08:57:47 Patient TargetsNo targets recorded. Patient Instructions Encounter Date Encounter Id Patient Instructions Last Modified By Organization Details Last Modified Time 03/31/2023 [id number] pulse oximetry* [email or web address] Not available 03/31/2023 11:36:00 [...] pulse oxime try* Result 99 Not Available [facility] [address] [facility] [address], [place], [address], 03/18/2023 09:07:32 09/19/19 24 09/05/2023 MAMMO , michelle boykin, jyoti al, gretel tillman No observ ation record ed. [facility] [address] [place], [address], 08/23/2024 11:03:28 10/26/19 24 10/19/2023 MRI, marie pinedo, gretel tillman, w/wo contr ast No observ ation record ed. [facility] (Medical Records) [address] [facility], [place], [address], 08/23/2024 11:03:28 11/03/19 24 11/03/2023 US, breas t No observ ation record ed. [address] [place], [address], 08/23/2024 11:03:28 11/16/19 24 11/16/2023 MRI, hip, w/ contr ast No observ ation record ed. [facility] (Medical Records) [address] [facility] [place], [address], 08/23/2024 11:03:28 12/12/19 24 12/12/2023 fluor oscop y (PROC ) No observ ation record ed. [facility] (Medical Records) [address] [facility], [address], 08/23/2024 11:03:28 05/07/20 24 05/07/2024 MAMMO , scree lucretia, digit al, bilat eral No observ ation record ed. [address] [place], [address], 08/23/2024 11:03:28 09/13/1909/09/2024 MAMMO , scree lucretia, digit al, bilat eral No observ ation record ed. [email or web address] [address] [place], [address], 09/17/2024 08:25:10 Result Notes None recorded. Problems Name Problem SNOMED Code Status Onset Date Resolution Date Notes Provider Name and Address Organization Details Recorded Time Asthma 092279893 Active 2017 Not Available [facility] 3 11:47:12 Gastriti s 0402976 Active 2017 Not Available [facility] 3 11:47:13 Degenera tive disorder of macula 702998058 Active 2017 Not Available [facility] 3 11:47:13 Anxiety 24247972 Active 2017 mild/ controll ed Not Available [facility] 3 11:47:13 Insomnia 559516418 Active 2017 mild/con trolled Not Available [facility] 3 11:47:12 Thyroid nodule 425135678 Completed 201704/25/2018 Neg bx over 10 years ago per pt. Cari rao [facility] 8 16:20:51 Gastroes ophageal reflux disease 950270920 Active 2018 Not Available [facility] 3 11:47:12 Eczema 25573247 Active 2021 Not Available [facility] 3 11:47:13 Pain of left shoulder joint 6919798277 7961236 Active 2022 Not Available [facility] 3 11:47:12 Inguinal pain 893556270 Active 2022 Not Available [facility] 3 11:47:12 Left inguinal hernia 444863504 Active 2022 JOSE CARLOS WEEKS [address] [place], [address], [facility] 3 09:09:30 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 Procedures Surgical History Date Name Laterality Status Provider Name and Address Organization Details Recorded Time 5 Most Recent Mammogram completed Ana Cedeno [facility] 09/17/2024 08:24:42 Imaging Results Imaging Date Name Status [facility]Modified by [facility] Details LastModified Time 09/05/2023 MAMMO, screening, digital, bilateral completed [email or web address] [address] [place], [address], 08/23/2024 11:03:28 10/19/2023 MRI, breast, bilateral, w/wo contrast completed [facility] (Medical Records) [address] [place], [address], 08/23/2024 11:03:28 11/03/2023 US, breast completed rtba [address] [place], [address], 08/23/2024 11:03:28 11/16/2023 MRI, hip, w/ contrast completed [facility] (Medical Records) [address] [place], [address], 08/23/2024 11:03:28 12/12/2023 fluoroscopy (PROC) completed [facility] (Medical Records) [address] [place], [address], 08/23/2024 11:03:28 05/07/2024 MAMMO, screening, digital, bilateral completed [address] [place], [address], 08/23/2024 11:03:28 09/09/2024 MAMMO, screening, digital, bilateral completed [email or web address] [address] [place], [address], 09/17/2024 08:25:10 Procedure Notes None recorded. Medical Equipment None Reported. Allergies Allergen ID Allergen Name Allergen Category Reaction Reaction Severity Criticality Documentation Date Start Date Code Code System Note Provider Name and Address Organization Details Recorded Time 3612 Wellbutri n medicatio n hives Not available Not available 04/25/2018 07719 RxNorm 300 mg dose only JOSE CARLOS WEEKS [address] [place] [address], [address], [facility] 10/11/202 2 09:23:20 Medications [...] TABLET BY MOUTH EVERY DAY IN THE EVENING 2024 active Not Available Not Available Not Avai lable codeine 10 mg-guaifene sin 100 mg/5 mL [...] Updated DateTime 3 160.02 cm 24.1 kg/m2 78405.5 6 g 67 /min 100 % 100 % 118 mm[Hg] 60 mm[Hg] JOSE CARLOS WEEKS [address] [place], [address] [place], [place] - [facility] 3 10:32:35 Date Recorded Body height Body mass index (BMI) Body weight Heart rate Oxygen saturation Oxygen saturation in Arterial blood by Pulse oximetry Systolic blood pressure Diastolic blood pressure Provider Name and Address Organization Details Last Updated DateTime 3 160.02 cm 24.1 kg/m2 74625.5 6 g 80 /min 100 % 100 % 112 mm[Hg] 76 mm[Hg] Madie Arpan [facility] 3 11:24:18 Date Recorded Body height Body mass index (BMI) Body weight Heart rate Oxygen saturation Oxygen saturation in Arterial blood by Pulse oximetry Systolic blood pressure Diastolic blood pressure Provider Name and Address Organization Details Last Updated DateTime 3 160.02 cm 26.7 kg/m2 85407.7 3 g 71 /min 98 % 98 % 110 mm[Hg] 72 mm[Hg] Hayley Syd [facility] 3 08:56:50 Date Recorded Body height Body mass index (BMI) Body weight Heart rate Oxygen saturation Oxygen saturation in Arterial blood by Pulse oximetry Systolic blood pressure Diastolic blood pressure Provider Name and Address Organization Details Last Updated DateTime 5 160.02 cm 22 kg/m2 11390.8 9 g 72 /min 100 % 100 % 110 mm[Hg] 72 mm[Hg] Ana Cedeno [facility] 5 10:40:10 Social History Question Answer Notes LastModified by Organizat ion Details LastModified Time Tobacco Smoking Status Former Smoker Not Available [facility] 06/02/2020 03:36:23 What Was The Date Of Your Most Recent Tobacco Screening? 08/23/2024 [email or web address] Information not available 08/23/2024 How Many Years Have You Smoked Tobacco? 15 [id number] Information not available 06/02/2020 Do You Or Have You Ever Used Any Other Forms Of Tobacco Or Nicotine? No [email or web address] Information not available 09/08/2023 Sex: Unknown Functional [...] Artery Disease N Other N Gout N Blood Diseases N Kidney Stones N Blood Transfusion N Breast Cancer N Depression N COPD N Lung Disease N Defects or Inherited Disease N Anxiety Disorder N Muscle, Joint, or Bone Problems N Obesity N Vision or Eye Problems N Arthritis N Polyps N Infertility N Mental Disorder N Cancer N Varicosities N Stroke N Endometriosis N Bladder or Kidney Problems [...] Time Tdap 9 completed October LISA Manzanares [address] [place] [address], [address], [facility] 04/27/2018 13:47:43 Influenza, split virus, quadrivalent, preservative 2 completed BRANDIE rao [facility] 09/08/2023 09:07:22 influenza, unspecified formulation 4 completed Ana rao [facility] 05/08/2024 12:13:01 SARS-COV-2 (COVID-19) vaccine, UNSPECIFIED 4 completed Ana rao [facility] 05/08/2024 12:13:08 Tdap 0 completed No rao [facility] 05/08/2020 08:28:19 Influenza, split virus, quadrivalent, preservative 0 completed BRANDIE rao [facility] 09/08/2023 09:07:22 COVID-19, mRNA, LNP-S, PF, 30 mcg/0.3 mL dose 1 completed BRANDIE rao [facility] 09/08/2023 09:07:22 COVID-19, mRNA, LNP-S, PF, 30 mcg/0.3 mL dose 1 completed BRANDIE rao [facility] 09/08/2023 09:07:22 Past Encounters Encounter ID Performer Location Encounter Start Date Encounter Closed Date Diagnosis/Indication Diagnosis SNOMED-CT Code Diagnosis ICD10 Code Diagnosis Note [id number] October [facility], [place], operated by [facility] [address] [place] [address],[place] [address] 04/27/2018 13:29:56 04/27/2018 14:10:52 Adult health examination 269180747 Z00.01 mother with breast cancer age 52 Asthma 346170892 J45.90 9 stable Body mass index 25-29 - overweight 804730875 Z68.26 slightly overweight diet and exercise Gastroesop hageal reflux disease 517189597 K21.9 stable Anxiety 72301823 F41.9 well controlled with clonazepam Upper resp iratory infection 57200933 J06.9 [id number] Stefani Garcia NP, [facility] [address] [place] [address],[place] [address] 10/26/2018 13:43:14 10/30/2018 14:18:12 Asthma 161331312 J45.909 Anxiety 63800451 F41.9 Acid reflux 951434636 K2 1.9 prn zantac [id number] October [facility] [place], operated by [facility] [address] [facility],[place] [address] 05/03/2019 13:31:22 05/03/2019 14:32:49 Adult health examination 216421488 Z00.00 mother with breast cancer age 52 Active or passive immunization 704798016 Z23 will have flu shot at work flu clinic on the 15 of may Anxiety 05200376 F41.9 uses clonazepam maybe once or twice a week Asthma 873836222 J45.90 9 stable Insomnia 506153003 G47.0 0 uses clonazepam once a week Constipation 93488737 K5 9.00 Gastritis 5212655 K29.70 ranitidine on recall, will rx omeprazole Allergic rhinitis 156004 04 J30.9 Gastroesop hageal reflux disease 720863907 K21.9 stable Vitamin D deficiency 347 69005 E55.9 Body mass index 25-29 - overweight 919021989 Z68.26 slightly overweight diet and exercise Venereal d isease screening 245922994 Z11.3 [id number] JOSE CARLOS WEEKS [facility] [address] [facility] [address] 05/04/2020 09:09:12 05/04/2020 09:41:26 Asthma 584881139 J45.909 stable Active or passive immunization 328363352 Z23 send for booster Adult [facility] examination 867504835 Z00.00 BP is excellent today Screening for cardiovascular system disease 081482963 Z13.[place] [id number] JOSE CARLOS WEEKS [facility] [address] [facility], [place] [address] 05/05/2021 08:51:45 05/05/2021 10:22:55 Active or passive immunization 326552577 Z23 will be getting flu shot Adult [facility] th examination 616205091 Z00.00 BP is excellent today Weight gain 6833413 R63. 5 will fu with lab work [id number] JOSE CARLOS WEEKS [facility] [address] [facility], [place] [address] 06/29/2021 10:19:04 07/02/2021 15:38:28 Acute severe exacerbation of asthma 613596067 J45.31 will start on pred, abx and cough suppressan t her inhaler is up to date Asthma 694659940 J45.21 will treat for acute exacerbati on Acute bronchitis 1079036 2 J20.8 given instructio ns how to take Cough 30832148 R05.1 no improvemen t and limitied sleep with OTC meds, will give oral liquid [id number] JOSE CARLOS WEEKS [facility] [address] [facility] [place] [address] 09/07/2021 08:31:50 09/07/2021 14:40:53 Generalized anxiety disorder 20808779 F41.1 will start at low dose of the wellbutrin at 300 mg she gets hivesif she develops hives again will switch to busparpati ent concerned about weight gain [id number] JOSE CARLOS WEEKS [facility] [address] [facility] [address] 05/10/2022 08:58:09 05/10/2022 13:46:04 Active or passive immunization 502415861 Z23 will be getting flu shot Adult heal th examination 308959284 Z00.00 BP is excellent today Eczema 46655923 L30.8 with fu with betamethas one topical for atophic dermatitis Anxiety 55669033 F41.1 will fu with increase 200 mg, stay away from 300 mg due to hives at high doses [id number] JOSE CARLOS WEEKS [facility] [address] [facility], [address] [place] [facility] [place] [address] 12/02/2022 10:22:57 12/05/2022 09:08:37 Constipation 30539733 K59.09 stable Insomnia 931785196 G47.0 0 stable Asthma 923852671 J45.21 stablestab le on singulair with albuterol Pain of le ft shoulder joint 8259263701 0604957 M25.512 has been seeing a chiropract or; feeling wellworkin g on therapyred uced weight on that side Anxiety 31169208 F41.1 switch to lexapro; reduce bupropion level [id number] JOSE CARLOS WEEKS [facility] [address] [facility] [address] 03/31/2023 11:10:27 03/31/2023 14:48:23 Anxiety 53597577 F41.1 doing much better per patient Asthma 021211832 J45.21 stablestab le on singulair with albuterol Gastroesop hageal reflux disease 258888045 K21.9 stable Gastritis 2865152 K29.60 stable Constipation 28339998 K5 9.09 stable Diarrhea 08483584 A07.8 will set up lab work and GI stool panel Inguinal pain 334962123 R10.2 [id number] JOSE CARLOS WEEKS [facility] [address] [facility],[place] [address] 05/15/2023 08:48:08 05/16/2023 13:59:24 Adult health examination 150223768 Z00.00 BP is excellent todayalbandar singh had blood work Diarrhea 04690912 A07.8 never called her for the CT abdomen and pelvis Left inguinal hernia 236 494692 K40.90 agreed to physical therapy referral [id number] JOSE CARLOS WEEKS [facility] [address] [facility],[place] [address] 09/08/2023 09:06:56 09/11/2023 11:04:54 Perimenopausal disorder 862732012 N95.8 will set up with lab work to determine if she is in missael-menop ause or any other abnormalit ies Inguinal pain 656435412 R10.2 per PT recommenda tion will set up with sports medicine for consult [id number] JOSE CARLOS WEEKS [facility] [address] [facility],[place] [address] 08/23/2024 10:27:25 08/23/2024 11:16:34 Active or passive immunization 123303567 Z23 will be getting flu shot Adult heal th examination 809451000 Z00.00 BP is excellent todaymady singh had blood work Depression screening 171 303855 Z13.31 SCREENING NEGATIVE Perimenopa usal disorder 225612753 N95.8 will set up with lab work to determine if she is in missael-menop ause or any other abnormalit ies Gastritis 9031012 K29.60 stable Loss of hair 361380882 L 63.8 will set up with additional lab work Health Concerns Section Related Observation LastModified by Organization Detai ls LastModified Time None Recorded Concern Status LastModified by Organization Details LastModified Time None Recorded Advance Directives Directive None Recorded Payers Encounter Date Sequence Insurance Name Policy Number Policy Beaulieu Covered Member ID Beaulieu Member ID Guarantor Name 12/02/[address] [place] [address] [id number] Yudi Bautista Jairo [id number] Yudi Bautista-Kalyani io 03/31/2023 1 [employer] [id number] Yudi Bautista Jairo [id number] Yudi Bautista-Kalyani io 05/15/2023 1 [employer] [id number] Yudi Dumonto Jairo [id number] Yudi Bautista-Kalyani io 09/08/2023 1 [employer] [id number] Yudi Gibbs Bautista Jairo [id number] Yudi Bautista-Kalyani io 08/23/2024 1 [employer] [id number] Yudi Gibbs Bautista Jairo [id number] Yudi Bautista-Kalyani io Notes Date Note Type [...] resolution with chiropractor JOSE CARLOS WEEKS [address] [place], [address], [facility] 12/02/2022 10:53:57 3 text/html c/o GI bloating the patient reports that on 02/28 she was at [place]; had vomiting and diarrhea recurrentlythe patient is having bloating, diarrhea, pain stopped the patient reports having a weekthe patient is still having diarrhea, UC gave her immodium and dicyclomine agreed to lab work and stool culture JOSE CARLOS WEEKS [address] [place], [address], [facility] 03/31/2023 13:34:14 3 text/html [...] (once per year) JOSE CARLOS WEEKS [address] [place], [address], [facility] 05/15/2023 09:15:38 4 text/html f/u appointment The patient is participating in this appointment via telemedicine communication with a phone call/video calling service ([employer])The patient consents to use of these platforms [...] missael-menopauseshe reports she is having 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, glass 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, the patient reports increased depressionthe patient denies any hot flashesdenies hair or nail or skin changesthe patient denies sleep changes the patient does report weight gainthe patient reports that she is having more issues with concentration as well that she has never had before agreed to lab work JOSE CARLOS WEEKS [address] [place], [address], [facility] 09/08/2023 09:42:37 5 text/html [...] previous the patient has a trip to [place] medication up-to-date on list still getting the MM and MRI due to cystic changes in her breast, everything has been normal JOSE CARLOS WEEKS [address] [place] [address], [place], [address], [facility] 08/23/2024 11:09:46 OBGyn Episode No OBEpisode recorded.
== END 2024-10-21 15:42 | disposition home or self-care (01) ==
LOC: HO.MRI 15:41
PROVIDERS: PCP Physician Assistant; Visit Provider Surgery
DX: Z91.89 Other specified personal risk factors, not elsewhere classified (principal); Z80.3 Family history of malignant neoplasm of breast
CPT/HCPCS: 77049; A9585

== ENCOUNTER 2025-02-17 15:53 | Outpatient (AMB) | payer OTHER, SELFPAY ==
--- NOTE | 2025-02-17 15:54 | MHC.OFFVIS ---
Vital Signs 02/17/25 16:00 Height 5 ft 2 in Weight 135 lb BMI 24.7 BP 104/48 L Blood Pressure Location Rt brachial Position Sitting Pulse 62 Pulse Source Pulse Oximeter Pulse Oximetry (%) 99 Oxygen Delivery Method Room Air Intake Visit Reasons: f/u bloating Intake Note: Est pt for mgmt of [facility] + bloating. CC; C.O. explosive diarrhea, bloating, and foul odor pertaining to their flatulence that they are experiencing. Pt states that their GERD is OK. 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 Avoid dietary triggers and late night snacking. Staying upright for minimum 3 hours after meals discussed with patient. Continue Citrucel and MiraLax. Increase fluid intake and activity to promote better bowel motility. Patient will get probiotics and take it every day. Patient was encouraged to do that is specially before traveling. Patient was encouraged to buy bottled water when traveling to tropical countries. Continue omeprazole daily. Follow-up in 6 months, sooner on as needed basis. She is agreeable to this plan and verbalizes understanding of instructions. She was given the opportunity to ask questions and all questions answered. TODAY'S VISIT: Patient is here today for follow-up. Patient reports that she has been doing better, however she still have occasional postprandial abdominal bloating with diarrhea. Patient states that she is trying low FODMAP diet. She is taking fiber with pre and probiotics. Patient admits that she travels, however never has trouble when she is somewhat also except when she comes back home. Patient is using protein shake with some lactose and whay protein. Patient reports very odorous flatus specially when she has bouts of diarrhea. Patient denies melena, hematochezia. Patient denies any mucus in her stools. Denies fever or chills. Reports that her acid reflux is controlled with the omeprazole. [facility] Medical History (Updated 02/17/25 @ 20:13 by Ciara Richards [facility]) GERD (gastroesophageal reflux disease) Asthma Surgical History H/O LEEP Family History Mother Breast CA, Onset Age: 50 Father Diabetes Maternal Aunt Non-Hodgkin lymphoma Breast CA Paternal Uncle Lung cancer Social History Household Members: None Housing: Apartment Alcohol intake: current Alcohol intake frequency: holidays/special occasions only Patient Tobacco Use Status: Former Tobacco user Tobacco use type: Cigarette service: No Current occupational status: employed Current occupation: [employer] Sexual orientation: Straight/Heterosexual Gender identity: Female Female Reproductive History Menstrual Age of Menarche: 14 Review of Systems Const Denies weight gain and Denies weight loss ENT Reports no additional complaints, Denies dysphagia and Denies odynophagia Card Reports no additional complaints Resp Reports no additional complaints GI Denies abdominal pain, Denies belching, Denies melena, Reports bloating, Denies change in bowel habits, Denies dysphagia, Denies excessive flatus, Denies dyspepsia, Denies heartburn, Denies diarrhea, Reports loose stools, Denies nausea, Denies odynophagia and Denies vomiting Reports no additional complaints Musc Reports no additional complaints Neuro Reports no additional complaints Psych Reports no additional complaints Endo Reports no additional complaints Physical Exam Vital Signs: Last Vital Signs Pulse 62 02/17/25 16:00 BP 104/48 L 02/17/25 16:00 Pulse Ox 99 02/17/25 16:00 Oxygen Delivery Method Room Air 02/17/25 16:00 BMI result Body Mass Index 24.7 Const General: healthy appearing, no acute distress and well developed Nutritional Appearance: well nourished Orientation/consciousness: patient oriented x3 Resp Effort & Inspection: normal respiratory effort, able to speak in complete sentences, no tracheal deviation and symmetric chest movement Auscultation: clear to auscultation bilaterally Cardio Rate: regular rate GI Inspection: Yes normal to inspection and No distended Palpation (GI): Soft to palpation, not firm, nontender and No hepatosplenomegaly present Auscultation: normal bowel sounds General: Yes no CVA tenderness Back/Spine/Pelvis Back: no CVA tenderness Skin General skin exam: elasticity normal, turgor normal and dry skin Neuro General: patient oriented x3 Psych Appearance: grossly normal Mental Status: mental status grossly normal Assessment & Plan Assessment & Plan (1) GERD (gastroesophageal reflux disease): Code(s): K21.9 - Gastro-esophageal reflux disease without esophagitis Category: Medical Qualifiers: Esophagitis presence: esophagitis presence not specified Qualified Code(s): K21.9 - Gastro-esophageal reflux disease without esophagitis (2) Postprandial diarrhea: Code(s): K52.9 - Noninfective gastroenteritis and colitis, unspecified (3) Postprandial abdominal bloating: Code(s): R14.0 - Abdominal distension (gaseous) Plan Patient will continue omeprazole. Continue avoiding dietary triggers in late night snacking. Staying upright for minimal 3 hours after meals discussed with patient. Patient will try to change her protein powder. Avoid lactose. Message sent to RN Rashard to inquire and send patient kit to rule out SIBO. We have checked her before for inflammatory bowel disease and the workup was negative, ruled out viral component. Most likely related to the food that she is eating. Patient was encouraged to change fiber and continue taking pre and probiotics. Follow-up in 3 months, sooner on as needed basis. She is agreeable to this plan and verbalizes understanding of instructions. She was given the opportunity to ask questions and all questions answered. Thank you for allowing me to participate in her care Coding Level of Care Code Est Pt Level 4 (44855) Complex EM visit Add On G2211 Diagnoses Gastroesophageal reflux disease, unspecified whether esophagitis present K21.9 Esophagitis presence: esophagitis presence not specified Postprandial diarrhea K52.9 Postprandial abdominal bloating R14.0 Time Spent (min) 35 Comment 25 minutes spent with patient and additional 10 minutes spent reviewing her records
[2025-02-17 16:00] VITALS: BP 104/48; PULSE 62; O2SAT 99; BMI 24.7
--- OUTSIDE RECORDS SUMMARY | 2025-02-17 16:17 | XMS_ITS | Data Portability ---
Author Organization [facility], Telehealth Patient Home Address [address] [place] [address] Assessment Encounter Date Assessment Date Assessment LastModified [...] + TIBC + ferritin, serum 2024 025 [facility], [address] [place] [address], [place], [address], 08/23/2024 10:58:55 PTH (parathyr oid hormone), intact + calcium, serum or plasma 2024 025 [facility], [address] [place] [address], [id number], 08/23/2024 10:58:55 estradiol , serum 2024 025 [facility], [address] [place] [address], [address], 09/09/2024 12:21:19 progester one, serum 2024 025 [facility], [address] [place] [address], [address], 09/10/2024 13:10:24 lh + FSH, serum 2024 025 [facility], [address] [place] [address], [address], 09/05/2024 12:57:46 estrogen, total, serum 2024 025 [facility], [address] [place] [address], [address], 09/10/2024 13:10:23 prolactin , serum 2024 025 [facility], [address] [place] [address], [address], 08/23/2024 10:58:55 testoster one, total, serum 2024 025 [facility], [address] [place] [address], [address], 09/12/2024 12:33:03 CMP, serum or plasma 2024 025 [facility], [address] [place] [address], [address], 09/03/2024 13:06:16 CBC w/ auto diff 2024 025 [facility], [address] [place] [address], [address], 08/23/2024 10:58:55 lipid panel, blood 2024 025 [facility], [address] [place] [address], 99[address], 08/23/2024 10:58:55 vitamin D, 25-hydrox y, total, serum 2024 025 [facility], [address] [place] [address], 73[address], 08/23/2024 10:58:55 TSH + free T4, serum 2024 025 [facility], [address] [place] [address], 98[address], 08/23/2024 10:58:55 hemoglobi n A1c, QN, blood 2024 025 [facility], [address] [place] [address], 109[address], 08/23/2024 10:58:54 vitamin B12 + folate, serum or blood 2024 025 [facility], [address] [place] [address], 00[address], 08/23/2024 10:58:55 estradiol , serum 2023 024 [facility], [address] [place] [address], 135[address], 09/18/2023 11:30:14 progester one, serum 2023 024 [facility], [address] [place] [address], 8[address], 09/08/2023 09:39:22 lh + FSH, serum 2023 024 [facility], [address] [place] [address], 87[address], 09/08/2023 09:39:22 estrogen, total, serum 2023 024 [facility], [address] [place] [address], [address], 09/15/2023 11:34:22 prolactin , serum 2023 024 [facility], [address] [place] [address], 959[address], 09/11/2023 12:10:52 testoster one, total, serum 2023 024 [facility], [address] [place] [address], [address], 09/14/2023 12:35:14 TSH + free T4, serum 2023 024 [facility], [address] [place] [address], [address], 09/08/2023 09:39:22 gastroint estinal pathogens panel, PCR, stool 2022 023 [facility], [address] [place] [address], 7[address], 04/06/2023 12:58:10 CMP, serum or plasma 2022 023 [facility], [address] [place] [address], 411[address], 04/03/2023 11:20:30 amylase + lipase, serum 2022 023 [facility], [address] [place] [address], 8[address], 03/31/2023 11:40:30 gamma-glu tamyl transfera se (ggt), serum 2022 023 [facility], [address] [place] [address], [address], 03/31/2023 11:40:30 ESR (erythroc yte sedimenta tion rate), blood 2022 023 [facility], [address] [place] [address], [place], [address], 03/31/2023 11:40:30 C-reactiv e protein, quantitat tomasa, serum or plasma 2022 023 [facility], [address] [place] [address], [place], [address], 03/31/2023 11:40:30 calprotec tin, stool 2022 023 [facility], [address] [place] [address], [place], [address], 04/12/2023 12:36:21 Referral sports medicine referral - had 6 weeks of PT for left groin pain and left hip pain 2023 024 [facility], [address] [place], [address], 09/11/2023 08:19:04 physical therapist referral 2022 023 [facility], [address] [place] [address], [address], 05/16/2023 13:59:24 Procedures None recorded. Surgeries None recorded. Imaging None recorded. Medication Orders omeprazol e 20 mg capsule,d elayed release 2024 025 [place] [id number], [address] [place], [address], 08/23/2024 10:57:37 meloxicam 15 mg tablet 2022 023 [email or web address] 8 [id number], [address] [place], [address], 05/15/2023 08:58:13 escitalop genie 10 mg tablet 2022 023 [email or web address] [id number], [address] [place], [address], 08/23/2024 10:36:02 escitalop genie 5 mg tablet 2022 023 [email or web address] 8 [id number], [address] [place], [address], 05/15/2023 08:57:47 Patient TargetsNo targets recorded. Patient Instructions Encounter Date Encounter Id Patient Instructions Last Modified By Organization Details Last Modified Time 03/31/2023 [id number] pulse oximetry* [email or web address] Not available 03/31/2023 11:36:00 [...] Not Available [facility] [address] [facility] [address], [place], [address], 03/18/2023 09:07:32 09/19/19 24 09/05/2023 MAMMO , michelle boykin, jyoti al, gretel tillman No observ ation record ed. [facility] [address] [place], [address], 08/23/2024 11:03:28 10/26/19 24 10/19/2023 MRI, marie t, gretel tillman, w/wo contr ast No observ ation record ed. [facility] (Medical Records) [address] [place], [address], 08/23/2024 11:03:28 11/03/19 24 11/03/2023 US, shahrammandy t No observ ation record ed. [address] [place], [address], 08/23/2024 11:03:28 11/16/19 24 11/16/2023 MRI, hip, w/ contr ast No observ ation record ed. [facility] (Medical Records) [address] [place], [address], 08/23/2024 11:03:28 12/12/19 24 12/12/2023 fluor oscop y (PROC ) No observ ation record ed. [facility] (Medical Records) [address] [place], [address], 08/23/2024 11:03:28 05/07/20 24 05/07/2024 MAMMO , scree lucretia, digit al, bilat eral No observ ation record ed. [address] [place], [address], 08/23/2024 11:03:28 09/13/19 25 09/09/2024 MAMMO , scree lucretia, digit al, bilat eral No observ ation record ed. [email or web address] [address] [place], [address], 09/17/2024 08:25:10 10/26/19 25 10/21/2024 MAMMO , scree lucretia, digit al, bilat eral No observ ation record ed. [facility] (Medical Records) [address] [place], [address], 10/25/2024 10:00:31 Result Notes None recorded. Problems Name Problem SNOMED Code Status Onset Date Resolution Date Notes Provider Name and Address Organization Details Recorded Time Asthma 914903996 Active 2017 Not Available [facility] 3 11:47:12 Gastriti s 9975792 Active 2017 Not Available [facility] 3 11:47:13 Degenera tive disorder of macula 964015115 Active 2017 Not Available [facility] 3 11:47:13 Anxiety 84348565 Active 2017 mild/ controll ed Not Available [facility] 3 11:47:13 Insomnia 021946178 Active 2017 mild/con trolled Not Available [facility] 3 11:47:12 Thyroid nodule 058874195 Completed 201704/25/2018 Neg bx [facility] 10 [facility] 16:20:51 Gastroes ophageal reflux disease 597418601 Active 2018 Not Available [facility] 3 11:47:12 Eczema 81800917 Active 2021 Not Available [facility] 3 11:47:13 Pain of left shoulder joint 4666564024 0583639 Active 2022 Not Available [facility] 3 11:47:12 Inguinal pain 710077611 Active 2022 Not Available [facility] 3 11:47:12 Left inguinal hernia 594471456 Active 2022 JOSE CARLOS WEEKS [address] [place], [address], [facility] 3 09:09:30 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 Procedures Surgical History Date Name Laterality Status Provider Name and Address Organization Details Recorded Time 5 Most Recent Mammogram completed Ana Cedeno [facility] 09/17/2024 08:24:42 Imaging Results None recorded. Procedure Notes None recorded. Medical Equipment None Reported. Allergies Allergen ID Allergen Name Allergen Category Reaction Reaction Severity Criticality Documentation Date Start Date Code Code System Note Provider Name and Address Organization Details Recorded Time 2342 Wellbutri n medicatio n hives Not available Not available 04/25/2018 31049 RxNorm 300 mg dose only JOSE CARLOS WEEKS [address] [place], [address] 2 09:23:20 Medications Name Sig [...] in Arterial blood by Pulse oximetry Systolic And Diastolic Provider Name and Address Organization Details Last Updated DateTime 5 160.02 cm 22 kg/m2 18582.8 9 g 72 /min 100 % 100 % 110/72 mm[Hg] Ana Cedeno [facility] 5 10:40:10 Date Recorded Body height Body mass index (BMI) Body weight Heart rate Oxygen saturation Oxygen saturation in Arterial blood by Pulse oximetry Systolic And Diastolic Provider Name and Address Organization Details Last Updated DateTime 3 160.02 cm 24.1 kg/m2 58948.5 6 g 67 /min 100 % 100 % 118/60 mm[Hg] JOSE CARLOS WEEKS [address] [place] [address], [address] [place] [address] Internal Medicine 3 10:32:35 Date Recorded Body height Body mass index (BMI) Body weight Heart rate Oxygen saturation Oxygen saturation in Arterial blood by Pulse oximetry Systolic And Diastolic Provider Name and Address Organization Details Last Updated DateTime 3 160.02 cm 24.1 kg/m2 08582.5 6 g 80 /min 100 % 100 % 112/76 mm[Hg] Madie Antony [facility] 3 11:24:18 Date Recorded Body height Body mass index (BMI) Body weight Heart rate Oxygen saturation Oxygen saturation in Arterial blood by Pulse oximetry Systolic And Diastolic Provider Name and Address Organization Details Last Updated DateTime 3 160.02 cm 26.7 kg/m2 31425.7 3 g 71 /min 98 % 98 % 110/72 mm[Hg] Hayley Velarde [facility] 3 08:56:50 Social History Question Answer Notes LastModified by Organizat ion Details LastModified Time Tobacco Smoking Status Former Smoker Not Available [facility] 06/02/2020 03:36:23 What Was The Date Of Your Most Recent Tobacco Screening? 08/23/2024 [email or web address] Information not available 08/23/2024 How Many Years Have You Smoked Tobacco? 15 [id number] Information not available 06/02/2020 Sex: Unknown Functional Status Question Answer Note LastModified by Organization D etails LastModified Time Do you or have you ever used any other forms of tobacco or nicotine? No [email or web address] Information not available 09/08/2023 Mental Status None recorded. Family History Relationship [...] Time Tdap 9 completed October LISA Manzanares [address] [place] [address], [address], [facility] 04/27/2018 13:47:43 Influenza, split virus, quadrivalent, preservative 2 completed BRANDIE rao [facility] 09/08/2023 09:07:22 influenza, unspecified formulation 4 completed Ana Cedeno maira, [facility] 05/08/2024 12:13:01 SARS-COV-2 (COVID-19) vaccine, UNSPECIFIED 4 completed Ana Cedeno maira, [facility] 05/08/2024 12:13:08 Tdap 0 completed No Clemens null, [facility] 05/08/2020 08:28:19 Influenza, split virus, quadrivalent, preservative 0 completed BRANDIE LOWE maira [facility] 09/08/2023 09:07:22 COVID-19, mRNA, LNP-S, PF, 30 mcg/0.3 mL dose 1 completed BRANDIE rao [facility] 09/08/2023 09:07:22 COVID-19, mRNA, LNP-S, PF, 30 mcg/0.3 mL dose [facility] 09:07:22 Past Encounters Encounter ID Performer Location Encounter Start Date Encounter Closed Date Diagnosis/Indication Diagnosis SNOMED-CT Code Diagnosis ICD10 Code Diagnosis Note [id number] Tono Velasco [facility] [address] [facility], [place] [address] 04/27/2018 13:29:56 04/27/2018 14:10:52 Adult health examination 433874304 Z00.01 mother with breast cancer age 52 Asthma 234064126 J45.90 9 stable Body mass index 25-29 - overweight 290152375 Z68.26 slightly overweight diet and exercise Gastroesop hageal reflux disease 567139733 K21.9 stable Anxiety 13337391 F41.9 well controlled with clonazepam Upper resp iratory infection 04136508 J06.9 [id number] Tono Velasco [facility] [address] [facility], [place] [address] 10/26/2018 13:43:14 10/30/2018 14:18:12 Asthma 672394851 J45.909 Anxiety 97567312 F41.9 Acid reflux 863518722 K2 1.9 prn zantac [id number] Tono Velasco [facility] [address] [facility], [place] [address] 05/03/2019 13:31:22 05/03/2019 14:32:49 Adult health examination 899791130 Z00.00 mother with breast cancer age 52 Active or passive immunization 936132775 Z23 will have flu shot at work flu clinic on the 15 of may Anxiety 70683497 F41.9 uses clonazepam maybe once or twice a week Asthma 483358197 J45.90 9 stable Insomnia 612209837 G47.0 0 uses clonazepam once a week Constipation 24477152 K5 9.00 Gastritis 3525284 K29.70 ranitidine on recall, will rx omeprazole Allergic rhinitis 712388 04 J30.9 Gastroesop hageal reflux disease 480173074 K21.9 stable Vitamin D deficiency 347 42722 E55.9 Body mass index 25-29 - overweight 653219944 Z68.26 slightly overweight diet and exercise Venereal d isease screening 627989621 Z11.3 [id number] Tono Velasco [facility] [address] [facility],[place] [address] 05/04/2020 09:09:12 05/04/2020 09:41:26 Asthma 370156779 J45.909 stable Active or passive immunization 711998543 Z23 send for booster Adult heal th examination 349707589 Z00.00 BP is excellent today Screening for cardiovascular system disease 873325623 Z13.[place] [id number] Tono Velasco [facility] [address] [facility], [place] [address] 05/05/2021 08:51:45 05/05/2021 10:22:55 Active or passive immunization 958538366 Z23 will be getting flu shot Adult heal th examination 241722257 Z00.00 BP is excellent today Weight gain 8702150 R63. 5 will fu with lab work [id number] Tono Velasco [facility] [address] [facility] [address] 06/29/2021 10:19:04 07/02/2021 15:38:28 Acute severe exacerbation of asthma 222339527 J45.31 will start on pred, abx and cough suppressan t her inhaler is up to date Asthma 164033044 J45.21 will treat for acute exacerbati on Acute bronchitis 0409134 2 J20.8 given instructio emanuel how to take Cough 91454900 R05.1 no improvemen t and limitied sleep with OTC meds, will give oral liquid [id number] Tono Velasco [facility] [address] [facility], [place] [address] 09/07/2021 08:31:50 09/07/2021 14:40:53 Generalized anxiety disorder 01231803 F41.1 will start at low dose of the wellbutrin at 300 mg she gets hivesif she develops hives again will switch to busparpati ent concerned about weight gain [id number] Tono Velasco [facility] [address] [facility], [facility] [address] 05/10/2022 08:58:09 05/10/2022 13:46:04 Active or passive immunization 406237065 Z23 will be getting flu shot Adult heal th examination 523845220 Z00.00 BP is excellent today Eczema 77564724 L30.8 with fu with betamethas one topical for atophic dermatitis Anxiety 32216954 F41.1 will fu with increase 200 mg, stay away from 300 mg due to hives at high doses [id number] Tono Velasco [facility] [address] [facility], [place] [address] 12/02/2022 10:22:57 12/05/2022 09:08:37 Constipation 34876144 K59.09 stable Insomnia 472704205 G47.0 0 stable Asthma 205011317 J45.21 stablestab le on singulair with albuterol Pain of le ft shoulder joint 0217368954 4830355 M25.512 has been seeing a chiropract or; feeling wellworkin g on therapyred uced weight on that side Anxiety 31510198 F41.1 switch to lexapro; reduce bupropion level [id number] Tono Velasco DO [facility] [address] [facility],[place] [address] 03/31/2023 11:10:27 03/31/2023 14:48:23 Anxiety 48437371 F41.1 doing much better per patient Asthma 985828298 J45.21 stablestab le on singulair with albuterol Gastroesop hageal reflux disease 025179392 K21.9 stable Gastritis 0422968 K29.60 stable Constipation 54011786 K5 9.09 stable Diarrhea 65637008 A07.8 will set up lab work and GI stool panel Inguinal pain 529470030 R10.2 [id number] Tono Velasco [facility] [address] [facility],[place] [address] 05/15/2023 08:48:08 05/16/2023 13:59:24 Adult health examination 265340519 Z00.00 BP is excellent todayalrejunito singh had blood work Diarrhea 14588542 A07.8 never called her for the CT abdomen and pelvis Left inguinal hernia 236 008209 K40.90 agreed to physical therapy referral [id number] Tono Velasco DO [facility] [address] [facility],[place] [address] 09/08/2023 09:06:56 09/11/2023 11:04:54 Perimenopausal disorder 391384922 N95.8 will set up with lab work to determine if she is in missael-menop ause or any other abnormalit ies Inguinal pain 994916035 R10.2 per PT recommenda tion will set up with sports medicine for consult [id number] Tono Velasco [facility] [address] [facility],[place] [address] 08/23/2024 10:27:25 08/23/2024 11:16:34 Active or passive immunization 058256407 Z23 will be getting flu shot Adult [facility] th examination 309077433 Z00.00 BP is excellent todayalrejunito singh had blood work Depression screening 171 022692 Z13.31 SCREENING NEGATIVE Perimenopa usal disorder 879635916 N95.8 will set up with lab work to determine if she is in missael-menop ause or any other abnormalit ies Gastritis 6461689 K29.60 stable Loss of hair 101671120 L 63.8 will set up with additional lab work Health Concerns Section Related Observation LastModified by Organization Detai ls LastModified Time None Recorded Concern Status LastModified by Organization Details LastModified Time None Recorded Advance Directives Directive None Recorded Payers Insurance Date Sequence Insurance Name Policy Number Policy Beaulieu Covered Member ID Beaulieu Member ID Guarantor Name 08/26/2024 1 [employer] [id number] Yudi Gill [id number] Yudi Bautista-Kalyani io 08/19/2024 1 [employer] [place] [id number] Yudi Gill [id number] Yudi Dumonto-Kalyani io Notes Date Note Type Note Provider [...] resolution with chiropractor JOSE CARLOS WEEKS [address] [place], [address], [facility] 12/02/2022 10:53:57 3 text/html c/o GI bloating the patient reports that on 02/28 she was at [place]; had vomiting and diarrhea recurrentlythe patient is having bloating, diarrhea, pain stopped the patient reports having a weekthe patient is still having diarrhea, UC gave her immodium and dicyclomine agreed to lab work and stool culture JOSE CARLOS WEEKS [address] [place], [address], [facility] 03/31/2023 13:34:14 3 text/html Annual [...] (once per year) JOSE CARLOS WEEKS [address] [place], [address], [facility] 05/15/2023 09:15:38 4 text/html f/u appointment The patient is participating in this appointment via telemedicine communication with a phone call/video calling service (Incipient)The patient consents to use of these platforms [...] missael-menopauseshe reports 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 is having 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, 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, the patient reports increased depressionthe patient denies any hot flashesdenies hair or nail or skin changesthe patient denies sleep changes the patient does report weight gainthe patient reports that she is having more issues with concentration as well that she has never had before agreed to lab work JOSE CARLOS WEEKS [address] [place], [address], [facility] 09/08/2023 09:42:37 5 text/html Annual [...] previous the patient has a trip to [place] medication up-to-date on list still getting the MM and MRI due to cystic changes in her breast, everything has been normal JOSE CARLOS WEEKS [address] [facility], [place], [address], [facility] 08/23/2024 11:09:46 OBGyn Episode No OBEpisode recorded.
--- OUTSIDE RECORDS SUMMARY | 2025-02-17 16:17 | XMS_ITS | Clinical Summary ---
Author Organization [facility] Address [address] [facility] [address] [place] [address] Phone Care Team Providers Care Yard Stocker Name Role Phone Tono Velasco DO Primary Care Provider [phone] Allergies No known active allergies Medications cyclobenzaprine HCl (FLEXERIL ORAL) Take by mouth. Active montelukast sodium (SINGULAIR ORAL) Take by mouth. Active albuterol 90 mcg/actuation inhaler Inhale 2 puffs into the lungs every 6 (six) hours as needed for wheezing. Active dibucaine (NUPERCAINAL) 1 % Oint Place rectally 3 (three) times a day as needed. 1 Tube 03/19/2019 Active Active Problems Problem Noted Date Diagnosed Date Overweight (BMI 25.0-29.9) 06/01/2021 Social History Tobacco Use Types Packs/Day Years Used Date Smoking Tobacco: Never Smokeless Tobacco: Never Education Answer Date Recorded Are you interested in more education? Not on jean claude e 11/25/2022 Are you concerned about learning? Not on file 11/25/2022 No 11/25/2022 No 11/25/2022 Digital Access Answer Date Recorded No 12/26/2022 No 12/26/2022 No 12/26/2022 Reliable internet access at home? Not on file 12/26/2022 Device with a working camera? Not on file Comments Unknown Sex and Gender Information Value Date Recorded Sex Assigned at Female 03/19/2019 11:15 AM EDT Legal Sex Female 10:30 PM EDT Gender Identity Female 03/19/2019 11:15 AM EDT Sexual Orientation Straight 03/19/2019 11 :15 AM EDT Last Filed Vital Signs Vital Sign Reading Time Taken Comments Blood Pressure 103/71 03/19/2019 1:32 PM EDT Pulse 71 03/19/2019 1:32 PM EDT Temperature 36.6 C (97.9 F) 03/19/2019 1:32 PM EDT Respiratory Rate 16 03/19/2019 1:32 PM EDT Oxygen Saturation 100% 03/19/2019 1:32 PM EDT Inhaled Oxygen Concentration - - Weight 76.9 kg (169 lb 9.6 oz) 06/01/2021 11:30 AM EDT Height 157.5 cm (5' 2 ) 06/01/2021 11:30 AM EDT Body Mass Index 31.02 06/01/2021 11:30 AM EDT Plan of Treatment Health Maintenance Due Date Last Done Comments DEPRESSION SCREENING 1989 HEPATITIS C SCREENING 12/12/1995 HIV ONE-TIME SCREENING (18-6 5 YEARS) 12/12/1995 PAP SMEAR 1998 SMOKING STATUS SCREENING (On ce After 26 Yrs) 12/12/2003 MAMMOGRAM 2017 COLOGUARD 2022 COLONOSCOPY 2022 COLORECTAL CANCER SCREENING 2022 FIT TEST 2022 FOBT 2022 SIGMOIDOSCOPY 2022 VIRTUAL COLONOSCOPY 2022 COVID-19 VACCINE (3 - 2023-2 5 season) 2024 11/26/2020, 11/16/2020 LIPID PANEL 05/04/2025 05/04/2020 Adult Td,Tdap Booster 05/05/2030 05/05/2020 , 07/31/2008 PNEUMOCOCCAL VACCINES (0-49 years) Aged Out 05/08/2015 No longer eligible b ased on patient's age to complete this topic HEPATITIS A VACCINES Aged Out No long er eligible based on patient's age to complete this topic HIB VACCINES Aged Out No longer eligi ble based on patient's age to complete this topic MENINGOCOCCAL VACCINES (ACWY) Aged Out No longer eligible based on patient's age to complete this topic MENINGOCOCCAL VACCINES (B) Aged Out N o longer eligible based on patient's age to complete this topic Medical Devices Not on file Procedures Procedure Name Priority Date/Time Associated Diagnosis Comments LIPID PANEL Routine 05/04/2020 10:17 AM EDT Routine general medical examination at a health care facility from Last 3 Months or Most Recently Relevant to Health Maintenance Results * Lipid panel (05/04/2020 10:17 AM EDT) HDL 56 mg/dL [facility] Comment: Interpretation <40 mg/dL: Low HDL cholesterol (major risk factor for CHD) Greater than or equal to 60 mg/dL: High HDL cholesterol ( negative risk factor for CHD) HDL - cholesterol is affected by a number of factors, e.g. smoking, excerise, hormones, sex and age. CHOLESTEROL 185 0 - 240 mg/dL [facility] TRIGLYCERIDES 76 30 - 160 mg/dL [facility] LDL 114 50 - 129 mg/dL [facility] Comment: LDL levels in terms of risk for coronary heart disease: <100 mg/dL: Optimal 100-129 mg/dL: Near or above optimal 130-159 mg/dL: Borderline high 160-189 mg/dL: High >190 mg/dL: Very High CARDIAC RISK RATIO 3.3 3.3 - 4.4 C [facility] Blood 05/04/2020 10:1 7 AM EDT 05/04/2020 10:21 AM EDT Ebony [facility] LAB BLOOD ORDERABLES Final Result Performing Organization Address City/State/[facility] Co de Phone Number [address] [address] from Last 3 Months or Most Recently Relevant to Health Maintenance Insurance GENERIC COMMERCIAL GENERIC COMMERCIAL GENERIC COMMERCIAL [place] [id number] [place] [id number] GENERIC COMMERCIAL [place] [id number] [place] [id number] Care Teams Yard Stocker Relationship Specialty Start Date End Date Tono Velasco DO [email or web address] PCP - General Internal Medicine 03/19/19 Additional Source Comments The information contained in this document represents components of the legal health record. It is not the complete legal health record.[facility]
--- OUTSIDE RECORDS SUMMARY | 2025-02-17 16:17 | XMS_ITS | Patient Health Record ---
Author Organization [facility] Address [address] [place] [address] Care Team Providers Care Picked Edge Sewing Machine Operator Name Role Phone Tono Vleasco Primary Care Provider Andrew Burdick [phone] Reason For Referral No Information Medications Medication SIG (Take, Route, Fr equency, Duration) Notes Start Date End Date Status Ranitidine HCl 300 MG 1 tablet at bedtim e Orally Once a day Active Singulair 4 MG 1/2 tablet Orally Once a day Active Omeprazole 20 MG 1 capsule Orally Once a day Active Xyzal prn Active ProAir HFA prn Active Social History Tobacco Use: Social History Observation Description Date Details (start date - stop date) Former Smoker NA - NA Tobacco Use/Smoking Question Answer Notes Patient is a former smoker How long has it been since you last smoked? 3-6 months Alcohol Screen Question Answer Notes Did you have a drink contain ing alcohol in the past year? Yes How often did you have a dri nk containing alcohol in the past year? 2 to 4 times a month (2 points) How many drinks did you have on a typical day when you were drinking in the past year? 1 or 2 drinks (0 point) How often did you have 6 or more drinks on one occasion in the past year? Never (0 point) Points 2 Interpretation Negative Problems Problem Type SNOMED Code ICD Code Onset Dates Problem Status W/U Status Risk Notes Problem [id number] Hemorrhoids, unspecified hemorrhoid type (K64.9) Active confirmed Problem 10127923 Acute gastritis without hemorrhage, unspecified gastritis type (K29.00) Active confirmed Plan Of Treatment No Information Insurance Providers Payer Name Payer Address Payer Phone Subscriber Number Group Number Insured Name Patient Relationship to Insured Coverage Start Date Coverage End Date [facility] [address] [facility] [place] [id number] KENRICK YEN Self - patient is the insured Medical (General) History Medical History History ICD Code asthma Denies [place],DM,CVA,renal disease
== END 2025-02-17 16:18 | disposition home or self-care (01) ==
LOC: HO.HGI 15:54
PROVIDERS: PCP Internal Medicine; Visit Provider Nurse Practitioner Family
DX: K21.9 Gastro-esophageal reflux disease without esophagitis (principal); K52.9 Noninfective gastroenteritis and colitis, unspecified; R14.0 Abdominal distension (gaseous)
CPT/HCPCS: 99214; G2211

== ENCOUNTER 2025-04-08 15:02 | Outpatient (AMB) | payer OTHER, SELFPAY ==
--- NOTE | 2025-04-08 15:05 | MHC.OFFVIS ---
Vital Signs 04/08/25 15:14 Height 5 ft 2 in Weight 140 lb 2 oz BMI 25.6 BP 109/52 L Blood Pressure Location Lt brachial Position Sitting Pulse 75 Intake Visit Reasons: 6 month follow up, breast exam Intake Note: Patient is seen in office for 6 month follow up visit, breast exam. Pt c/o: denies any concerns or changes mm: 09/09/24 MRI: 10/21/24 Lesson Instructor Required: No Hydraulic Rockbreaker Operator: Hydraulic Rockbreaker Operator Present Accompanied by: Self / Same As Patient Allergies No Known Allergies Allergy (Verified 04/08/25 15:15) Medication List - Last Reconciled 04/08/25 by Sergio Fraga MD albuterol sulfate 90 mcg/actuation 2 puffs inhalation Q6H PRN [Benadryl Allergy 25 mg PO DAILY PRN] buspirone 30 mg PO BID clonazepam mg PO escitalopram oxalate 20 mg PO DAILY montelukast 10 mg PO QPM omeprazole 20 mg PO DAILY polyethylene glycol 3350 (Miralax) 17 grams PO DAILY PRN HPI Comments Details: 49-year-old female patient with a known strong family history of breast cancer including her mother and maternal aunt, determined to be high risk for breast cancer due to her family history with a Tyrer-Cuzick remaining lifetime risk of breast cancer of 25%. She has been followed by Dr. Griffin and Bk for this high risk and has previously undergone yearly breast MRI and mammograms. Genetic testing performed by Dr. Bourgeois is reported to be negative for any clinically significant genetic mutations or mutations of unknown significance. Breast MRI on 10/19/2023 revealed an enhancing mass the 1 o'clock position right breast 4 cm from the nipple measuring 7 mm, increased in size from the previous year's MRI. This was felt to be suspicious (BI-RADS 4 right breast ) and focused ultrasound was recommended. This was performed on 11/03/2023. The findings were felt to be an intramammary lymph node, probably benign (BI-RADS 3). Six-month follow-up mammogram performed on 05/07/2024 revealed no suspicious findings. MRI performed on 10/21/2024 revealed a right breast 6 and 4 mm enhancing masses in the central outer right breast far posterior depth. Six-month follow-up MRI was recommended to document stability (BI-RADS 1 left, BI-RADS 3 right). Her most recent mammogram dated 09/09/2024 revealed no mammographic evidence of malignancy (BI-RADS 1). She denies any palpable mass, skin change, nipple discharge or other breast symptoms. She is with 1 ab. Menarche at 14 years old, LMP on 09/11/2022. 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 Gender identity: Female Female Reproductive History Menstrual Age of Menarche: 14 Review of Systems Const All systems reviewed & are unremarkable except as noted in HPI and below Physical Exam Vital Signs: Last Vital Signs Pulse 75 04/08/25 15:14 BP 109/52 L 04/08/25 15:14 BMI result Body Mass Index 25.6 Const General: cooperative and no acute distress Nutritional Appearance: well nourished Orientation/consciousness: patient oriented x3 Limitations: no limitations HEENT Head: Yes normocephalic and Yes atraumatic Ears: hearing grossly normal bilaterally Chest Other: Bilateral dense breast tissue. Left breast: No skin change, no nipple retraction, no nipple discharge, no palpable mass, no enlarged lymph nodes. Right breast: No skin change, no nipple retraction, no nipple discharge, no palpable mass, no enlarged lymph nodes Resp Effort & Inspection: normal respiratory effort, no audible wheezes, no cough and no respiratory distress Cardio Jugular venous distension: no JVD GI Inspection: Yes normal to inspection Skin Other: Warm, dry, no rash Neuro General: patient oriented x3 Extrem General: Yes no clubbing, cyanosis or edema Assessment & Plan Assessment & Plan (1) At high risk for breast cancer: Code(s): Z91.89 - Other specified personal risk factors, not elsewhere classified Category: Medical (2) Family history of breast cancer: Code(s): Z80.3 - Family history of malignant neoplasm of breast Category: Medical Plan 49-year-old female patient with a strong family history of breast cancer determined to be at high risk for breast cancer with a Tyrer-Cuzick remaining lifetime risk of breast cancer of 25%. Most recent mammogram of 09/09/2024 revealed no mammographic evidence of malignancy (BI-RADS 1). A six-month follow-up MRI to at the end of this month and she will call to schedule this testing. Examination today revealed bilateral dense breast tissue but no new suspicious findings. No enlarged lymph nodes were appreciated as well. I recommended a follow-up examination in 6 months. Coding Level of Care Code Est Pt Level 3 (59451) Complex EM visit Add On G2211 Diagnoses At high risk for breast cancer Z91.89 Family history of breast cancer Z80.3
[2025-04-08 15:14] VITALS: BP 109/52; PULSE 75; BMI 25.6
--- OUTSIDE RECORDS SUMMARY | 2025-04-08 17:27 | XMS_ITS | Clinical Summary ---
Author Organization [facility] Address [address] [facility] [address] [place] [address] Phone Care Team Providers Care Settlement Agent Name Role Phone Tono Velasco DO Primary Care Provider [phone] Allergies No known active allergies Medications cyclobenzaprine [...] HEPATITIS C SCREENING 12/12/1995 HIV ONE-TIME SCREENING (18-65 YEARS) 12/12/1995 PAP SMEAR 1998 SMOKING STATUS SCREENING (Once After 26 Yrs) 12/12/2003 MAMMOGRAM 2017 COLOGUARD 2022 COLONOSCOPY 2022 COLORECTAL CANCER SCREENING 2022 FIT TEST 2022 FOBT 2022 SIGMOIDOSCOPY 2022 VIRTUAL COLONOSCOPY 2022 INFLUENZA VACCINE (#1) 2025 0, 04/25/2017, 04/27/2016, Additional history exists COVID-19 VACCINE ( season) 2025 11/26/2020, 11/16/2020 LIPID PANEL 05/04/2025 05/04/2020 Adult Td,Tdap Booster 05/05/2030 05/05/2020, 009 PNEUMOCOCCAL VACCINES (0-49 years) Aged Out 05/08/2015 No longer eligible based on patient's age [...] (05/04/2020 10:17 AM EDT) HDL 56 mg/dL [facility] Comment: Interpretation <40 mg/dL: Low HDL cholesterol (major risk factor for CHD) Greater than or equal to 60 mg/dL: High HDL cholesterol ( negative risk factor for CHD) HDL - cholesterol is affected by a number of factors, e.g. smoking, excerise, hormones, sex and age. CHOLESTEROL 185 0 - 240 mg/dL [facility] TRIGLYCERIDES 76 30 - 160 mg/dL [facility] LDL 114 50 - 129 mg/dL [facility] Comment: LDL levels in terms of risk for coronary heart disease: <100 mg/dL: Optimal 100-129 mg/dL: Near or above optimal 130-159 mg/dL: Borderline high 160-189 mg/dL: High >190 mg/dL: Very High CARDIAC RISK RATIO 3.3 3.3 - 4.4 C [facility] Blood 05/04/2020 10:1 7 AM EDT 05/04/2020 10:21 AM EDT Ebony [facility] LAB BLOOD ORDERABLES Final Result [facility] [address] [place] [address] from Last 3 Months or Most Recently Relevant to Health Maintenance Insurance GENERIC COMMERCIAL GENERIC COMMERCIAL GENERIC COMMERCIAL GENERIC COMMERCIAL GENERIC COMMERCIAL GENERIC COMMERCIAL Care Teams Settlement Agent Relationship Specialty Start Date End Date Tono Velasco DO [email or web address] PCP - General Internal Medicine 03/19/19 Additional Source Comments The information contained in this document represents components of the legal health record. It is not the complete legal health record.[facility]
--- OUTSIDE RECORDS SUMMARY | 2025-04-08 17:27 | XMS_ITS | Patient Health Record ---
Author Organization [facility] Address [address] [place] [address] Care Team Providers Care Telephone Collector Name Role Phone Tono Velasco Primary Care Provider Andrew Burdick [phone] Reason For Referral No Information Medications Medication [...] Problem Status W/U Status Risk Notes Problem [id number] Hemorrhoids, unspecified hemorrhoid type (K64.9) Active confirmed Problem [id number] Acute gastritis without hemorrhage, unspecified gastritis type (K29.00) Active confirmed Plan Of Treatment No Information Insurance Providers Payer Name Payer Address Payer Phone Subscriber Number Group Number Insured Name Patient Relationship to Insured Coverage Start Date Coverage End Date [facility] [address] [facility] [place] [id number] KENRICK YEN Self - patient is the insured Medical (General) History Medical History History ICD Code asthma Denies [place],DM,CVA,renal disease
== END 2025-04-08 15:24 | disposition home or self-care (01) ==
LOC: HO.HGS 15:03
PROVIDERS: PCP Internal Medicine; Visit Provider Surgery
DX: Z91.89 Other specified personal risk factors, not elsewhere classified (principal); Z80.3 Family history of malignant neoplasm of breast
CPT/HCPCS: 99213; G2211

== ENCOUNTER 2025-04-23 09:38 | Outpatient (REF) | payer OTHER, SELFPAY | END 2025-04-23 09:39 | disposition home or self-care (01) | LOC: HO.LNP 09:38 | PROVIDERS: PCP Internal Medicine; Visit Provider Obstetrics & Gynecology | DX: Z01.419 Encounter for gynecological examination (general) (routine) without abnormal findings (principal); Z80.3 Family history of malignant neoplasm of breast | CPT/HCPCS: 87626; 88175 ==

== ENCOUNTER 2025-04-23 09:38 | Outpatient (AMB) | payer OTHER, SELFPAY ==
--- NOTE | 2025-04-23 09:38 | MHC.OFFVIS ---
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 No complaints. Last Pap/HPV was ascus/HPV 16 positive, HPV 18-, colpo biopsy ECC was MAITE 1 Last Mammogram was BI-RADS 1 in 09/24, last breast MRI in 10/22 left was BI-RADS 1, right post BI-RADS 3, six-month follow-up was recommended Last colonoscopy was in 01/21 [facility] Medical History GERD (gastroesophageal reflux disease) Asthma Surgical History H/O LEEP Family History Mother Breast CA, Onset Age: 50 Father Diabetes Maternal Aunt Non-Hodgkin lymphoma Breast CA Paternal Uncle Lung cancer Social History Household Members: None Housing: Apartment Alcohol intake: current Alcohol intake frequency: holidays/special occasions only Patient Tobacco Use Status: Former Tobacco user Tobacco use type: Cigarette service: No Current occupational status: employed 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 Gender identity: Female Female Reproductive History Menstrual Age of Menarche: 14 control method: none Total pregnancies: 1 Date of last pap smear: 11/20/23 (positive hpv ) History of abnormal pap smear: Yes Date of Mammogram: 09/09/24 (negative pap smear, negative hpv ) Review of Systems Const All systems reviewed & are unremarkable except as noted in HPI and below Card Reports as per HPI Resp Reports as per HPI GI Reports as per HPI and Reports no additional complaints Reports as per HPI Physical Exam Vital Signs: Last Vital Signs BP 122/70 04/23/25 09:50 BMI result Body Mass Index 25.6 Const General: cooperative, healthy appearing and comfortable Chest Chest palpation & inspection: normal inspection of the chest and normal palpation of entire chest wall Breast/axilla inspection: normal inspection of the breasts and normal inspection of the axillae Breast/axilla palpation: normal palpation of the breasts, normal palpation of the axillae and no axillary lymphadenopathy Resp Effort & Inspection: normal respiratory effort Auscultation: clear to auscultation bilaterally Percussion: percussion normal Cardio Palpation: normal PMI Rate: regular rate Rhythm: regular rhythm Heart sounds: no murmurs and no rubs Peripheral pulses: Peripheral pulses 2+ throughout GI Inspection: Yes normal to inspection Palpation (GI): Soft to palpation, nontender, no guarding, not rigid and No hepatosplenomegaly present Percussion: Yes normal to percussion Auscultation: normal bowel sounds Rectal Exam - Female: deferred General: Yes bladder normal to palpation External Female Exam: No lesion Speculum Exam - Vagina: normal appearance of the vagina, normal palpation, normal vaginal discharge and not erythematous Speculum Exam - Cervix: normal appearance of the cervix and normal palpation Bimanual exam- vagina & uterus: normal bimanual exam, normal palpation, uterine size normal, bladder normal to palpation, consistency normal and normal palpation Bimanual Exam- Adnexa, other: normal adnexae, no masses and no tenderness Assessment & Plan Assessment & Plan (1) Well woman exam: Comment: History of MAITE 3 in 01/19 status post LEEP cone negative margins MAITE 1 in 11/21 Code(s): Z01.419 - Encounter for gynecological examination (general) (routine) without abnormal findings Category: Medical Plan: Cotesting done. Instructions given the patient to schedule next screening Mammogram in 09/25. Counseled the patient about the recommended dietary allowance of 1000 mg of Calcium & 600 IU of vitamin D. The patient was instructed to perform monthly self-breast exams and to schedule an annual exam in a year; All questions answered and the patient verbalized understanding. Instructed the patient to schedule annual exam in a year (2) Family history of breast cancer: Code(s): Z80.3 - Family history of malignant neoplasm of breast Category: Medical Plan: BI-RADS 3 breast MRI, recommendation to repeat in 04/24, the patient is a process of scheduling the breast MRI in few weeks and a follow-up appointment with Dr. Fraga afterwards Coding Level of Care Code Est Pt Prev Care 40-64y(62799) Diagnoses Well woman exam Z01.419 Family history of breast cancer Z80.3
[2025-04-23 09:50] VITALS: BP 122/70; BMI 25.6
--- OUTSIDE RECORDS SUMMARY | 2025-04-23 11:32 | XMS_ITS | Clinical Summary ---
Author Organization [facility] Address [address] [facility] [address] [place] [address] Phone Care Team Providers Care Waste Duster Name Role Phone Tono Velasco DO Primary Care Provider [phone] Allergies No known active allergies Medications cyclobenzaprine [...] (05/04/2020 10:17 AM EDT) HDL 56 mg/dL [facility] Comment: Interpretation <40 mg/dL: Low HDL cholesterol (major risk factor for CHD) Greater than or equal to 60 mg/dL: High HDL cholesterol ( negative risk factor for CHD) HDL - cholesterol is affected by a number of factors, e.g. smoking, excerise, hormones, sex and age. CHOLESTEROL 185 0 - 240 mg/dL [facility] TRIGLYCERIDES 76 30 - 160 mg/dL [facility] LDL 114 50 - 129 mg/dL [facility] Comment: LDL levels in terms of risk for coronary heart disease: <100 mg/dL: Optimal 100-129 mg/dL: Near or above optimal 130-159 mg/dL: Borderline high 160-189 mg/dL: High >190 mg/dL: Very High CARDIAC RISK RATIO 3.3 3.3 - 4.4 C [facility] Blood 05/04/2020 10:1 7 AM EDT 05/04/2020 10:21 AM EDT Ebony BRANCH LAB BLOOD ORDERABLES Final Result [facility] [address] [place] [address] from Last 3 Months or Most Recently Relevant to Health Maintenance Insurance GENERIC COMMERCIAL GENERIC COMMERCIAL GENERIC COMMERCIAL GENERIC COMMERCIAL GENERIC COMMERCIAL GENERIC COMMERCIAL Care Teams Waste Duster Relationship Specialty Start Date End Date Tono Velasco DO [email or web address] PCP - General Internal Medicine 03/19/19 Additional Source Comments The information contained in this document represents components of the legal health record. It is not the complete legal health record.[facility]
--- OUTSIDE RECORDS SUMMARY | 2025-04-23 11:32 | XMS_ITS | Patient Health Record ---
Author Organization [facility] Address [address] [place] [address] Care Team Providers Care Forms Analyst Name Role Phone Tono Velasco Primary Care Provider Andrew Burdick [phone] Reason For Referral No Information Medications Medication [...] Problem Status W/U Status Risk Notes Problem [id number] Hemorrhoids, unspecified hemorrhoid type (K64.9) Active confirmed Problem 00998874 Acute gastritis without hemorrhage, unspecified gastritis type (K29.00) Active confirmed Plan Of Treatment No Information Insurance Providers Payer Name Payer Address Payer Phone Subscriber Number Group Number Insured Name Patient Relationship to Insured Coverage Start Date Coverage End Date [facility] [address] [facility] [place] [phone] [id number] KENRICK YEN Self - patient is the insured Medical (General) History Medical History History ICD Code asthma Denies [place],DM,CVA,renal disease
== END 2025-04-23 10:09 | disposition home or self-care (01) ==
LOC: HO.HWS 09:38
PROVIDERS: PCP Internal Medicine; Visit Provider Obstetrics & Gynecology
DX: Z01.419 Encounter for gynecological examination (general) (routine) without abnormal findings (principal); Z80.3 Family history of malignant neoplasm of breast
CPT/HCPCS: 99396; 99459

== ENCOUNTER 2025-04-29 13:30 | Outpatient (AMB) | payer OTHER, SELFPAY ==
--- NOTE | 2025-04-29 13:31 | MHC.OFFVIS ---
Vital Signs 04/29/25 13:35 Height 5 ft 2 in Intake Visit Reasons: Colposcopy Print Finisher Required: Yes Pulmonary Physician: Pulmonary Physician Present (dolly) Accompanied by: Spouse Allergies No Known Allergies Allergy (Verified 04/29/25 13:36) HPI Comments Details: Presenting with HPV 16/18 positive, cytology still pending [facility] Medical History GERD (gastroesophageal reflux disease) Asthma Surgical History H/O LEEP Family History Mother Breast CA, Onset Age: 50 Father Diabetes Maternal Aunt Non-Hodgkin lymphoma Breast CA Paternal Uncle Lung cancer Social History Household Members: None Housing: Apartment Alcohol intake: current Alcohol intake frequency: holidays/special occasions only Patient Tobacco Use Status: Former Tobacco user Tobacco use type: Cigarette service: No Current occupational status: employed Current occupation: [employer] Sexual orientation: Straight/Heterosexual Gender identity: Female Female Reproductive History Menstrual Age of Menarche: 14 Review of Systems Const All systems reviewed & are unremarkable except as noted in HPI and below Reports as per HPI and Reports no additional complaints GI Reports no additional complaints Reports no additional complaints Office Procedures Colposcopy Colposcopy: Pre-Procedure Counseling: Before beginning the procedure, I conducted comprehensive counseling with the patient. We thoroughly discussed the procedure itself, including its details, alternatives, and all associated risks. This included but not limited to the following complications such as bleeding, infection, and injury to the vagina, bladder, and vessels, as well as the potential need for transfusion with all its associated risks. Subsequently, the patient sign the consent. Pap smear result: HPV 16/18 positive Urine test in office = Negative Procedure: During the procedure, the following steps were performed: A speculum was inserted, and acetic acid was applied. Colposcopy was conducted, allowing visualization of the transformation zone. Acetowhite lesions were identified at the 6+9+12+3 o'clock position. Cervical biopsies were obtained from the 6+9+12+3 o'clock position, followed by an endocervical curettage (ECC). Vaginoscopy of the upper vagina revealed no evidence of aceto-white lesions. Hemostasis was achieved using Monsel solution, and the patient tolerated the procedure well. Post-Procedure Instructions: The patient was advised to promptly contact the office or the after hours answering service or go to the emergency room if experiencing a temperature exceeding 100.4?F, abdominal pain, nausea/vomiting, or bleeding. Additionally, the patient was instructed to abstain from vaginal intercourse and bathtub use. The patient confirmed understanding of these instructions. Discharge Instructions: The patient was instructed to schedule a follow-up appointment in 2 weeks for further evaluation and management. Please note that this note was generated using a voice recognition program, and errors may have occurred during wax ball knock out worker. 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 The patient verbalized understanding and agreed with the plan, all questions answered. Colposcopy, biopsy /ECC done, see procedure note Orders: Orders AMB HCG Urine Test Today Z32.02 - Encounter for test, result negative AMB Colposcopy Today R87.810 - Cervical high risk human papillomavirus (HPV) DNA test positive Coding Level of Care Code Procedure Only Diagnoses Cervical high risk HPV (human papillomavirus) test positive R87.810
--- OUTSIDE RECORDS SUMMARY | 2025-04-29 14:45 | XMS_ITS | Patient Health Record ---
Author Organization [facility] Address [address] [place] [address] Care Team Providers Care Button Attaching Machine Operator Name Role Phone Tono Velasco Primary Care Provider Andrew Burdick [phone] Reason For Referral No Information Medications Medication [...] Problem Status W/U Status Risk Notes Problem [id number] Hemorrhoids, unspecified hemorrhoid type (K64.9) Active confirmed Problem [id number] Acute gastritis without hemorrhage, unspecified gastritis type (K29.00) Active confirmed Plan Of Treatment No Information Insurance Providers Payer Name Payer Address Payer Phone Subscriber Number Group Number Insured Name Patient Relationship to Insured Coverage Start Date Coverage End Date [facility] [address] [facility] [place] [phone] [id number] KENRICK YEN Self - patient is the insured Medical (General) History Medical History History ICD Code asthma Denies ND,DM,CVA,renal disease
--- OUTSIDE RECORDS SUMMARY | 2025-04-29 14:45 | XMS_ITS | Clinical Summary ---
Author Organization [facility] Address [address] [facility] [address] [place] [phone] Phone Care Team Providers Care Supervisor Records Change Name Role Phone Tono Velasco DO Primary Care Provider [phone] Allergies No known active allergies Medications cyclobenzaprine [...] (05/04/2020 10:17 AM EDT) HDL 56 mg/dL [facility] Comment: Interpretation <40 mg/dL: Low HDL cholesterol (major risk factor for CHD) Greater than or equal to 60 mg/dL: High HDL cholesterol ( negative risk factor for CHD) HDL - cholesterol is affected by a number of factors, e.g. smoking, excerise, hormones, sex and age. CHOLESTEROL 185 0 - 240 mg/dL [facility] TRIGLYCERIDES 76 30 - 160 mg/dL [facility] LDL 114 50 - 129 mg/dL [facility] Comment: LDL levels in terms of risk for coronary heart disease: <100 mg/dL: Optimal 100-129 mg/dL: Near or above optimal 130-159 mg/dL: Borderline high 160-189 mg/dL: High >190 mg/dL: Very High CARDIAC RISK RATIO 3.3 3.3 - 4.4 [facility] Blood 05/04/2020 10:1 7 AM EDT 05/04/2020 10:21 AM EDT Ebony [facility] BLOOD ORDERABLES Final Result [facility] [address] [place] [address] from Last 3 Months or Most Recently Relevant to Health Maintenance Insurance GENERIC COMMERCIAL GENERIC COMMERCIAL GENERIC COMMERCIAL GENERIC COMMERCIAL GENERIC COMMERCIAL GENERIC COMMERCIAL Care Teams Supervisor Records Change Relationship Specialty Start Date End Date Tono Velasco DO [email or web address] PCP - General Internal Medicine 03/19/19 Additional Source Comments The information contained in this document represents components of the legal health record. It is not the complete legal health record.[facility]
== END 2025-04-29 13:57 | disposition home or self-care (01) ==
LOC: HO.HWS 13:30
PROVIDERS: PCP Internal Medicine; Visit Provider Obstetrics & Gynecology
DX: R87.810 Cervical high risk human papillomavirus (HPV) DNA test positive (principal); Z32.02 Encounter for pregnancy test, result negative
CPT/HCPCS: 57455; 57456

== ENCOUNTER 2025-04-29 13:30 | Outpatient (REF) | payer OTHER, SELFPAY ==
--- OUTSIDE RECORDS SUMMARY | 2025-04-29 15:28 | XMS_ITS | Data Portability ---
Author Organization [facility], Telehealth Patient Home Address [address] [place] [address] Assessment Encounter Date Assessment Date Assessment LastModified [...] + TIBC + ferritin, serum 2024 025 [facility], [address] [place] [address], [place], [address], 08/23/2024 10:58:55 PTH (parathyr oid hormone), intact + calcium, serum or plasma 2024 025 [facility], [address] [place] [address], [address], 08/23/2024 10:58:55 estradiol , serum 2024 025 [facility], [address] [place] [address], [address], 09/09/2024 12:21:19 progester one, serum 2024 025 [facility], [address] [place] [address], [address], 09/10/2024 13:10:24 lh + FSH, serum 2024 025 [facility], [address] [place] [address], [address], 09/05/2024 12:57:46 estrogen, total, serum 2024 025 [facility], [address] [place] [address], [address], 09/10/2024 13:10:23 prolactin , serum 2024 025 [facility], [address] [place] [address], [address], 08/23/2024 10:58:55 testoster one, total, serum 2024 025 [facility], [address] [place] [address], [address], 09/12/2024 12:33:03 CMP, serum or plasma 2024 025 [facility], [address] [place] [address], [address], 09/03/2024 13:06:16 CBC w/ auto diff 2024 025 [facility], [address] [place] [address], [address], 08/23/2024 10:58:55 lipid panel, blood 2024 025 [facility], [address] [place] [address], [address], 08/23/2024 10:58:55 vitamin D, 25-hydrox y, total, serum 2024 025 [facility], [address] [place] [address], [address], 08/23/2024 10:58:55 TSH + free T4, serum 2024 025 [facility], [address] [place] [address], [address], 08/23/2024 10:58:55 hemoglobi n A1c, QN, blood 2024 025 [facility], [address] [place] [address], [address], 08/23/2024 10:58:54 vitamin B12 + folate, serum or blood 2024 025 [facility], [address] [place] [address], [address], 08/23/2024 10:58:55 estradiol , serum 2023 024 [facility], [address] [place] [address], [address], 09/18/2023 11:30:14 progester one, serum 2023 024 [facility], [address] [place] [address], [address], 09/08/2023 09:39:22 lh + FSH, serum 2023 024 [facility], [address] [place] [address], [address], 09/08/2023 09:39:22 estrogen, total, serum 2023 024 [facility], [address] [place] [address], [address], 09/15/2023 11:34:22 prolactin , serum 2023 024 [facility], [address] [place] [address], [address], 09/11/2023 12:10:52 testoster one, total, serum 2023 024 [facility], [address] [place] [address], [address], 09/14/2023 12:35:14 TSH + free T4, serum 2023 024 [facility], [address] [place] [address], [address], 09/08/2023 09:39:22 gastroint estinal pathogens panel, PCR, stool 2022 023 [facility], [address] [place] [address], [address], 04/06/2023 12:58:10 CMP, serum or plasma 2022 023 [facility], [address] [place] [address], [address], 04/03/2023 11:20:30 amylase + lipase, serum 2022 023 [facility], [address] [place] [address], [address], 03/31/2023 11:40:30 gamma-glu tamyl transfera se (ggt), serum 2022 023 [facility], [address] [place] [address], [address], 03/31/2023 11:40:30 ESR (erythroc yte sedimenta tion rate), blood 2022 023 [facility], [address] [place] [address], [place], [address], 03/31/2023 11:40:30 C-reactiv e protein, quantitat tomasa, serum or plasma 2022 023 [facility], [address] [place] [address], [place], [address], 03/31/2023 11:40:30 calprotec tin, stool 2022 023 [facility], [address] [place] [address], [place], [address], 04/12/2023 12:36:21 Referral sports medicine referral - had 6 weeks of PT for left groin pain and left hip pain 2023 024 [facility], [address] [place], [address], 09/11/2023 08:19:04 physical therapist referral 2022 023 [facility], [address] [place] [address], [address], 05/16/2023 13:59:24 Procedures None recorded. Surgeries None recorded. Imaging None recorded. Medication Orders omeprazol e 20 mg capsule,d elayed release 2024 025 [id number], [address] [place], [address], 08/23/2024 10:57:37 meloxicam 15 mg tablet 2022 023 [email or web address] 8 [id number], [address] [place], [address], 05/15/2023 08:58:13 escitalop genie 10 mg tablet 2022 023 rtryba [id number], [address] [place], [address], 08/23/2024 10:36:02 escitalop genie 5 mg tablet 2022 023 [email or web address] 8 [id number], [address] [place], [address], 05/15/2023 08:57:47 Patient TargetsNo targets recorded. Patient Instructions Encounter Date Encounter Id Patient Instructions Last Modified By Organization Details Last Modified Time 03/31/2023 [id number] pulse oximetry* [email or web address] Not available 03/31/2023 11:36:00 [...] pulse oxime try* Result 99 Not Available [facility] [address] [facility] [address], [place], [address], 03/18/2023 09:07:32 09/19/19 24 09/05/2023 MAMMO , michelle boykin, jyoti al, gretel tillman No observ ation record ed. [facility] [address] [place], [address], 08/23/2024 11:03:28 10/26/19 24 10/19/2023 MRI, marie t, gretel tillman, w/wo contr ast No observ ation record ed. [facility] (Medical Records) [address] [facility] [place], [address], 08/23/2024 11:03:28 11/03/19 24 11/03/2023 US, shahrammandy t No observ ation record ed. [address] [place], [address], 08/23/2024 11:03:28 11/16/19 24 11/16/2023 MRI, hip, w/ contr ast No observ ation record ed. [facility] (Medical Records) [address] [facility] [place], [address], 08/23/2024 11:03:28 12/12/19 24 12/12/2023 fluor oscop y (PROC ) No observ ation record ed. [facility] (Medical Records) [address] [facility] [place], [address], 08/23/2024 11:03:28 05/07/20 24 05/07/2024 MAMMO , scree lucretia, digit al, bilat eral No observ ation record ed. [address] [place], [address], 08/23/2024 11:03:28 09/13/19 25 09/09/2024 MAMMO , scree lucretia, digit al, bilat eral No observ ation record ed. [email or web address] [address] [place], [address], 09/17/2024 08:25:10 10/26/19 25 10/21/2024 MAMMO , scree lucretia, digit al, bilat eral No observ ation record ed. [facility] (Medical Records) [address] [facility] [place], [address], 10/25/2024 10:00:31 Result Notes None recorded. Problems Name Problem SNOMED Code Status Onset Date Resolution Date Notes Provider Name and Address Organization Details Recorded Time Asthma 378220938 Active 2017 Not Available [facility] 3 11:47:12 Gastriti s 7274318 Active 2017 Not Available [facility] 3 11:47:13 Degenera tive disorder of macula 070678427 Active 2017 Not Available [facility] 3 11:47:13 Anxiety 82887556 Active 2017 mild/ controll ed Not Available [facility] 3 11:47:13 Insomnia 736712733 Active 2017 mild/con trolled [facility] Available [facility] 3 11:47:12 Thyroid nodule 394005408 Completed 201704/25/2018 Neg bx over 10 [facility] 16:20:51 Gastroes ophageal reflux disease 372067848 Active 2018 Not Available [facility] 3 11:47:12 Eczema 62621142 Active 2021 Not Available [facility] 3 11:47:13 Pain of left shoulder joint 0677832477 9733995 Active 2022 Not Available [facility] 3 11:47:12 Inguinal pain 408206980 Active 2022 Not Available [facility] 3 11:47:12 Left inguinal hernia 665498078 Active 2022 JOSE CARLOS WEEKS [address] [place], [address], [facility] 3 09:09:30 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 Procedures Surgical History Date Name Laterality Status Provider Name and Address Organization Details Recorded Time 5 Colposcopy completed Kacey Carter [facility] 04/29/2025 14:03:55 5 Most Recent Mammogram completed Ana Cedeno [facility] 09/17/2024 08:24:42 Imaging Results None recorded. Procedure Notes None recorded. Medical Equipment None Reported. Allergies Allergen ID Allergen Name Allergen Category Reaction Reaction Severity Criticality Documentation Date Start Date Code Code System Note Provider Name and Address Organization Details Recorded Time 2342 Wellbutri n medicatio n hives Not available Not available 04/25/2018 84175 RxNorm 300 mg dose only JOSE CARLOS WEEKS [address] [place] [address], [address] 2 09:23:20 Medications Name Sig [...] TABLET BY MOUTH TWICE A DAY NEEDED 2024 active Not Available Not Available Not Avai lable terconazole 0.8 % vaginal cream APPLY 1 [...] Updated DateTime 5 160.02 cm 22 kg/m2 41694.8 9 g 72 /min 100 % 100 % 110/72 mm[Hg] Ana Cedeno [facility] 5 10:40:10 Date Recorded Body height Body mass index (BMI) Body weight Heart rate Oxygen saturation Oxygen saturation in Arterial blood by Pulse oximetry Systolic And Diastolic Provider Name and Address Organization Details Last Updated DateTime 3 160.02 cm 24.1 kg/m2 48693.5 6 g 67 /min 100 % 100 % 118/60 mm[Hg] JOSE CARLOS WEEKS [address] [place], [address] 3 10:32:35 Date Recorded Body height Body mass index (BMI) Body weight Heart rate Oxygen saturation Oxygen saturation in Arterial blood by Pulse oximetry Systolic And Diastolic Provider Name and Address Organization Details Last Updated DateTime 3 160.02 cm 24.1 kg/m2 41612.5 6 g 80 /min 100 % 100 % 112/76 mm[Hg] Madie Antony [facility] 3 11:24:18 Date Recorded Body height Body mass index (BMI) Body weight Heart rate Oxygen saturation Oxygen saturation in Arterial blood by Pulse oximetry Systolic And Diastolic Provider Name and Address Organization Details Last Updated DateTime 3 160.02 cm 26.7 kg/m2 87489.7 3 g 71 /min 98 % 98 % 110/72 mm[Hg] Hayley Velarde [facility] 3 08:56:50 Social History Question Answer Notes LastModified by Organizat ion Details LastModified Time Tobacco Smoking Status Former Smoker Not Available [facility] 06/02/2020 03:36:23 What Was The Date Of Your Most Recent Tobacco Screening? 08/23/2024 [email or web address] Information not available 08/23/2024 How Many Years Have You Smoked Tobacco? 15 [id number] Information not available 06/02/2020 Sex: Unknown Functional Status Question Answer Note LastModified by Organization D etails LastModified Time Do you or have you ever used any other forms of tobacco or nicotine? No [email or web address] Information not available 09/08/2023 Mental Status None [...] Immunizations Vaccine Type Date Status Note Provider Sanjeev oliveros and Address Organization Details Recorded Time Tdap completed October LISA Manzanares [address] [place] [address], [address], [facility] 04/27/2018 13:47:43 Influenza, split virus, quadrivalent, preservative 2 completed BRANDIE rao [facility] 09/08/2023 09:07:22 influenza, unspecified formulation 4 completed Ana rao [facility] 05/08/2024 12:13:01 SARS-COV-2 (COVID-19) vaccine, UNSPECIFIED 4 completed Ana rao [facility] 05/08/2024 12:13:08 Tdap 0 completed No rao [facility] 05/08/2020 08:28:19 Influenza, split virus, quadrivalent, preservative 0 completed BRANDIE rao [facility] 09/08/2023 09:07:22 COVID-19, mRNA, LNP-S, PF, 30 mcg/0.3 mL dose 1 completed BRANDIE rao [facility] 09/08/2023 09:07:22 COVID-19, mRNA, LNP-S, PF, 30 mcg/0.3 mL dose 1 completed BRANDIE rao [facility] 09/08/2023 09:07:22 Past Encounters Encounter ID Performer Location Encounter Start Date Encounter Closed Date Diagnosis/Indication Diagnosis SNOMED-CT Code Diagnosis ICD10 Code Diagnosis IMO Codes Diagnosis Note [id number] Tono Velasco [facility] [address] [facility],[place] [address] 04/27/2018 13:29:56 04/27/2018 14:10:52 Adult health examination 797413193 Z00.01 mother with breast cancer age 52 Asthma 490027395 J45.90 9 stable Body mass index 25-29 - overweight 151746943 Z68.26 slightly overweight diet and exercise Gastroesop hageal reflux disease 880753591 K21.9 stable Anxiety 29939940 F41.9 well controlled with clonazepam Upper resp iratory infection 11817650 J06.9 [id number] Tono Velasco [facility] [address] [facility], [place] [address] 10/26/2018 13:43:14 10/30/2018 14:18:12 Asthma 327149071 J45.909 Anxiety 02137285 F41.9 Acid reflux 554791199 K2 1.9 prn zantac [id number] Tono Velasco [facility] [address] [facility],[place] [address] 05/03/2019 13:31:22 05/03/2019 14:32:49 Adult health examination 829811464 Z00.00 mother with breast cancer age 52 Active or passive immunization 799309399 Z23 will have flu shot at work flu clinic on the 15 of may Anxiety 93938588 F41.9 uses clonazepam maybe once or twice a week Asthma 380391350 J45.90 9 stable Insomnia 681198973 G47.0 0 uses clonazepam once a week Constipation 99744151 K5 9.00 Gastritis 8178307 K29.70 ranitidine on recall, will rx omeprazole Allergic rhinitis 965250 04 J30.9 Gastroesop hageal reflux disease 309128919 K21.9 stable Vitamin D deficiency 347 79727 E55.9 Body mass index 25-29 - overweight 447003888 Z68.26 slightly overweight diet and exercise Venereal d isease screening 662341840 Z11.3 [id number] Tono Velasco [facility] [address] [facility], [place] [address] 05/04/2020 09:09:12 05/04/2020 09:41:26 Asthma 151117346 J45.909 stable Active or passive immunization 282956520 Z23 send for booster Adult heal th examination 528782733 Z00.00 BP is excellent today Screening for cardiovascular system disease 512449626 Z13.6 [place] [id number] Tono Velasco [facility] [address] [facility], [place] [address] 05/05/2021 08:51:45 05/05/2021 10:22:55 Active or passive immunization 095848557 Z23 will be getting flu shot Adult heal th examination 371305434 Z00.00 BP is excellent today Weight gain 7810749 R63. 5 will fu with lab work [id number] Tono Velasco DO [facility] [address] [facility], ite [facility] [place] [address] 06/29/2021 10:19:04 07/02/2021 15:38:28 Acute severe exacerbation of asthma 068280050 J45.31 will start on pred, abx and cough suppressan t her inhaler is up to date Asthma 844291144 J45.21 will treat for acute exacerbati on Acute bronchitis 2276561 2 J20.8 given instructio ns how to take Cough 84775588 R05.1 no improvemen t and limitied sleep with OTC meds, will give oral liquid [id number] Tono Velasco DO [facility] [address] [facility], [place] [address] 09/07/2021 08:31:50 09/07/2021 14:40:53 Generalized anxiety disorder 07457777 F41.1 will start at low dose of the wellbutrin at 300 mg she gets hivesif she develops hives again will switch to busparpati ent concerned about weight gain [id number] Tono Velasco [facility] [address] [facility], [place] [address] 05/10/2022 08:58:09 05/10/2022 13:46:04 Active or passive immunization 706515040 Z23 will be getting flu shot Adult heal th examination 780017743 Z00.00 BP is excellent today Eczema 85602883 L30.8 with fu with betamethas one topical for atophic dermatitis Anxiety 36876622 F41.1 will fu with increase 200 mg, stay away from 300 mg due to hives at high doses [id number] Tono Velasco [facility] [address] [facility], [place] [address] 12/02/2022 10:22:57 12/05/2022 09:08:37 Constipation 57576335 K59.09 stable Insomnia 129232726 G47.0 0 stable Asthma 738409068 J45.21 stablestab le on singulair with albuterol Pain of le ft shoulder joint 0352880689 0174520 M25.512 has been seeing a chiropract or; feeling wellworkin g on therapyred uced weight on that side Anxiety 02992443 F41.1 switch to lexapro; reduce bupropion level [id number] Tono Velasco [facility] [address] [facility], [place] [address] 03/31/2023 11:10:27 03/31/2023 14:48:23 Anxiety 65965694 F41.1 doing much better per patient Asthma 922186742 J45.21 stablestab le on singulair with albuterol Gastroesop hageal reflux disease 135693278 K21.9 stable Gastritis 7659756 K29.60 stable Constipation 86917333 K5 9.09 stable Diarrhea 54545478 A07.8 will set up lab work and GI stool panel Inguinal pain 355094282 R10.2 [id number] Tono Velasco [facility] [address] [facility], [place] [address] 05/15/2023 08:48:08 05/16/2023 13:59:24 Adult health examination 860562229 Z00.00 BP is excellent todayalrejunito singh had blood work Diarrhea 23737471 A07.8 never called her for the CT abdomen and pelvis Left inguinal hernia 236 348910 K40.90 agreed to physical therapy referral [id number] Tono Velasco [facility] [address] [facility], [place] [address] 09/08/2023 09:06:56 09/11/2023 11:04:54 Perimenopausal disorder 734193416 N95.8 will set up with lab work to determine if she is in missael-menop ause or any other abnormalit ies Inguinal pain 447545585 R10.2 per PT recommenda tion will set up with sports medicine for consult [id number] Tono Velasco [facility] [address] [facility],[place] [address] 08/23/2024 10:27:25 08/23/2024 11:16:34 Active or passive immunization 996062235 Z23 will be getting flu shot Adult heal th examination 553720645 Z00.00 BP is excellent todayalbandar singh had blood work Depression screening 171 839160 Z13.31 SCREENING NEGATIVE Perimenopa usal disorder 253086907 N95.8 will set up with lab work to determine if she is in missael-menop ause or any other abnormalit ies Gastritis 2322492 K29.60 stable Loss of hair 709053610 L 63.8 will set up with additional lab work Health Concerns Section Related Observation LastModified by Organization Detai ls LastModified Time None Recorded Concern Status LastModified by Organization Details LastModified Time None Recorded Advance Directives Directive None Recorded Payers Insurance Date Sequence Insurance Name Policy Number Policy Beaulieu Covered Member ID Beaulieu Member ID Guarantor Name 08/26/2024 1 [employer] [id number] Yudi Gill [id number] Yudi luna 08/19/2024 1 [facility] [id number] Yudi Gill [id number] Yudi Muse io Notes Date Note Type Note Provider Name a nd Address Organization Details Recorded Time 3 text/html ROS as noted in the HPI BP is excellent anxiety: the patient reports [...] resolution with chiropractor JOSE CARLOS WEEKS [address] [place], [address], [facility] 12/02/2022 10:53:57 3 text/html ROS as noted in the HPI c/o GI bloating the patient reports that on 02/28 she was at [place]; had vomiting and diarrhea recurrentlythe patient is having bloating, diarrhea, pain stopped the patient reports having a weekthe patient is still having diarrhea, UC gave her immodium and dicyclomine agreed to lab work and stool culture JOSE CARLOS WEEKS [address] [place], [address], [facility] 03/31/2023 13:34:14 3 text/html Annual WellnessReported by PatientSocial/Behavio ral HistoryFor diet and nutrition, patient reportshealthy diet,discussed vitamin and supplement use,discussed portion control,discussed maintaining calcium balance, anddiscussed diet improvement. For fracture risk, patient reportsno history of fractures,no recent explained fracture,no sudden unexplained fractures, andno previous musculoskeletal injuries. For physical activity, patient reportsexercises on a regular basis,recent increase in physical activity, andgood physical condition. For additional lifestyle factors, patient reportsno tobacco useanddrinks alcohol (mild-moderate).Menta l Status:For depression risk, patient reportsnever feels sad, empty, or tearful,no loss of interest in activities,no significant changes in weight,no sleep disturbances or insomnia,no agitation,no loss of energy,no feelings of worthlessness or guilt,no thoughts of suicide,no history of depression, andno history of mood disorders.Functional AbilityFor hearing, patient reportsno loss of hearing. For vision, patient reportsno vision problems(does not wear glasses or contactssees an eye doctor (once per year)). 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, the patient reports increased depressionthe patient denies any hot flashesdenies hair or nail or skin changesthe patient denies sleep changes the patient does report weight gainthe patient reports that she is having more issues with concentration as well that she has never had before agreed to lab work JOSE CARLOS WEEKS [address] [place], [address], [facility] 09/08/2023 09:42:37 5 text/html Annual WellnessReported by PatientSocial/Behavio ral HistoryFor diet and nutrition, patient reportshealthy diet,discussed vitamin and supplement use,discussed portion control,discussed maintaining calcium balance, anddiscussed diet improvement. For fracture risk, patient reportsno history of fractures,no recent explained fracture,no sudden unexplained fractures, andno previous musculoskeletal injuries. For physical activity, patient reportsexercises on a regular basis,recent increase in physical activity, andgood physical condition. For additional lifestyle factors, patient reportsno tobacco useanddrinks alcohol (mild-moderate).Menta l Status:For depression risk, patient reportsnever feels sad, empty, or tearful,no loss of interest in activities,no significant changes in weight,no sleep disturbances or insomnia,no agitation,no loss of energy,no feelings of worthlessness or guilt,no thoughts of suicide,no history of depression, andno history of mood disorders.Functional AbilityFor hearing, patient reportsno loss of hearing. For vision, patient reportsno vision problems.ROS as noted in the HPI the patient had a bacteria infection in [...] previous the patient has a trip to [place] medication up-to-date on list still getting the MM and MRI due to cystic changes in her breast, everything has been normal JOSE CARLOS WEEKS [address] [place], [address], [facility] Internal Medicine 08/23/2024 11:09:46 OBGyn Episode No OBEpisode recorded.
== END 2025-04-29 13:31 | disposition home or self-care (01) ==
LOC: HO.LNP 13:30
PROVIDERS: PCP Internal Medicine; Visit Provider Obstetrics & Gynecology
DX: R87.810 Cervical high risk human papillomavirus (HPV) DNA test positive (principal); R87.613 High grade squamous intraepithelial lesion on cytologic smear of cervix (HGSIL); Z20.2 Contact with and (suspected) exposure to infections with a predominantly sexual mode of transmission
CPT/HCPCS: 57455; 57456; 81025; 88305; 88341; 88342

== ENCOUNTER 2025-05-21 07:46 | Outpatient (AMB) | payer OTHER, SELFPAY ==
--- OUTSIDE RECORDS SUMMARY | 2025-05-21 07:48 | XMS_ITS | Patient Health Record ---
Author Organization [facility] Address [address] [place] [address] Care Team Providers Care Medical Technologist Blood Bank Name Role Phone Tono Velasco Primary Care Provider Andrew Burdick [phone] Reason For Referral No Information Medications Medication [...] Problem Status W/U Status Risk Notes Problem Hemorrhoids without complication (50014127) Hemorrhoids, unspecified hemorrhoid type (K64.9) Active confirmed Problem Acute gastritis (disorder) (20212066) Acute gastritis without hemorrhage, unspecified gastritis type (K29.00) Active confirmed Plan Of Treatment No Information Insurance Providers Payer Name Payer Address Payer Phone Subscriber Number Group Number Insured Name Patient Relationship to Insured Coverage Start Date Coverage End Date [facility] [address] [place] [phone] [id number] KENRICK YEN Self - patient is the insured Medical (General) History Medical History History ICD Code asthma Denies CT,DM,CVA,renal disease
--- OUTSIDE RECORDS SUMMARY | 2025-05-21 07:49 | XMS_ITS | Clinical Summary ---
Author Organization [facility] Address [address] [place] [id number] Phone Care Team Providers Care Delicatessen Manager Name Role Phone Tono Velasco DO Primary Care Provider [phone] Allergies No known active allergies Medications cyclobenzaprine [...] (05/04/2020 10:17 AM EDT) HDL 56 mg/dL [facility] Comment: Interpretation <40 mg/dL: Low HDL cholesterol (major risk factor for CHD) Greater than or equal to 60 mg/dL: High HDL cholesterol ( negative risk factor for CHD) HDL - cholesterol is affected by a number of factors, e.g. smoking, excerise, hormones, sex and age. CHOLESTEROL 185 0 - 240 mg/dL [facility] TRIGLYCERIDES 76 30 - 160 mg/dL [facility] LDL 114 50 - 129 mg/dL [facility] Comment: LDL levels in terms of risk for coronary heart disease: <100 mg/dL: Optimal 100-129 mg/dL: Near or above optimal 130-159 mg/dL: Borderline high 160-189 mg/dL: High >190 mg/dL: Very High CARDIAC RISK RATIO 3.3 3.3 - 4.4 C [facility] Blood 05/04/2020 10:1 7 AM EDT 05/04/2020 10:21 AM EDT Ebony [facility] BLOOD ORDERABLES Final Result [facility] [address] [place] [address] from Last 3 Months or Most Recently Relevant to Health Maintenance Insurance GENERIC COMMERCIAL GENERIC COMMERCIAL GENERIC COMMERCIAL GENERIC COMMERCIAL GENERIC COMMERCIAL GENERIC COMMERCIAL Care Teams Delicatessen Manager Relationship Specialty Start Date End Date Tono Velasco DO [email or web address] PCP - General Internal Medicine 03/19/19 Additional Source Comments The information contained in this document represents components of the legal health record. It is not the complete legal health record.[facility]
--- OUTSIDE RECORDS SUMMARY | 2025-05-21 07:49 | XMS_ITS | Data Portability ---
Author Organization [facility], Telehealth Patient Home Address [address] [place] [address] Assessment Encounter Date Assessment Date Assessment LastModified [...] + TIBC + ferritin, serum 2024 025 [facility], [address] [place] [address], [place], [address], 08/23/2024 10:58:55 PTH (parathyr oid hormone), intact + calcium, serum or plasma 2024 025 [facility], [address] [place] [address], [id number], 08/23/2024 10:58:55 estradiol , serum 2024 025 [facility], [address] [place] [address], [id number], 09/09/2024 12:21:19 progester one, serum 2024 025 [facility], [address] [place] [address], [id number], 09/10/2024 13:10:24 lh + FSH, serum 2024 025 [facility], [address] [place] [address], [address], 09/05/2024 12:57:46 estrogen, total, serum 2024 025 [facility], [address] [place] [address], [address], 09/10/2024 13:10:23 prolactin , serum 2024 025 [facility], [address] [place] [address], [address], 08/23/2024 10:58:55 testoster one, total, serum 2024 025 [facility], [address] [place] [address], [address], 09/12/2024 12:33:03 CMP, serum or plasma 2024 025 [facility], [address] [place] [address], [id number], 09/03/2024 13:06:16 CBC w/ auto diff 2024 025 [facility], [address] [place] [address], [id number], 08/23/2024 10:58:55 lipid panel, blood 2024 025 [facility], [address] [place] [address], [address], 08/23/2024 10:58:55 vitamin D, 25-hydrox y, total, serum 2024 025 [facility], [address] [place] [address], [address], 08/23/2024 10:58:55 TSH + free T4, serum 2024 025 [facility], [address] [place] [address], [address], 08/23/2024 10:58:55 hemoglobi n A1c, QN, blood 2024 025 [facility], [address] [place] [address], [address], 08/23/2024 10:58:54 vitamin B12 + folate, serum or blood 2024 025 [facility], [address] [place] [address], [address], 08/23/2024 10:58:55 estradiol , serum 2023 024 [facility], [address] [place] [address], [address], 09/18/2023 11:30:14 progester one, serum 2023 024 [facility], [address] [place] [address], [address], 09/08/2023 09:39:22 lh + FSH, serum 2023 024 [facility], [address] [place] [address], [address], 09/08/2023 09:39:22 estrogen, total, serum 2023 024 [facility], [address] [place] [address], [address], 09/15/2023 11:34:22 prolactin , serum 2023 024 [facility], [address] [place] [address], [address], 09/11/2023 12:10:52 testoster one, total, serum 2023 024 [facility], [address] [place] [address], [id number], 09/14/2023 12:35:14 TSH + free T4, serum 2023 024 [facility], [address] [place] [address], [address], 09/08/2023 09:39:22 gastroint estinal pathogens panel, PCR, stool 2022 023 [facility], [address] [place] [address], [address], 04/06/2023 12:58:10 CMP, serum or plasma 2022 023 [facility], [address] [place] [address], [address], 04/03/2023 11:20:30 amylase + lipase, serum 2022 023 [facility], [address] [place] [address], [address], 03/31/2023 11:40:30 gamma-glu tamyl transfera se (ggt), serum 2022 023 [facility], [address] [place] [address], [address], 03/31/2023 11:40:30 ESR (erythroc yte sedimenta tion rate), blood 2022 023 [facility], [address] [place] [address], [place], [address], 03/31/2023 11:40:30 C-reactiv e protein, quantitat tomasa, serum or plasma 2022 023 [facility], [address] [place] [address], [place], [address], 03/31/2023 11:40:30 calprotec tin, stool 2022 023 [facility], [address] [place] [address], [place], [address], 04/12/2023 12:36:21 Referral sports medicine referral - had 6 weeks of PT for left groin pain and left hip pain 2023 024 [facility], [address] [place], [address], 09/11/2023 08:19:04 physical therapist referral 2022 023 [facility], [address] [place] [address], [address], 05/16/2023 13:59:24 Procedures None recorded. Surgeries None recorded. Imaging None recorded. Medication Orders omeprazol e 20 mg capsule,d elayed release 2024 025 [id number], [address] [place], [address], 08/23/2024 10:57:37 meloxicam 15 mg tablet 2022 023 [email or web address] 8 [id number], [address] [place], [address], 05/15/2023 08:58:13 escitalop genie 10 mg tablet 2022 023 rtryba [id number], [address] [place], [address], 08/23/2024 10:36:02 escitalop genie 5 mg tablet 2022 023 [email or web address] 8 [id number], [address] [place], [address], 05/15/2023 08:57:47 Patient TargetsNo targets recorded. Patient Instructions Encounter Date Encounter Id Patient Instructions Last Modified By Organization Details Last Modified Time 03/31/2023 [id number] pulse oximetry* [email or web address] Not available 03/31/2023 11:36:00 [...] pulse oxime try* Result 99 Not Available [facility] [address] [facility] [address], [place], [address], 03/18/2023 09:07:32 09/19/19 24 09/05/2023 MAMMO , michelle boykin, jyoti al, gretel tillman No observ ation record ed. [facility]'s [address] [place], [address], 08/23/2024 11:03:28 10/26/19 24 10/19/2023 MRI, marie t, gretel tillman, w/wo contr ast No observ ation record ed. [facility] (Medical Records) [address] [facility] [place], [address], 08/23/2024 11:03:28 11/03/19 24 11/03/2023 US, shahrammandy t No observ ation record ed. [address] [place], [address], 08/23/2024 11:03:28 11/16/19 24 11/16/2023 MRI, hip, w/ contr ast No observ ation record ed. [facility] (Medical Records) [address] [facility], [address], 08/23/2024 11:03:28 12/12/19 24 12/12/2023 fluor oscop y (PROC ) No observ ation record ed. [facility] (Medical Records) [address] [facility], [address], 08/23/2024 11:03:28 05/07/20 24 05/07/2024 MAMMO , scree lucretia, digit al, bilat eral No observ ation record ed. [address] [place], [address], 08/23/2024 11:03:28 09/13/19 25 09/09/2024 MAMMO , scree lucretia, digit al, bilat eral No observ ation record ed. [email or web address] [address] [place], [address], 09/17/2024 08:25:10 10/26/19 25 10/21/2024 MAMMO , scree lucretia, digit al, bilat eral No observ ation record ed. [facility] (Medical Records) [address] [facility], [address], 10/25/2024 10:00:31 Result Notes None recorded. Problems Name Problem SNOMED Code Status Onset Date Resolution Date Notes Provider Name and Address Organization Details Recorded Time Asthma 187372150 Active 2017 Not Available [facility] 3 11:47:12 Gastriti s 6078576 Active 2017 Not Available [facility] 3 11:47:13 Degenera tive disorder of macula 354959828 Active 2017 Not Available [facility] 3 11:47:13 Anxiety 59228126 Active 2017 mild/ controll ed Not Available [facility] 3 11:47:13 Insomnia 605174775 Active 2017 mild/con trolled Not Available [facility] 11:47:12 Thyroid nodule 353825855 Completed 201704/25/2018 Neg bx over 10 years [facility] 16:20:51 Gastroes ophageal reflux disease 725925095 Active 2018 Not Available [facility] 3 11:47:12 Eczema 68172764 Active 2021 Not Available [facility] 3 11:47:13 Pain of left shoulder joint 6286108964 8205816 Active 2022 Not Available [facility] 3 11:47:12 Inguinal pain 372628709 Active 2022 Not Available [facility] 3 11:47:12 Left inguinal hernia 414898543 Active 2022 JOSE CARLOS WEEKS [address] [place], [address], [facility] 3 09:09:30 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 Procedures Surgical History Date Name Laterality Status Provider Name and Address Organization Details Recorded Time 5 Colposcopy completed Kacey Carter [facility] 04/29/2025 14:03:55 5 Most Recent Mammogram completed Ana Cedeno [facility] 09/17/2024 08:24:42 Imaging Results None recorded. Procedure Notes None recorded. Medical Equipment None Reported. Allergies Allergen ID Allergen Name Allergen Category Reaction Reaction Severity Criticality Documentation Date Start Date Code Code System Note Provider Name and Address Organization Details Recorded Time 2342 Wellbutri n medicatio n hives Not available Not available 04/25/2018 27222 RxNorm 300 mg dose only JOSE CARLOS WEEKS [address] [place] [address], [address] 7[facility] 2 09:23:20 Medications Name Sig [...] Updated DateTime 5 160.02 cm 22 kg/m2 29937.8 9 g 72 /min 100 % 100 % 110/72 mm[Hg] Ana Cedeno [facility] 5 10:40:10 Date Recorded Body height Body mass index (BMI) Body weight Heart rate Oxygen saturation Oxygen saturation in Arterial blood by Pulse oximetry Systolic And Diastolic Provider Name and Address Organization Details Last Updated DateTime 3 160.02 cm 24.1 kg/m2 60806.5 6 g 67 /min 100 % 100 % 118/60 mm[Hg] JOSE CARLOS WEEKS [address] [place], [address] [facility] 3 10:32:35 Date Recorded Body height Body mass index (BMI) Body weight Heart rate Oxygen saturation Oxygen saturation in Arterial blood by Pulse oximetry Systolic And Diastolic Provider Name and Address Organization Details Last Updated DateTime 3 160.02 cm 24.1 kg/m2 07793.5 6 g 80 /min 100 % 100 % 112/76 mm[Hg] Madie Antony [facility] 3 11:24:18 Date Recorded Body height Body mass index (BMI) Body weight Heart rate Oxygen saturation Oxygen saturation in Arterial blood by Pulse oximetry Systolic And Diastolic Provider Name and Address Organization Details Last Updated DateTime 3 160.02 cm 26.7 kg/m2 54752.7 3 g 71 /min 98 % 98 % 110/72 mm[Hg] Hayley Velarde [facility] 3 08:56:50 Social History Question Answer Notes LastModified by Organizat ion Details LastModified Time Tobacco Smoking Status Former Smoker Not Available [facility] 06/02/2020 03:36:23 What Was The Date Of Your Most Recent Tobacco Screening? 08/23/2024 [email or web address] Information not available 08/23/2024 How Many Years Have You Smoked Tobacco? 15 [id number] Information not available 06/02/2020 Sex: Unknown Functional Status Question Answer Note LastModified by Organization D etails LastModified Time Do you or have you ever used any other forms of tobacco or nicotine? No Information not available 09/08/2023 Mental Status None [...] N Blood Transfusion N Breast Cancer N COPD N Depression N Lung Disease N Defects or Inherited Disease N Anxiety Disorder N Muscle, Joint, or Bone Problems N Obesity N Vision or Eye Problems N Arthritis N Polyps N Infertility N Mental Disorder N Cancer N Varicosities N Stroke N Endometriosis N Bladder or Kidney Problems N High Cholesterol N Liver Disease N Headaches N Fibromyalgia N Kidney Disease N Allergies/Hayfever N Heart [...] Recorded Time Tdap completed October LISA Manzanares [address] [place] [address], [address], [facility] 04/27/2018 13:47:43 Influenza, split virus, quadrivalent, preservative 2 completed BRANDIE rao [facility] 09/08/2023 09:07:22 influenza, unspecified formulation 4 completed Ana rao [facility] 05/08/2024 12:13:01 SARS-COV-2 (COVID-19) vaccine, UNSPECIFIED 4 completed Ana rao [facility] 05/08/2024 12:13:08 Tdap 0 completed No rao [facility] 05/08/2020 08:28:19 Influenza, split virus, quadrivalent, preservative 0 completed BRANDIE rao [facility] 09/08/2023 09:07:22 COVID-19, mRNA, LNP-S, PF, 30 mcg/0.3 mL dose 1 completed BRANDIE rao [facility] 09/08/2023 09:07:22 COVID-19, mRNA, LNP-S, PF, 30 mcg/0.3 mL dose 1 completed BRANDIE rao [facility] 09/08/2023 09:07:22 Past Encounters Encounter ID Performer Location Encounter Start Date Encounter Closed Date Diagnosis/Indication Diagnosis SNOMED-CT Code Diagnosis ICD10 Code Diagnosis IMO Codes Diagnosis Note [id number] Tono Velasco [facility] [address] [facility],[place] [address] 04/27/2018 13:29:56 04/27/2018 14:10:52 Adult health examination 258217548 Z00.01 mother with breast cancer age 52 Asthma 927779677 J45.90 9 stable Body mass index 25-29 - overweight 642804226 Z68.26 slightly overweight diet and exercise Gastroesop hageal reflux disease 333375103 K21.9 stable Anxiety 14242338 F41.9 well controlled with clonazepam Upper resp iratory infection 22055682 J06.9 [id number] Tono Velasco [facility] [address] [facility], [place] [address] 10/26/2018 13:43:14 10/30/2018 14:18:12 Asthma 747503850 J45.909 Anxiety 04009210 F41.9 Acid reflux 252561062 K2 1.9 prn zantac [id number] Tono Velasco [facility] [address] [facility],[place] [address] 05/03/2019 13:31:22 05/03/2019 14:32:49 Adult health examination 642949051 Z00.00 mother with breast cancer age 52 Active or passive immunization 990594766 Z23 will have flu shot at work flu clinic on the 15 of may Anxiety 94465601 F41.9 uses clonazepam maybe once or twice a week Asthma 100803043 J45.90 9 stable Insomnia 567110145 G47.0 0 uses clonazepam once a week Constipation 72416132 K5 9.00 Gastritis 9035626 K29.70 ranitidine on recall, will rx omeprazole Allergic rhinitis 466304 04 J30.9 Gastroesop hageal reflux disease 332978074 K21.9 stable Vitamin D deficiency 347 79837 E55.9 Body mass index 25-29 - overweight 675012969 Z68.26 slightly overweight diet and exercise Venereal d isease screening 452227610 Z11.3 [id number] Tono Velasco [facility] [address] [facility] [address] 05/04/2020 09:09:12 05/04/2020 09:41:26 Asthma 941811501 J45.909 stable Active or passive immunization 980229723 Z23 send for booster Adult heal th examination 804455439 Z00.00 BP is excellent today Screening for cardiovascular system disease 964278846 Z13.6 [place] [id number] Tono Velasco [facility] [address] [facility], [place] [address] 05/05/2021 08:51:45 05/05/2021 10:22:55 Active or passive immunization 139719693 Z23 will be getting flu shot Adult heal th examination 460597779 Z00.00 BP is excellent today Weight gain 6880086 R63. 5 will fu with lab work [id number] Tono Velasco DO [facility] [address] [facility], [address] [facility] [place] [address] 06/29/2021 10:19:04 07/02/2021 15:38:28 Acute severe exacerbation of asthma 291883582 J45.31 will start on pred, abx and cough suppressan t her inhaler is up to date Asthma 572143704 J45.21 will treat for acute exacerbati on Acute bronchitis 1549818 2 J20.8 given instructio ns how to take Cough 39365635 R05.1 no improvemen t and limitied sleep with OTC meds, will give oral liquid [id number] Tono Velasco DO [facility] [address] [facility], [place] [address] 09/07/2021 08:31:50 09/07/2021 14:40:53 Generalized anxiety disorder 98300592 F41.1 will start at low dose of the wellbutrin at 300 mg she gets hivesif she develops hives again will switch to busparpati ent concerned about weight gain [id number] Tono Velasco [facility] [address] [facility], [place] [address] 05/10/2022 08:58:09 05/10/2022 13:46:04 Active or passive immunization 420471572 Z23 will be getting flu shot Adult heal th examination 241558442 Z00.00 BP is excellent today Eczema 70245772 L30.8 with fu with betamethas one topical for atophic dermatitis Anxiety 48114414 F41.1 will fu with increase 200 mg, stay away from 300 mg due to hives at high doses [id number] Tono Velasco [facility] [address] [facility], [place] [address] 12/02/2022 10:22:57 12/05/2022 09:08:37 Constipation 21700369 K59.09 stable Insomnia 709166913 G47.0 0 stable Asthma 205883224 J45.21 stablestab le on singulair with albuterol Pain of le ft shoulder joint 4818226617 9658528 M25.512 has been seeing a chiropract or; feeling wellworkin g on therapyred uced weight on that side Anxiety 10148054 F41.1 switch to lexapro; reduce bupropion level [id number] Tono Velasco [facility] [address] [facility], [place] [address] 03/31/2023 11:10:27 03/31/2023 14:48:23 Anxiety 56614081 F41.1 doing much better per patient Asthma 042181322 J45.21 stablestab le on singulair with albuterol Gastroesop hageal reflux disease 960931684 K21.9 stable Gastritis 8244920 K29.60 stable Constipation 17575931 K5 9.09 stable Diarrhea 65283018 A07.8 will set up lab work and GI stool panel Inguinal pain 392635285 R10.2 [id number] Tono Velasco [facility] [address] [facility], [place] [address] 05/15/2023 08:48:08 05/16/2023 13:59:24 Adult health examination 861391440 Z00.00 BP is excellent todayalrejunito singh had blood work Diarrhea 56076342 A07.8 never called her for the CT abdomen and pelvis Left inguinal hernia 236 841406 K40.90 agreed to physical therapy referral [id number] Tono Velasco [facility] [address] [facility], [place] [address] 09/08/2023 09:06:56 09/11/2023 11:04:54 Perimenopausal disorder 414044290 N95.8 will set up with lab work to determine if she is in missael-menop ause or any other abnormalit ies Inguinal pain 381169760 R10.2 per PT recommenda tion will set up with sports medicine for consult [id number] Tono Velasco [facility] [address] [facility],[place] [address] 08/23/2024 10:27:25 08/23/2024 11:16:34 Active or passive immunization 212879565 Z23 will be getting flu shot Adult heal th examination 738471470 Z00.00 BP is excellent todayalbandar singh had blood work Depression screening 171 969126 Z13.31 SCREENING NEGATIVE Perimenopa usal disorder 437143919 N95.8 will set up with lab work to determine if she is in missael-menop ause or any other abnormalit ies Gastritis 1248462 K29.60 stable Loss of hair 089305796 L 63.8 will set up with additional lab work Health Concerns Section Related Observation LastModified by Organization Detai ls LastModified Time None Recorded Concern Status LastModified by Organization Details LastModified Time None Recorded Advance Directives Directive None Recorded Payers Insurance Date Sequence Insurance Name Policy Number Policy Beaulieu Covered Member ID Beaulieu Member ID Guarantor Name 08/26/2024 1 [id number] Yudi Gill [id number] Yudi luna 08/19/2024 1 [facility] [id number] Yudi Gill [id number] Yudi Muse io Notes Date Note Type [...] resolution with chiropractor JOSE CARLOS WEEKS [address] [place], [address], [facility] 12/02/2022 10:53:57 3 text/html ROS as noted in the HPI c/o GI bloating the patient reports that on 02/28 she was at [place]; had vomiting and diarrhea recurrentlythe patient is having bloating, diarrhea, pain stopped the patient reports having a weekthe patient is still having diarrhea, UC gave her immodium and dicyclomine agreed to lab work and stool culture JOSE CARLOS WEEKS [address] [place], [address], [facility] 03/31/2023 13:34:14 3 [...] (once per year)). 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, the patient reports increased depressionthe patient denies any hot flashesdenies hair or nail or skin changesthe patient denies sleep changes the patient does report weight gainthe patient reports that she is having more issues with concentration as well that she has never had before agreed to lab work JOSE CARLOS WEEKS [address] [place], [address], [facility] 09/08/2023 09:42:37 5 [...] previous the patient has a trip to [place] medication up-to-date on list still getting the MM and MRI due to cystic changes in her breast, everything has been normal JOSE CARLOS WEEKS [address] [place], [address], [facility] 08/23/2024 11:09:46 OBGyn Episode No OBEpisode recorded.
--- NOTE | 2025-05-21 07:53 | MHC.OFFVIS ---
Vital Signs 05/21/25 07:56 Height 5 ft 2 in Weight 140 lb BMI 25.6 BP 102/66 Intake Visit Reasons: EMB Configuration Manager Required: No Information Interpreted: non-clinical & clinical Apprentice Funeral Director: Apprentice Funeral Director Present (Diane SINGH) Accompanied by: Self / Same As Patient Allergies No Known Allergies Allergy (Verified 05/21/25 07:57) Is last menstrual period known: Yes Last menstrual period: 05/16/25 HPI Comments Details: Presenting for a follow-up. Pap smear showed ASCUS and AGC, HPV positive, HPV 16/18 negative Colpo biopsy ECC pathology showed the following: A. Endocervix, curettage: Fragments of inflamed endocervical mucosa with reactive changes; multiple additional levels examined. B. Cervix, 3 o'clock, biopsy: Squamous mucosa and rare endocervical epithelium within normal limits. C. Cervix, 6 o'clock, biopsy: Inflamed cervical transformation zone mucosa with reactive changes. D. Cervix, 9 o'clock, biopsy: Inflamed cervical transformation zone mucosa with reactive changes. E. Cervix, 12 o'clock, biopsy: Inflamed cervical transformation zone mucosa with reactive changes. COMMENT: The findings are concordant with the patient's recent Pap/cytology specimen ([id number]; ASCUS with positive HR HPV and HPV 16) - slide reviewed; however, some of the groups on the Pap slide appear to be endometrial in origin and these cells are not represented in the current sample 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 hysteroscopy D&C) & the risks were discussed with the patient including but not limited: pain, uterine perforation, bleeding, infection, possible injury to bladder, bowel, ureter, possible need for blood transfusion with all its possible risks. The patient verbalized understanding all questions answered and signed consent. Urine test done in the office was negative The patient was placed into the dorsal lithotomy position; a speculum was inserted in the vagina. Using aseptic technique for the procedure, the cervix was cleansed with Betadine. The anterior lip of the cervix was grasped with a single tooth tenaculum. The uterus was sounded to 7 cm with a 4 mm Pipelle was used. Tissues samples were obtained and placed in formalin, in a patient labeled container and sent to the pathology department. At the end of the procedure, there was minimal bleeding noted The patient tolerated the procedure well and was discharged in good condition with the following instructions: Nothing in the vagina until the bleeding stops. No sex until the bleeding stops, to call if any of the following occurs: fever (>100.4), flu-like symptoms, abdominal pain, heavy bleeding, four smelling vaginal discharge. The patient was instructed to schedule a Follow up appointment in 2 weeks to discuss pathology results of the biopsy and treatment options. This note was generated with a voice recognition program. Some errors may have been overlooked during the review of this note. Sometimes these errors may affect the content or meaning of a given sentence. [id number] Biopsy Results AMB Test Urine AMB Test Urine Negative Last Edit by Diane Kauffman CMA on 05/21/25 07:58 Results Reviewed Results Reviewed: Laboratory Last Values [facility]st Clinic Negative 05/21/25 07:58 Assessment & Plan Assessment & Plan (1) ASCUS with positive high risk HPV cervical: Code(s): R87.610 - Atypical squamous cells of undetermined significance on cytologic smear of cervix (ASC-US); R87.810 - Cervical high risk human papillomavirus (HPV) DNA test positive Category: Medical Plan: Discussed with the patient the pathology results of the colposcopy biopsies & endocervical curettage (negative). Discussed with the patient the sensitivity specificity, positive and negative predictive value in detecting cervical cancer in addition discussed the regression, persistence and progression rates. Recommended co-testing in 12 months, if cytology and or HPV are abnormal will proceed was colposcopy biopsy and endocervical curettage, if lesions gets worse or stays persistent for 2 years will proceed with loop electric excision procedure. Instructions given to the patient to schedule a co test appointment in 1 year. All questions answered the patient verbalized understanding. (2) Atypical glandular cells of undetermined significance (FRANCES) on cervical Pap smear: Code(s): R87.619 - Unspecified abnormal cytological findings in specimens from cervix uteri Category: Medical Plan: EMB done, see procedure note Orders: Orders AMB HCG Urine Test Today Z32.02 - Encounter for test, result negative AMB Endometrial Biopsy Today R87.619 - Unspecified abnormal cytological findings in specimens from cervix uteri Coding Level of Care Code Est Pt Level 3 (06739) Procedure Only Diagnoses ASCUS with positive high risk HPV cervical R87.610; R87.810 Atypical glandular cells of undetermined significance (FRANCES) on cervical Pap smear R87.619 CPT Codes Endometrial Biopsy - CPT: 22461-[id number] Biopsy ([id number])
[2025-05-21 07:56] VITALS: BP 102/66; BMI 25.6
== END 2025-05-21 08:10 | disposition home or self-care (01) ==
LOC: HO.HWS 07:46
PROVIDERS: PCP Internal Medicine; Visit Provider Obstetrics & Gynecology
DX: R87.610 Atypical squamous cells of undetermined significance on cytologic smear of cervix (ASC-US) (principal); R87.810 Cervical high risk human papillomavirus (HPV) DNA test positive; R87.619 Unspecified abnormal cytological findings in specimens from cervix uteri; Z32.02 Encounter for pregnancy test, result negative
CPT/HCPCS: 58100; 99213

== ENCOUNTER 2025-05-21 07:46 | Outpatient (REF) | payer OTHER, SELFPAY | END 2025-05-21 07:47 | disposition home or self-care (01) | LOC: HO.LNP 07:46 | PROVIDERS: PCP Internal Medicine; Visit Provider Obstetrics & Gynecology | DX: R87.610 Atypical squamous cells of undetermined significance on cytologic smear of cervix (ASC-US) (principal); R87.810 Cervical high risk human papillomavirus (HPV) DNA test positive; N93.9 Abnormal uterine and vaginal bleeding, unspecified; Z32.02 Encounter for pregnancy test, result negative | CPT/HCPCS: 58100; 81025; 88305 ==

== ENCOUNTER 2025-05-26 12:46 | Outpatient (REF) | payer OTHER, SELFPAY ==
--- NOTE | ~2025-05-26 | MR_ITS ---
EXAMINATION: MR BREAST WITHOUT AND WITH CONTRAST, BILATERAL CLINICAL INFORMATION: 6 month follow-up for oval enhancing masses in the central outer right breast. Strong family history of breast cancer including mother and paternal aunt. COMPARISON: Comparison is made with relevant prior imaging. TECHNIQUE: MR imaging of the breast was performed using T1, T2 and fat saturated techniques. Dynamic multiphase imaging was also performed after the administration of intravenous gadolinium contrast agent. Computer generated 3D reconstruction and enhancement kinetic analysis was ulitized by the radiologist in the interpretation of this examination. FINDINGS: Breast composition: Heterogeneous fibroglandular breast tissue Background parenchymal enhancement: Moderate LEFT BREAST: No suspicious enhancing masses or areas of non mass enhancement. No axillary or internal mammary adenopathy. RIGHT BREAST: The previously seen 2 adjacent oval enhancing masses measuring 6 and 4 mm in the central outer right breast far posterior depth are not significantly changed from prior MRI imaging series 1043 image 74/132. No other suspicious enhancing masses or areas of non mass enhancement. No axillary or internal mammary adenopathy. Limited views of the chest and abdomen are unremarkable. MR/MR breast BI wo/w con IMPRESSION: Left: No MRI evidence of malignancy. Right: 1. 4 mm 6 mm oval enhancing masses adjacent to each other in the central outer right breast far posterior depth are not significantly changed from prior MRI. Recommend 6 month follow-up MRI for further evaluation of stability. 2. Recommend ultrasound evaluation of the central outer right breast and low axillary region to further evaluate this area for an ultrasound correlate at this time. ASSESSMENT: LEFT BREAST: BI-RADS 1-Negative RIGHT BREAST: BI-RADS 3-Probably Benign RECOMMENDATIONS: Right breast central outer ultrasound evaluation for further evaluation for an ultrasound correlate. 6 month follow-up MRI to demonstrate 1 year stability. Electronically signed by: Serina Isaacs DO 05/27/2025 05:53 PM EDT
--- OUTSIDE RECORDS SUMMARY | 2025-05-26 16:10 | XMS_ITS | Clinical Summary ---
Author Organization [facility] Address [address] [place] [id number] Phone Care Team Providers Care Claims Adjustor Name Role Phone Tono Velasco DO Primary Care Provider [phone] Allergies No known active allergies Medications cyclobenzaprine [...] (05/04/2020 10:17 AM EDT) HDL 56 mg/dL [facility] Comment: Interpretation <40 mg/dL: Low HDL cholesterol (major risk factor for CHD) Greater than or equal to 60 mg/dL: High HDL cholesterol ( negative risk factor for CHD) HDL - cholesterol is affected by a number of factors, e.g. smoking, excerise, hormones, sex and age. CHOLESTEROL 185 0 - 240 mg/dL [facility] TRIGLYCERIDES 76 30 - 160 mg/dL [facility] LDL 114 50 - 129 mg/dL [facility] Comment: LDL levels in terms of risk for coronary heart disease: <100 mg/dL: Optimal 100-129 mg/dL: Near or above optimal 130-159 mg/dL: Borderline high 160-189 mg/dL: High >190 mg/dL: Very High CARDIAC RISK RATIO 3.3 3.3 - 4.4 [facility] Blood 05/04/2020 10:1 7 AM EDT 05/04/2020 10:21 AM EDT Ebony [facility] BLOOD ORDERABLES Final Result [facility] [address] [place] [address] from Last 3 Months or Most Recently Relevant to Health Maintenance Insurance GENERIC COMMERCIAL GENERIC COMMERCIAL GENERIC COMMERCIAL GENERIC COMMERCIAL GENERIC COMMERCIAL GENERIC COMMERCIAL Care Teams Claims Adjustor Relationship Specialty Start Date End Date Tono Velasco DO [email or web address] PCP - General Internal Medicine 03/19/19 Additional Source Comments The information contained in this document represents components of the legal health record. It is not the complete legal health record.[facility]
--- OUTSIDE RECORDS SUMMARY | 2025-05-26 16:10 | XMS_ITS | Patient Health Record ---
Author Organization [facility] Address [address] [place] [address] Care Team Providers Care Supervisor [employer] Name Role Phone Tono Velasco Primary Care Provider Andrew Burdick [phone] Reason For Referral No Information Medications Medication [...] Status Risk Notes Problem Hemorrhoids without complication (26635482) Hemorrhoids, unspecified hemorrhoid type (K64.9) Active confirmed Problem Acute gastritis (disorder) (65072074) Acute gastritis without hemorrhage, unspecified gastritis type (K29.00) Active confirmed Plan Of Treatment No Information Insurance Providers Payer Name Payer Address Payer Phone Subscriber Number Group Number Insured Name Patient Relationship to Insured Coverage Start Date Coverage End Date [facility] [address] [place] [phone] [id number] KENRICK YEN Self - patient is the insured Medical (General) History Medical History History ICD Code asthma Denies [place],DM,CVA,renal disease
--- OUTSIDE RECORDS SUMMARY | 2025-05-26 16:10 | XMS_ITS | Data Portability ---
Author Organization [facility], Telehealth Patient Home Address [address] [place] [address] Assessment Encounter Date Assessment Date Assessment LastModified [...] + TIBC + ferritin, serum 2024 025 [facility], [address] [place] [address], [place], [address], 08/23/2024 10:58:55 PTH (parathyr oid hormone), intact + calcium, serum or plasma 2024 025 [facility], [address] [place] [address], [id number], 08/23/2024 10:58:55 estradiol , serum 2024 025 [facility], [address] [place] [address], [id number], 09/09/2024 12:21:19 progester one, serum 2024 025 [facility], [address] [place] [address], [address], 09/10/2024 13:10:24 lh + FSH, serum 2024 025 [facility], [address] [place] [address], [id number], 09/05/2024 12:57:46 estrogen, total, serum 2024 025 [facility], [address] [place] [address], [address], 09/10/2024 13:10:23 prolactin , serum 2024 025 [facility], [address] [place] [address], [id number], 08/23/2024 10:58:55 testoster one, total, serum 2024 025 [facility], [address] [place] [address], [address], 09/12/2024 12:33:03 CMP, serum or plasma 2024 025 [facility], [address] [place] [address], [id number], 09/03/2024 13:06:16 CBC w/ auto diff 2024 025 [facility], [address] [place] [address], [id number], 08/23/2024 10:58:55 lipid panel, blood 2024 025 [facility], [address] [place] [address], [id number], 08/23/2024 10:58:55 vitamin D, 25-hydrox y, total, serum 2024 025 [facility], [address] [place] [address], [address], 08/23/2024 10:58:55 TSH + free T4, serum 2024 025 [facility], [address] [place] [address], [id number], 08/23/2024 10:58:55 hemoglobi n A1c, QN, blood 2024 025 [facility], [address] [place] [address], [address], 08/23/2024 10:58:54 vitamin B12 + folate, serum or blood 2024 025 [facility], [address] [place] [address], [address], 08/23/2024 10:58:55 estradiol , serum 2023 024 [facility], [address] [place] [address], [id number], 09/18/2023 11:30:14 progester one, serum 2023 024 [facility], [address] [place] [address], [address], 09/08/2023 09:39:22 lh + FSH, serum 2023 024 [facility], [address] [place] [address], [address], 09/08/2023 09:39:22 estrogen, total, serum 2023 024 [facility], [address] [place] [address], [id number], 09/15/2023 11:34:22 prolactin , serum 2023 024 [facility], [address] [place] [address], [address], 09/11/2023 12:10:52 testoster one, total, serum 2023 024 [facility], [address] [place] [address], [id number], 09/14/2023 12:35:14 TSH + free T4, serum 2023 024 [facility], [address] [place] [address], [id number], 09/08/2023 09:39:22 gastroint estinal pathogens panel, PCR, stool 2022 023 [facility], [address] [place] [address], [address], 04/06/2023 12:58:10 CMP, serum or plasma 2022 023 [facility], [address] [place] [address], [address], 04/03/2023 11:20:30 amylase + lipase, serum 2022 023 [facility], [address] [place] [address], [address], 03/31/2023 11:40:30 gamma-glu tamyl transfera se (ggt), serum 2022 023 [facility], [address] [place] [address], [address], 03/31/2023 11:40:30 ESR (erythroc yte sedimenta tion rate), blood 2022 023 [facility], [address] [place] [address], [place], [address], 03/31/2023 11:40:30 C-reactiv e protein, quantitat tomasa, serum or plasma 2022 023 [facility], [address] [place] [address], [place], [address], 03/31/2023 11:40:30 calprotec tin, stool 2022 023 [facility], [address] [place] [address], [place], [address], 04/12/2023 12:36:21 Referral sports medicine referral - had 6 weeks of PT for left groin pain and left hip pain [address] [facility], [address] [place], [address], 09/11/2023 08:19:04 physical therapist referral 2022 023 [facility], [address] [place] [address], [id number], 05/16/2023 13:59:24 Procedures None recorded. Surgeries None recorded. Imaging None recorded. Medication Orders omeprazol e 20 mg capsule,d elayed release 2024 025 [id number], [address] [place], [address], 08/23/2024 10:57:37 meloxicam 15 mg tablet 2022 023 [email or web address] 8 [id number], [address] [place], [address], 05/15/2023 08:58:13 escitalop genie 10 mg tablet 2022 023 [email or web address] [id number], [address] [place], [address], 08/23/2024 10:36:02 escitalop genie 5 mg tablet 2022 023 [email or web address] 8 [id number], [address] [place], [address], 05/15/2023 08:57:47 Patient TargetsNo targets recorded. Patient Instructions Encounter Date Encounter Id Patient Instructions Last Modified By Organization Details Last Modified Time 03/31/2023 [id number] pulse oximetry* [email or web address] Not available 03/31/2023 11:36:00 [...] pulse oxime try* Result 99 Not Available [facility] [address] [facility] [address], [place], [address], 03/18/2023 09:07:32 09/19/19 24 09/05/2023 MAMMO , michelle boykin, jyoti al, gretel tillman No observ ation record ed. [facility] [address] [place], [address], 08/23/2024 11:03:28 10/26/19 24 10/19/2023 MRI, marie t, gretel tillman, w/wo contr ast No observ ation record ed. [facility] (Medical Records) [address] [place], [address], 08/23/2024 11:03:28 11/03/19 24 11/03/2023 US, shahrammandy t No observ ation record ed. [address] [place], [address], 08/23/2024 11:03:28 11/16/19 24 11/16/2023 MRI, hip, w/ contr ast No observ ation record ed. [facility] (Medical Records) [address] [place], [address], 08/23/2024 11:03:28 12/12/19 24 12/12/2023 fluor oscop y (PROC ) No observ ation record ed. [facility] (Medical Records) [address] [place], [address], 08/23/2024 11:03:28 05/07/20 24 05/07/2024 MAMMO , scree lucretia, digit al, bilat eral No observ ation record ed. [address] [place], [address], 08/23/2024 11:03:28 09/13/19 25 09/09/2024 MAMMO , scree lucretia, digit al, bilat eral No observ ation record ed. [email or web address] [address] [place], [address], 09/17/2024 08:25:10 10/26/19 25 10/21/2024 MAMMO , scree lucretia, digit al, bilat eral No observ ation record ed. [facility] (Medical Records) [address] [place], [address], 10/25/2024 10:00:31 Result Notes None recorded. Problems Name Problem SNOMED Code Status Onset Date Resolution Date Notes Provider Name and Address Organization Details Recorded Time Asthma 640234767 Active 2017 Not Available [facility] 3 11:47:12 Gastriti s 1335800 Active 2017 Not Available [facility] 3 11:47:13 Degenera tive disorder of macula 688796091 Active 2017 Not Available [facility] 3 11:47:13 Anxiety 97810193 Active 2017 mild/ controll ed Not Available [facility] 3 11:47:13 Insomnia 159759956 Active 2017 mild/con trolled Not Available [facility] 3 11:47:12 Thyroid nodule 790670222 Completed 201704/25/2018 Neg bx over 10 years ago [facility] 8 16:20:51 Gastroes ophageal reflux disease 582666128 Active 2018 Not Available [facility] 3 11:47:12 Eczema 93367772 Active 2021 Not Available [facility] 3 11:47:13 Pain of left shoulder joint 6038199604 7111843 Active 2022 Not Available [facility] 3 11:47:12 Inguinal pain 346371317 Active 2022 Not Available [facility] 3 11:47:12 Left inguinal hernia 437600113 Active 2022 JOSE CARLOS WEEKS [address] [place], [address], [facility] 3 09:09:30 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 Procedures Surgical History Date Name Laterality Status Provider Name and Address Organization Details Recorded Time 5 Colposcopy completed Kacey Carter [facility] 04/29/2025 14:03:55 5 Most Recent Mammogram completed Ana Cedeno [facility] 09/17/2024 08:24:42 Imaging Results None recorded. Procedure Notes None recorded. Medical Equipment None Reported. Allergies Allergen ID Allergen Name Allergen Category Reaction Reaction Severity Criticality Documentation Date Start Date Code Code System Note Provider Name and Address Organization Details Recorded Time 2342 Wellbutri n medicatio n hives Not available Not available 04/25/2018 64868 RxNorm 300 mg dose only JOSE CARLOS WEEKS [address] [place] [address], [address] [facility] 2 09:23:20 Medications Name Sig [...] Updated DateTime 5 160.02 cm 22 kg/m2 83034.8 9 g 72 /min 100 % 100 % 110/72 mm[Hg] Ana Cedeno [facility] 5 10:40:10 Date Recorded Body height Body mass index (BMI) Body weight Heart rate Oxygen saturation Oxygen saturation in Arterial blood by Pulse oximetry Systolic And Diastolic Provider Name and Address Organization Details Last Updated DateTime 3 160.02 cm 24.1 kg/m2 33695.5 6 g 67 /min 100 % 100 % 118/60 mm[Hg] JOSE CARLOS WEEKS [address] [place], [address] [facility] 3 10:32:35 Date Recorded Body height Body mass index (BMI) Body weight Heart rate Oxygen saturation Oxygen saturation in Arterial blood by Pulse oximetry Systolic And Diastolic Provider Name and Address Organization Details Last Updated DateTime 3 160.02 cm 24.1 kg/m2 44354.5 6 g 80 /min 100 % 100 % 112/76 mm[Hg] Madie Antony [facility] 3 11:24:18 Date Recorded Body height Body mass index (BMI) Body weight Heart rate Oxygen saturation Oxygen saturation in Arterial blood by Pulse oximetry Systolic And Diastolic Provider Name and Address Organization Details Last Updated DateTime 3 160.02 cm 26.7 kg/m2 64602.7 3 g 71 /min 98 % 98 % 110/72 mm[Hg] Hayley Velarde [facility] 3 08:56:50 Social History Question Answer Notes LastModified by Organizat ion Details LastModified Time Tobacco Smoking Status Former Smoker Not Available [facility] 06/02/2020 03:36:23 What Was The Date Of Your Most Recent Tobacco Screening? 08/23/2024 [email or web address] Information not available 08/23/2024 How Many Years Have You Smoked Tobacco? [id number] Information not available 06/02/2020 Sex: Unknown Functional [...] N Breast Cancer N Blood Transfusion N Lung Disease N Depression N COPD [...] Recorded Time Tdap completed October LISA Manzanares [address] [place] [address], [address], [facility] 04/27/2018 13:47:43 Influenza, split virus, quadrivalent, preservative 2 completed BRANDIE rao [facility] 09/08/2023 09:07:22 influenza, unspecified formulation 4 completed Ana rao [facility] 05/08/2024 12:13:01 SARS-COV-2 (COVID-19) vaccine, UNSPECIFIED 4 completed Ana rao [facility] 05/08/2024 12:13:08 Tdap 0 completed No rao [facility] 05/08/2020 08:28:19 Influenza, split virus, quadrivalent, preservative 0 completed BRANDIE rao [facility] 09/08/2023 09:07:22 COVID-19, mRNA, LNP-S, PF, 30 mcg/0.3 mL dose 1 completed BRANDIE rao [facility] 09/08/2023 09:07:22 COVID-19, mRNA, LNP-S, PF, 30 mcg/0.3 mL dose 1 completed BRANDIE rao [facility] 09/08/2023 09:07:22 Past Encounters Encounter ID Performer Location Encounter Start Date Encounter Closed Date Diagnosis/Indication Diagnosis SNOMED-CT Code Diagnosis ICD10 Code Diagnosis IMO Codes Diagnosis Note [id number] Tono Velasco [facility] [address] [facility],[place] [address] 04/27/2018 13:29:56 04/27/2018 14:10:52 Adult health examination 802554641 Z00.01 mother with breast cancer age 52 Asthma 040956486 J45.90 9 stable Body mass index 25-29 - overweight 790327938 Z68.26 slightly overweight diet and exercise Gastroesop hageal reflux disease 531632199 K21.9 stable Anxiety 17639014 F41.9 well controlled with clonazepam Upper resp iratory infection 63224608 J06.9 [id number] Tono Velacso [facility] [address] [facility], [place] [address] 10/26/2018 13:43:14 10/30/2018 14:18:12 Asthma 483532055 J45.909 Anxiety 31891956 F41.9 Acid reflux 165085912 K2 1.9 prn zantac [id number] Tono Velasco [facility] [address] [facility],[place] [address] 05/03/2019 13:31:22 05/03/2019 14:32:49 Adult health examination 957065921 Z00.00 mother with breast cancer age 52 Active or passive immunization 449324021 Z23 will have flu shot at work flu clinic on the 15 of may Anxiety 64813287 F41.9 uses clonazepam maybe once or twice a week Asthma 474582456 J45.90 9 stable Insomnia 055550463 G47.0 0 uses clonazepam once a week Constipation 41993834 K5 9.00 Gastritis 3471067 K29.70 ranitidine on recall, will rx omeprazole Allergic rhinitis 251814 04 J30.9 Gastroesop hageal reflux disease 087340996 K21.9 stable Vitamin D deficiency 347 64247 E55.9 Body mass index 25-29 - overweight 426042062 Z68.26 slightly overweight diet and exercise Venereal d isease screening 357278578 Z11.3 [id number] Tono Velasco [facility] [address] [facility], [place] [address] 05/04/2020 09:09:12 05/04/2020 09:41:26 Asthma 763531065 J45.909 stable Active or passive immunization 841799757 Z23 send for booster Adult heal th examination 314618362 Z00.00 BP is excellent today Screening for cardiovascular system disease 443294412 Z13.6 [place] [id number] Tono Velasco [facility] [address] [facility], [place] [address] 05/05/2021 08:51:45 05/05/2021 10:22:55 Active or passive immunization 729053977 Z23 will be getting flu shot Adult heal th examination 679319660 Z00.00 BP is excellent today Weight gain 8180357 R63. 5 will fu with lab work [id number] Tono Velasco DO [facility] [address] [facility], [place] [address] 06/29/2021 10:19:04 07/02/2021 15:38:28 Acute severe exacerbation of asthma 764844789 J45.31 will start on pred, abx and cough suppressan t her inhaler is up to date Asthma 225713166 J45.21 will treat for acute exacerbati on Acute bronchitis 6496414 2 J20.8 given instructio ns how to take Cough 64941626 R05.1 no improvemen t and limitied sleep with OTC meds, will give oral liquid [id number] Tnoo Velasco DO [facility] [address] [facility], [place] [address] 09/07/2021 08:31:50 09/07/2021 14:40:53 Generalized anxiety disorder 97733904 F41.1 will start at low dose of the wellbutrin at 300 mg she gets hivesif she develops hives again will switch to busparpati ent concerned about weight gain [id number] Tono Velasco [facility] [address] [facility], [place] [address] 05/10/2022 08:58:09 05/10/2022 13:46:04 Active or passive immunization 785666295 Z23 will be getting flu shot Adult heal th examination 921635339 Z00.00 BP is excellent today Eczema 77011088 L30.8 with fu with betamethas one topical for atophic dermatitis Anxiety 07125371 F41.1 will fu with increase 200 mg, stay away from 300 mg due to hives at high doses [id number] Tono Velasco [facility] [address] [facility], [place] [address] 12/02/2022 10:22:57 12/05/2022 09:08:37 Constipation 32594411 K59.09 stable Insomnia 404936791 G47.0 0 stable Asthma 016327972 J45.21 stablestab le on singulair with albuterol Pain of le ft shoulder joint 6929376479 1290967 M25.512 has been seeing a chiropract or; feeling wellworkin g on therapyred uced weight on that side Anxiety 86729179 F41.1 switch to lexapro; reduce bupropion level [id number] Tono Velasco [facility] [address] [facility], [place] [address] 03/31/2023 11:10:27 03/31/2023 14:48:23 Anxiety 53073213 F41.1 doing much better per patient Asthma 459851927 J45.21 stablestab le on singulair with albuterol Gastroesop hageal reflux disease 296467408 K21.9 stable Gastritis 7788690 K29.60 stable Constipation 86144165 K5 9.09 stable Diarrhea 52893073 A07.8 will set up lab work and GI stool panel Inguinal pain 528745390 R10.2 [id number] Tono Velasco [facility] [address] [facility], [place] [address] 05/15/2023 08:48:08 05/16/2023 13:59:24 Adult health examination 366029459 Z00.00 BP is excellent todayalrejunito singh had blood work Diarrhea 29429330 A07.8 never called her for the CT abdomen and pelvis Left inguinal hernia 236 784666 K40.90 agreed to physical therapy referral [id number] Tono Velasco [facility] [address] [facility], [place] [address] 09/08/2023 09:06:56 09/11/2023 11:04:54 Perimenopausal disorder 465649527 N95.8 will set up with lab work to determine if she is in missael-menop ause or any other abnormalit ies Inguinal pain 801940859 R10.2 per PT recommenda tion will set up with sports medicine for consult [id number] Tono Velasco [facility] [address] [facility],[place] [address] 08/23/2024 10:27:25 08/23/2024 11:16:34 Active or passive immunization 123142185 Z23 will be getting flu shot Adult heal th examination 982885272 Z00.00 BP is excellent todayalbandar singh had blood work Depression screening 171 970097 Z13.31 SCREENING NEGATIVE Perimenopa usal disorder 143997272 N95.8 will set up with lab work to determine if she is in missael-menop ause or any other abnormalit ies Gastritis 1400187 K29.60 stable Loss of hair 406469641 L 63.8 will set up with additional lab work Health Concerns Section Related Observation LastModified by Organization Detai ls LastModified Time None Recorded Concern Status LastModified by Organization Details LastModified Time None Recorded Advance Directives Directive None Recorded Payers Insurance Date Sequence Insurance Name Policy Number Policy Beaulieu Covered Member ID Beaulieu Member ID Guarantor Name 08/26/2024 1 [employer] [id number] Yudi Gill [id number] Yudi luna 08/19/2024 1 [facility] [id number] Yudi Gill [id number] Yudi Muse io Notes Date Note Type [...] resolution with chiropractor JOSE CARLOS WEEKS [address] [place], [address], [facility] 12/02/2022 10:53:57 3 text/html ROS as noted in the HPI c/o GI bloating the patient reports that on 02/28 she was at [place]; had vomiting and diarrhea recurrentlythe patient is having bloating, diarrhea, pain stopped the patient reports having a weekthe patient is still having diarrhea, UC gave her immodium and dicyclomine agreed to lab work and stool culture JOSE CARLOS WEEKS [address] [place], [address], [facility] 03/31/2023 13:34:14 [...] (once per year)). 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, the patient reports increased depressionthe patient denies any hot flashesdenies hair or nail or skin changesthe patient denies sleep changes the patient does report weight gainthe patient reports that she is having more issues with concentration as well that she has never had before agreed to lab work JOSE CARLOS WEEKS [address] [place], [address], [facility] 09/08/2023 09:42:37 [...] previous the patient has a trip to [place] medication up-to-date on list still getting the MM and MRI due to cystic changes in her breast, everything has been normal JOSE CARLOS WEEKS [address] [place], [address], [facility] 08/23/2024 11:09:46 OBGyn Episode No OBEpisode recorded.
== END 2025-05-26 12:47 | disposition home or self-care (01) ==
LOC: HO.MRI 12:46
PROVIDERS: PCP Internal Medicine; Visit Provider Surgery
DX: Z91.89 Other specified personal risk factors, not elsewhere classified (principal); Z80.3 Family history of malignant neoplasm of breast
CPT/HCPCS: 77049; A9585

== ENCOUNTER → 2025-05-26 12:57 | Outpatient (BNV) | payer OTHER, SELFPAY | PROVIDERS: PCP Internal Medicine; Visit Provider Internal Medicine | DX: N63.11 Unspecified lump in the right breast, upper outer quadrant (principal); Z80.3 Family history of malignant neoplasm of breast | CPT/HCPCS: 77049 ==

== ENCOUNTER 2025-06-04 11:08 | Outpatient (REF) | payer OTHER, SELFPAY ==
--- NOTE | ~2025-06-04 | US_ITS ---
EXAMINATION: US DIAGNOSTIC ULTRASOUND BREAST, RIGHT CLINICAL INFORMATION: Lateral right breast ultrasound evaluation recommended from recent breast MRI for a 4 mm and 6 mm oval enhancing mass lateral right breast on MRI. COMPARISON: Comparison is made with relevant prior imaging. TECHNIQUE: Ultrasound of the breast is performed with real-time red scale imaging and color Doppler. FINDINGS: Targeted color Doppler ultrasound scanning in the lateral right breast from 7 11:00 demonstrates normal from nodular breast tissue and ectatic ducts. Results are discussed with the patient at time of visit. US/US Breast RT Limited Mamm Only IMPRESSION: No sonographic abnormal finding in the lateral right breast to account for the enhancing 4 mm 6 mm oval masses on breast MRI. Recommend six-month follow-up MRI for further evaluation of stability. ASSESSMENT: BI-RADS 2: Benign RECOMMENDATION: 6 month follow-up breast MRI. Routine annual mammography screening. This patient's information was entered into a reminder system with a target due date for their next mammogram. Electronically signed by: Serina Isaacs DO 06/04/2025 02:18 PM CHARMAINE DUKES
--- OUTSIDE RECORDS SUMMARY | 2025-06-04 13:26 | XMS_ITS | Clinical Summary ---
Author Organization [facility] Address [address] [place] [id number] Phone Care Team Providers Care Machine Plate Stacker Name Role Phone Tono Velasco DO Primary Care Provider [phone] Allergies No known active allergies Medications cyclobenzaprine [...] (05/04/2020 10:17 AM EDT) HDL 56 mg/dL [facility] Comment: Interpretation <40 mg/dL: Low HDL cholesterol (major risk factor for CHD) Greater than or equal to 60 mg/dL: High HDL cholesterol ( negative risk factor for CHD) HDL - cholesterol is affected by a number of factors, e.g. smoking, excerise, hormones, sex and age. CHOLESTEROL 185 0 - 240 mg/dL [facility] TRIGLYCERIDES 76 30 - 160 mg/dL [facility] LDL 114 50 - 129 mg/dL [facility] Comment: LDL levels in terms of risk for coronary heart disease: <100 mg/dL: Optimal 100-129 mg/dL: Near or above optimal 130-159 mg/dL: Borderline high 160-189 mg/dL: High >190 mg/dL: Very High CARDIAC RISK RATIO 3.3 3.3 - 4.4 [facility] Blood 05/04/2020 10:1 7 AM EDT 05/04/2020 10:21 AM EDT Ebony [facility] LAB BLOOD BKR ORDERABLES Fi nal Result [facility] [address] [place] [address] from Last 3 Months or Most Recently Relevant to Health Maintenance Insurance GENERIC COMMERCIAL GENERIC COMMERCIAL GENERIC COMMERCIAL GENERIC COMMERCIAL GENERIC COMMERCIAL GENERIC COMMERCIAL Care Teams Machine Plate Stacker Relationship Specialty Start Date End Date Tono Velasco DO [email or web address] PCP - General Internal Medicine 03/19/19 Additional Source Comments The information contained in this document represents components of the legal health record. It is not the complete legal health record.[facility]
--- OUTSIDE RECORDS SUMMARY | 2025-06-04 13:26 | XMS_ITS | Patient Health Record ---
Author Organization [facility] Address [address] [place] [address] Care Team Providers Care Director Of Sports Performance Name Role Phone Tono Velasco Primary Care Provider Andrew Burdick [phone] Reason For Referral No Information Medications Medication [...] Status Risk Notes Problem Hemorrhoids without complication (41029086) Hemorrhoids, unspecified hemorrhoid type (K64.9) Active confirmed Problem Acute gastritis (disorder) (49723741) Acute gastritis without hemorrhage, unspecified gastritis type (K29.00) Active confirmed Plan Of Treatment No Information Insurance Providers Payer Name Payer Address Payer Phone Subscriber Number Group Number Insured Name Patient Relationship to Insured Coverage Start Date Coverage End Date [facility] [address] [place] [phone] [id number] KENRICK YEN Self - patient is the insured Medical (General) History Medical History History ICD Code asthma Denies MD,DM,CVA,renal disease
== END 2025-06-04 11:09 | disposition home or self-care (01) ==
LOC: HO.MAMMO 11:08
PROVIDERS: Absent Provider Obstetrics & Gynecology; PCP Internal Medicine; Referring Provider Surgery; Visit Provider Physician Assistant
DX: R92.8 Other abnormal and inconclusive findings on diagnostic imaging of breast (principal)
CPT/HCPCS: 76642

== ENCOUNTER → 2025-06-04 11:30 | Outpatient (BNV) | payer OTHER, SELFPAY | PROVIDERS: Absent Provider Obstetrics & Gynecology; PCP Internal Medicine; Referring Provider Surgery; Visit Provider Internal Medicine | DX: N63.10 Unspecified lump in the right breast, unspecified quadrant (principal) | CPT/HCPCS: 76642 ==

== ENCOUNTER 2025-06-09 08:41 | Outpatient (AMB) | payer OTHER, SELFPAY ==
--- NOTE | 2025-06-09 08:48 | A.OFFVIS_ITS ---
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 The patient has no complaints, no vaginal bleeding, no feverishness chills or abdominal pain. The endometrial biopsy pathology report showed the following: Endometrium, biopsy: Weakly proliferative endometrium; no atypia or hyperplasia identified. Co testing done showed the following: General Category: Epithelial cell abnormality. Adequacy: Endocervical component present. Interpretation: Atypical squamous cells of undetermined significance. Atypical glandular cells of undetermined significance. HPV High Risk: Positive HPV Genotyping 16: Positive HPV Genotyping 18: Negative Colpo biopsy ECC pathology showed the following: A. Endocervix, curettage: Fragments of inflamed endocervical mucosa with reactive changes; multiple additional levels examined. B. Cervix, 3 o'clock, biopsy: Squamous mucosa and rare endocervical epithelium within normal limits. C. Cervix, 6 o'clock, biopsy: Inflamed cervical transformation zone mucosa with reactive changes. D. Cervix, 9 o'clock, biopsy: Inflamed cervical transformation zone mucosa with reactive changes. E. Cervix, 12 o'clock, biopsy: Inflamed cervical transformation zone mucosa with reactive changes. COMMENT: The findings are concordant with the patient's recent Pap/cytology specimen ([id number]; ASCUS with positive HR HPV and HPV 16) - slide reviewed; however, some of the groups on the Pap slide appear to be endometrial in origin and these cells are not represented in the current sample 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 Gender identity: Female Female Reproductive History Menstrual Age of Menarche: 14 Review of Systems Const All systems reviewed & are unremarkable except as noted in HPI and below Reports as per HPI and Reports no additional complaints GI Reports no additional complaints Reports no additional complaints Physical Exam Vital Signs: BMI result Body Mass Index 25.6 Assessment & Plan Assessment & Plan (1) ASCUS with positive high risk HPV cervical: Comment: With AGC and HPV 16 positive Code(s): R87.610 - Atypical squamous cells of undetermined significance on cytologic smear of cervix (ASC-US); R87.810 - Cervical high risk human papillomavirus (HPV) DNA test positive Category: Medical Plan: Discussed with the patient the pathology results of the colposcopy biopsies , endocervical curettage and EMB . Discussed with the patient the sensitivity specificity, positive and negative predictive value in detecting cervical cancer in addition discussed the regression, persistence and progression rates. Recommended co-testing in 12 months, if cytology and or HPV are abnormal will proceed was colposcopy biopsy and endocervical curettage. Instructions given to the patient to schedule a co test appointment in 1 year. All questions answered the patient verbalized understanding. Coding Level of Care Code Est Pt Level 3 (00006) Diagnoses ASCUS with positive high risk HPV cervical R87.610; R87.810
[2025-06-09 08:49] VITALS: BMI 25.6
--- OUTSIDE RECORDS SUMMARY | 2025-06-09 09:04 | XMS_ITS | Patient Health Record ---
Author Organization [facility] Address [address] [place] [address] Care Team Providers Care Mechanics Handyman Name Role Phone Tono Velasco Primary Care Provider Andrew Burdick [phone] Reason For Referral No Information Medications Medication [...] Status Risk Notes Problem Hemorrhoids without complication ([id number]) Hemorrhoids, unspecified hemorrhoid type (K64.9) Active confirmed Problem Acute gastritis (disorder) (88139185) Acute gastritis without hemorrhage, unspecified gastritis type (K29.00) Active confirmed Plan Of Treatment No Information Insurance Providers Payer Name Payer Address Payer Phone Subscriber Number Group Number Insured Name Patient Relationship to Insured Coverage Start Date Coverage End Date [facility] [address] [facility] [place] [phone] [id number] KENRICK YEN Self - patient is the insured Medical (General) History Medical History History ICD Code asthma Denies [place],DM,CVA,renal disease
== END 2025-06-09 09:11 | disposition home or self-care (01) ==
LOC: HO.HWS 08:42
PROVIDERS: PCP Internal Medicine; Visit Provider Obstetrics & Gynecology
DX: R87.610 Atypical squamous cells of undetermined significance on cytologic smear of cervix (ASC-US) (principal); R87.810 Cervical high risk human papillomavirus (HPV) DNA test positive
CPT/HCPCS: 99213